=== PATIENT | female | born 1975 | race Caucasian/White ===

== ENCOUNTER 2016-07-17 19:01 | Inpatient (IN) | payer SELFPAY ==
[~2016-07-17] VITALS: Ht 167.6 cm; Wt 114.8 kg
[~2016-07-17 19:01] MED LIST: ALPR1TAB2 PO; CYCL10TA2 PO; IPRA4AER IH; LISI-338 PO; NAPR500T PO
[2016-07-17] MEDS ORDERED: DEXAMETHASONE SOD PHOS 4 MG/ML VIAL IV ONE (19:45)
[2016-07-17] MEDS ORDERED: IPRATRPIUM/ALBUTEROL 0.5/2.5MG 3 ML NEBU. NEB ONE (19:45)
[2016-07-17 20:01] LABS: BASO # 0.1 x10^3/uL (0.0-0.2); BASO % 1 % (0-3); EOS % 5 % (0-3); HEMATOCRIT 44.6 % (36.0-47.0); HEMOGLOBIN 14.8 g/dL (12.0-15.5); LYMPH # 2.5 x10^3/uL (1.0-4.8); LYMPH % 26 % (24-48); MEAN CORPUSCULAR HEMOGLOBIN 28 pg (25-35); MEAN CORPUSCULAR HGB CONC 33 g/dL (31-37); MEAN CORPUSCULAR VOLUME 84 fL (79-100); MONO % 7 % (0-9); NEUT % 61 % (31-73); PLATELET COUNT 204 x10^3/uL (140-400); RED BLOOD COUNT 5.29 x10^6/uL (3.50-5.40); RED CELL DISTRIBUTION WIDTH 16.2 % (11.5-14.5); WHITE BLOOD COUNT 9.4 x10^3/uL (4.0-11.0)
[2016-07-17 20:12] LABS: CALCIUM 8.4 mg/dL (8.5-10.1); CREATININE 0.8 mg/dL (0.6-1.0); GFR 78.3; POTASSIUM 4.3 mmol/L (3.5-5.1)
--- NOTE | 2016-07-17 20:41 | PHYS DOC ---
Past Medical History Past Medical History: Anxiety, Asthma, Depression Additional Past Medical Histor: back pain, CURRENTLY ON METHADONE PROGRAM FOR OPIOD ADDICTION Past Surgical History: Hysterectomy, Tubal ligation Additional Past Surgical Histo: UMBILICAL HERNIA, BLADDER SLING Alcohol Use: None Drug Use: None Adult General Chief Complaint Chief Complaint: MULTIPLE COMPLAINTS HPI HPI Patient is a 41 year old F who presents with increased shortness of breath and wheezing with a low-grade temperature for the past couple days. Patient states she's had a productive cough for the past couple days. Patient states she is a smoker with a history of asthma and has increased wheezing. Patient did denies any nausea/vomiting/diarrhea. Patient denies any chest pain. Patient is no other complaints. Pertinent exam finds: Wheezing bilaterally ED course: Patient was seen and examined CBC, CMP, troponin, EKG, chest x-ray, breathing treatment ordered 2224: Discussed CC/HP/PMH with Dr. Degroot and recommends admit [] 2305: Updated patient on CT findings and plan to her Lovenox for her PE, patient breathing is much better after her breathing treatments Pertinent results: 1950: EKG shows normal sinus rhythm rate of 87 no STEMI CTA chest: IMPRESSION: There is motion artifact versus filling defect in a second order branch of the right pulmonary artery. Pulmonary embolism is favored. Mediastinal bilateral hilar adenopathy. MDM: After reviewing the chart, CC/HPI/PMH, physical exam, [lab results], [ radiological results], leave the patient has acute asthma exacerbation with an acute PE contributing to her shortness of breath and wheezing. Patient be admitted to hospital for further evaluation and management. Patient was started on Lovenox. Review of Systems Review of Systems GEN: Denies fevers, chills, sweats HEENT: Denies blurred vision, sore throat CV: Denies chest pain RESP: Wheezing, shortness of breath, cough GI: Denies n/v/d NEURO: Denies confusion, dizziness MSK: Denies weakness, joint pain/swelling Current Medications Current Medications Current Medications Medications (Trade) Dose Ordered Sig/Georgette Start Time Stop Time Status Last Admin Dose Admin Albuterol/ Ipratropium (Duoneb) 3 ml 1X ONCE 07/17/16 19:45 07/17/16 19:46 DC 07/17/16 19:51 3 ML Dexamethasone Sodium Phosphate (Decadron) 10 mg 1X ONCE 07/17/16 19:45 07/17/16 19:46 DC 07/17/16 20:26 10 MG Info (Do NOT chart on this entry -- for MONITORING) 1 each PRN DAILY PRN 07/17/16 21:45 07/19/16 21:44 Iohexol (Omnipaque 350 Mg/ml) 100 ml 1X ONCE 07/17/16 22:00 07/17/16 22:01 DC 07/17/16 22:09 100 ML Allergies Allergies Allergies Coded Allergies Type Severity Reaction Last Updated Verified No Known Drug Allergies 01/19/13 No Physical Exam Physical Exam GEN.: No apparent distress. Alert and oriented. HEENT: Head is normocephalic, atraumatic NECK: Supple. LUNGS: Inspiratory and expiratory wheezes bilaterally. HEART: RRR, S1, S2 present. Peripheral pulses intact ABDOMEN: Soft, nontender. Positive bowel sounds. EXTREMITIES: Without any cyanosis. NEUROLOGIC: Normal speech, normal tone PSYCHIATRIC: Normal affect, normal mood. SKIN: No ulcerations Current Patient Data Vital Signs Vital Signs Date Time Temp Pulse Resp B/P (MAP) Pulse Ox O2 Delivery O2 Flow Rate FiO2 07/17/16 21:00 84 25 91 Nasal Cannula 4.0 07/17/16 20:30 144/83 (103) 07/17/16 19:10 99.8 99.8 Lab Values Laboratory Tests Test 07/17/16 19:50 White Blood Count 9.4 x10^3/uL (4.0-11.0) Red Blood Count 5.29 x10^6/uL (3.50-5.40) Hemoglobin 14.8 g/dL (12.0-15.5) Hematocrit 44.6 % (36.0-47.0) Mean Corpuscular Volume 84 fL (79-100) Mean Corpuscular Hemoglobin 28 pg (25-35) Mean Corpuscular Hemoglobin Concent 33 g/dL (31-37) Red Cell Distribution Width 16.2 % (11.5-14.5) H Platelet Count 204 x10^3/uL (140-400) Neutrophils (%) (Auto) 61 % (31-73) Lymphocytes (%) (Auto) 26 % (24-48) Monocytes (%) (Auto) 7 % (0-9) Eosinophils (%) (Auto) 5 % (0-3) H Basophils (%) (Auto) 1 % (0-3) Neutrophils # (Auto) 5.7 x10^3uL (1.8-7.7) Lymphocytes # (Auto) 2.5 x10^3/uL (1.0-4.8) Monocytes # (Auto) 0.7 x10^3/uL (0.0-1.1) Eosinophils # (Auto) 0.5 x10^3/uL (0.0-0.7) Basophils # (Auto) 0.1 x10^3/uL (0.0-0.2) Sodium Level 139 mmol/L (136-145) Potassium Level 4.3 mmol/L (3.5-5.1) Chloride Level 101 mmol/L (98-107) Carbon Dioxide Level 33 mmol/L (21-32) H Anion Gap 5 (6-14) L Blood Urea Nitrogen 10 mg/dL (7-20) Creatinine 0.8 mg/dL (0.6-1.0) Estimated GFR (Cockcroft-Gault) 78.3 Glucose Level 109 mg/dL (70-99) H Calcium Level 8.4 mg/dL (8.5-10.1) L Troponin I Quantitative < 0.017 ng/mL (0.000-0.055) Laboratory Tests 07/17/16 19:50 Laboratory Tests 07/17/16 19:50 EKG EKG EKG shows normal sinus rhythm rate of 87 no STEMI [] Radiology/Procedures Radiology/Procedures CTA chest: IMPRESSION: There is motion artifact versus filling defect in a second order branch of the right pulmonary artery. Pulmonary embolism is favored. Mediastinal bilateral hilar adenopathy.[] Course & Med Decision Making Course & Med Decision Making Pertinent Labs and Imaging studies reviewed. (See chart for details) [] Dragon Disclaimer Dragon Disclaimer This electronic medical record was generated, in whole or in part, using a voice recognition dictation system. Departure Departure Impression: Primary Impression: Pulmonary embolus Additional Impression: Asthma exacerbation Disposition: 09 ADMITTED INPATIENT Admitting Physician: Other (Dr. Degroot) Referrals: KATARZYNA DEGROOT MD (PCP) Problem Qualifiers Primary Impression: Pulmonary embolus Pulmonary embolism type: other Chronicity: acute Acute cor pulmonale presence: without acute cor pulmonale Qualified Codes: I26.99 - Other pulmonary embolism without acute cor pulmonale KATH EVANGELISTA DO Jul 17, 2016 20:41
[2016-07-17] MEDS ORDERED: CONTRAST GIVEN MC PRN (21:45)
[2016-07-17] MEDS ORDERED: IOHEXOL 350 MG/ML 100 ML VIAL. IV ONE (22:00)
[2016-07-17] MEDS ORDERED: MORPHINE SULFATE 4 MG/ML DISP.SYRIN. IV PRN (22:30)
[2016-07-17] MEDS ORDERED: ONDANSETRON PF 4 MG/2 ML VIAL. IV PRN (22:30)
[2016-07-17] MEDS ORDERED: ACETAMINOPHEN 325 MG TABLET. PO PRN (22:30)
--- NOTE | 2016-07-17 22:42 | RAD ---
CT Angio chest Indication: SOA, NO PRIORS Technique: Multiple contiguous axial images were obtained through the chest after administration of intravenous iodinated contrast. Coronal, sagittal, and 3-D MIP reformations were created. PQRS STATEMENT: One or more of the following in the visualized dose reduction techniques were utilized for this study: 1. Automatic exposure control, 2. Adjustment of the mA and/or kV according to patient size, 3. Use of iterative reconstruction technique Findings: There appears to be a filling defect within the second order branch of the pulmonary arteries on the right. This is best appreciated on axial image 55. Heart size is normal. No pericardial effusion. The thoracic aorta is normal in caliber. There is atelectasis noted in the bilateral lung bases. No pneumothorax. Motion artifact degrades some of the detail of the lung. Limited subdiaphragmatic evaluation is unremarkable. IMPRESSION: There is motion artifact versus filling defect in a second order branch of the right pulmonary artery. Pulmonary embolism is favored. Mediastinal bilateral hilar adenopathy. Electronically signed by: Johny Cespedes MD (07/17/2016 10:39 PM)
[2016-07-17] MEDS ORDERED: AZITHRMYCN 500MG IVPB FOR OMNI 250 ML IV ONE (23:00)
[2016-07-17] MEDS ORDERED: ANTI-COAG MONITOR BY PHARMACY. MC PRN (23:15)
[2016-07-17] MEDS ORDERED: ALPRAZolam 0.5 MG TABLET PO PRN (23:30)
[2016-07-18 00:08] VITALS: BP 132/88
[2016-07-18] MEDS ORDERED: PROAIR HFA8.5 GM INH (01:05)
[2016-07-18] MEDS ORDERED: CITA40TA12 PO (01:05)
[2016-07-18] MEDS ORDERED: METH10TA2 PO (01:05)
[2016-07-18] MEDS ORDERED: CLON1TAB PO (01:05)
[2016-07-18 03:25] VITALS: BP 119/66
[2016-07-18 04:55] LABS: BASO % 0 % (0-3); EOS % 0 % (0-3); HEMATOCRIT 45.9 % (36.0-47.0); LYMPH # 1.1 x10^3/uL (1.0-4.8); LYMPH % 12 % (24-48); MEAN CORPUSCULAR HEMOGLOBIN 28 pg (25-35); MEAN CORPUSCULAR HGB CONC 33 g/dL (31-37); MEAN CORPUSCULAR VOLUME 85 fL (79-100); MONO % 2 % (0-9); NEUT % 86 % (31-73); PLATELET COUNT 218 x10^3/uL (140-400); RED CELL DISTRIBUTION WIDTH 16.1 % (11.5-14.5); WHITE BLOOD COUNT 9.6 x10^3/uL (4.0-11.0)
[2016-07-18 05:11] LABS: CALCIUM 8.7 mg/dL (8.5-10.1); CREATININE 0.9 mg/dL (0.6-1.0); GFR 68.3; POTASSIUM 3.7 mmol/L (3.5-5.1)
[2016-07-18 07:00] VITALS: BP 105/63
[2016-07-18 07:28] LABS: PLT ESTIMATE ADEQUATE (ADEQUATE)
--- NOTE | 2016-07-18 08:01 | RAD ---
EXAM: Chest 2 views. HISTORY: Shortness of breath, fever, cough, chills, asthma. COMPARISON: 12/14/2014. FINDINGS: Frontal and lateral views of the chest are obtained. There are mild patchy airspace opacities in the bases, most overly in the left lower lobe. There is no pneumothorax or pleural effusion. The heart is not enlarged. IMPRESSION: 1. Bilateral mild lower lobe pneumonia. Follow-up to resolution is recommended.
[2016-07-18] MEDS ORDERED: clonazePAM 1 MG TABLET PO PRN (09:15)
[2016-07-18] MEDS: IPRATRPIUM/ALBUTEROL 0.5/2.5MG 3 ML NEBU. NEB SCH ×2 (09:20→11:57)
--- NOTE | 2016-07-18 22:03 | PDOC1 ---
History and Physical Date of Admission Date of Admission 07/17/16 Identification/Chief Complaint Chief Complaint Shortness of breath Problems: History of Present Illness History of Present Illness Unable to be obtained as patient left AMA before I was able to see her Current Problem List Problem List Problems Medical Problems: (1) Asthma exacerbation Status: Acute (2) Pulmonary embolus Status: Acute Current Medications Current Medications Current Medications Medications (Trade) Dose Ordered Sig/Georgette Start Time Stop Time Status Last Admin Dose Admin Acetaminophen (Tylenol) 650 mg PRN Q4HRS PRN 07/17/16 22:30 07/18/16 13:31 DC Albuterol/ Ipratropium (Duoneb) 3 ml RTQID 07/18/16 09:20 07/18/16 13:32 DC Alprazolam (Xanax) 0.5 mg PRN Q8HRS PRN 07/17/16 23:30 07/18/16 09:19 DC 07/17/16 23:31 0.5 MG Azithromycin 250 ml @ 250 mls/hr 1X ONCE 07/17/16 23:00 07/17/16 23:59 DC 07/18/16 00:26 250 MLS/HR Ceftriaxone Sodium 50 ml @ 100 mls/hr 1X ONCE 07/17/16 23:00 07/17/16 23:29 DC 07/18/16 00:25 100 MLS/HR Clonazepam (KlonoPIN) 1 mg PRN BID PRN 07/18/16 09:15 07/18/16 13:31 DC Dexamethasone Sodium Phosphate (Decadron) 10 mg 1X ONCE 07/17/16 19:45 07/17/16 19:46 DC 07/17/16 20:26 10 MG Enoxaparin Sodium (Lovenox 120mg Syringe) 110 mg Q12HR 07/18/16 09:00 07/18/16 13:31 DC Enoxaparin Sodium (Lovenox Per Pharmacy Treatment Dosing) 1 each PRN DAILY PRN 07/17/16 23:15 07/18/16 13:31 DC Info (Anti-Coagulation Monitoring By Pharmacy) 1 each PRN DAILY PRN 07/17/16 23:15 07/18/16 13:31 DC 07/18/16 01:34 1 EACH Info (Do NOT chart on this entry -- for MONITORING) 1 each PRN DAILY PRN 07/17/16 21:45 07/18/16 13:31 DC Iohexol (Omnipaque 350 Mg/ml) 100 ml 1X ONCE 07/17/16 22:00 07/17/16 22:01 DC 07/17/16 22:09 100 ML Morphine Sulfate 4 mg PRN Q2HR PRN 07/17/16 22:30 07/18/16 06:59 DC Ondansetron HCl (Zofran) 4 mg PRN Q8HRS PRN 07/17/16 22:30 07/18/16 13:31 DC Allergies Allergies Allergies Coded Allergies Type Severity Reaction Last Updated Verified No Known Drug Allergies 01/19/13 No ROS Review of System CONSTITUTIONAL: No fever or chills EYES: No recent changes SKIN: No rash or itching CARDIOVASCULAR: No chest pain, syncope, palpitations, or edema RESPIRATORY: No SOB or cough GASTROINTESTINAL: No nausea, vomiting or abdominal pain NEUROLOGICAL: No headaches or weakness ENDOCRINE: No cold or heat intolerance GENITOURINARY: No urgency or frequency of urination MUSCULOSKELETAL: No back pain or joint pain LYMPHATICS: No enlarged lymph nodes PSYCHIATRIC: No anxiety or depression Physical Exam Physical Exam GEN.: No apparent distress. Alert and oriented. HEENT: Head is normocephalic, atraumatic NECK: Supple. LUNGS: Clear to auscultation. HEART: RRR, S1, S2 present. Peripheral pulses intact ABDOMEN: Soft, nontender. Positive bowel sounds. EXTREMITIES: Without any cyanosis. NEUROLOGIC: Normal speech, normal tone PSYCHIATRIC: Normal affect, normal mood. SKIN: No ulcerations Vitals Vitals Vital Signs Date Time Temp Pulse Resp B/P (MAP) Pulse Ox O2 Delivery O2 Flow Rate FiO2 07/18/16 08:15 Nasal Cannula 4.0 07/18/16 07:00 97.5 56 18 105/63 (77) 86 97.5 Labs Labs Laboratory Tests Test 07/17/16 00:10 07/17/16 19:50 07/18/16 04:25 Lactic Acid Level 1.2 mmol/L (0.4-2.0) White Blood Count 9.4 x10^3/uL (4.0-11.0) 9.6 x10^3/uL (4.0-11.0) Red Blood Count 5.29 x10^6/uL (3.50-5.40) 5.40 x10^6/uL (3.50-5.40) Hemoglobin 14.8 g/dL (12.0-15.5) 15.0 g/dL (12.0-15.5) Hematocrit 44.6 % (36.0-47.0) 45.9 % (36.0-47.0) Mean Corpuscular Volume 84 fL (79-100) 85 fL (79-100) Mean Corpuscular Hemoglobin 28 pg (25-35) 28 pg (25-35) Mean Corpuscular Hemoglobin Concent 33 g/dL (31-37) 33 g/dL (31-37) Red Cell Distribution Width 16.2 % (11.5-14.5) 16.1 % (11.5-14.5) Platelet Count 204 x10^3/uL (140-400) 218 x10^3/uL (140-400) Neutrophils (%) (Auto) 61 % (31-73) 86 % (31-73) Lymphocytes (%) (Auto) 26 % (24-48) 12 % (24-48) Monocytes (%) (Auto) 7 % (0-9) 2 % (0-9) Eosinophils (%) (Auto) 5 % (0-3) 0 % (0-3) Basophils (%) (Auto) 1 % (0-3) 0 % (0-3) Neutrophils # (Auto) 5.7 x10^3uL (1.8-7.7) 8.3 x10^3uL (1.8-7.7) Lymphocytes # (Auto) 2.5 x10^3/uL (1.0-4.8) 1.1 x10^3/uL (1.0-4.8) Monocytes # (Auto) 0.7 x10^3/uL (0.0-1.1) 0.2 x10^3/uL (0.0-1.1) Eosinophils # (Auto) 0.5 x10^3/uL (0.0-0.7) 0.0 x10^3/uL (0.0-0.7) Basophils # (Auto) 0.1 x10^3/uL (0.0-0.2) 0.0 x10^3/uL (0.0-0.2) Sodium Level 139 mmol/L (136-145) 139 mmol/L (136-145) Potassium Level 4.3 mmol/L (3.5-5.1) 3.7 mmol/L (3.5-5.1) Chloride Level 101 mmol/L (98-107) 103 mmol/L (98-107) Carbon Dioxide Level 33 mmol/L (21-32) 28 mmol/L (21-32) Anion Gap 5 (6-14) 8 (6-14) Blood Urea Nitrogen 10 mg/dL (7-20) 12 mg/dL (7-20) Creatinine 0.8 mg/dL (0.6-1.0) 0.9 mg/dL (0.6-1.0) Estimated GFR (Cockcroft-Gault) 78.3 68.3 Glucose Level 109 mg/dL (70-99) 236 mg/dL (70-99) Calcium Level 8.4 mg/dL (8.5-10.1) 8.7 mg/dL (8.5-10.1) Troponin I Quantitative < 0.017 ng/mL (0.000-0.055) Segmented Neutrophils % 92 % (35-66) Lymphocytes % 7 % (24-48) Monocytes % 1 % (0-10) Platelet Estimate Adequate (ADEQUATE) Laboratory Tests Test 07/18/16 04:25 White Blood Count 9.6 x10^3/uL (4.0-11.0) Red Blood Count 5.40 x10^6/uL (3.50-5.40) Hemoglobin 15.0 g/dL (12.0-15.5) Hematocrit 45.9 % (36.0-47.0) Mean Corpuscular Volume 85 fL (79-100) Mean Corpuscular Hemoglobin 28 pg (25-35) Mean Corpuscular Hemoglobin Concent 33 g/dL (31-37) Red Cell Distribution Width 16.1 % (11.5-14.5) Platelet Count 218 x10^3/uL (140-400) Neutrophils (%) (Auto) 86 % (31-73) Lymphocytes (%) (Auto) 12 % (24-48) Monocytes (%) (Auto) 2 % (0-9) Eosinophils (%) (Auto) 0 % (0-3) Basophils (%) (Auto) 0 % (0-3) Neutrophils # (Auto) 8.3 x10^3uL (1.8-7.7) Lymphocytes # (Auto) 1.1 x10^3/uL (1.0-4.8) Monocytes # (Auto) 0.2 x10^3/uL (0.0-1.1) Eosinophils # (Auto) 0.0 x10^3/uL (0.0-0.7) Basophils # (Auto) 0.0 x10^3/uL (0.0-0.2) Segmented Neutrophils % 92 % (35-66) Lymphocytes % 7 % (24-48) Monocytes % 1 % (0-10) Platelet Estimate Adequate (ADEQUATE) Sodium Level 139 mmol/L (136-145) Potassium Level 3.7 mmol/L (3.5-5.1) Chloride Level 103 mmol/L (98-107) Carbon Dioxide Level 28 mmol/L (21-32) Anion Gap 8 (6-14) Blood Urea Nitrogen 12 mg/dL (7-20) Creatinine 0.9 mg/dL (0.6-1.0) Estimated GFR (Cockcroft-Gault) 68.3 Glucose Level 236 mg/dL (70-99) Calcium Level 8.7 mg/dL (8.5-10.1) VTE Prophylaxis Ordered VTE Prophylaxis Devices: Yes VTE Pharmacological Prophylaxi: Yes Assessment/Plan Assessment/Plan 41yo F with hx of HTN, anxiety, asthma, tobacco abuse, opiate addiction on chronic methadone therapy p/w shortness of breath. Pt found to have acute pulmonary embolism, admitted and started on Lovenox. However, patient had a Methadone appt the day following admission and left around 10am the morning after admission. I was unable to see the patient prior to her leaving. KATARZYNA PERDOMO MD Jul 18, 2016 22:03
--- NOTE | 2016-07-19 08:51 | EKG ---
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
== END 2016-07-18 10:00 | disposition left against medical advice (07) | DRG 176 ==
LOC: ER 19:01 → 4 NORTH 22:26
PROVIDERS: ADMIT Family Medicine; ATTEND Family Medicine
DX: I26.99 Other pulmonary embolism without acute cor pulmonale (principal); J45.901 Unspecified asthma with (acute) exacerbation; F11.20 Opioid dependence, uncomplicated; I10 Essential (primary) hypertension; F32.9 Major depressive disorder, single episode, unspecified; F41.9 Anxiety disorder, unspecified; Z53.21 Procedure and treatment not carried out due to patient leaving prior to being seen by health care provider; F17.200 Nicotine dependence, unspecified, uncomplicated; Z90.710 Acquired absence of both cervix and uterus; Z98.51 Tubal ligation status
CPT/HCPCS: 36415; 71020; 71275; 80048; 83605; 84484; 85007; 85027; 87040; 93005; 94640; 96372; 96374; 99406; J0456; J0690; J1100; J1650; J7620; Q9967; 99285-25

== ENCOUNTER 2016-07-29 23:04 | Emergency (ER) | payer SELFPAY ==
[~2016-07-29] VITALS: Ht 172.7 cm; Wt 114.8 kg
[~2016-07-29 23:04] MED LIST changes: +CITA40TA12 PO; +CLON1TAB PO; +METH10TA2 PO; +PROAIR HFA8.5 GM INH
--- NOTE | 2016-07-30 | PHYS DOC ---
Past Medical History Past Medical History: Anxiety, Asthma, Depression, Pneumonia Additional Past Medical Histor: back pain, CURRENTLY ON METHADONE PROGRAM FOR OPIOD ADDICTION,PE Past Surgical History: Hysterectomy, Tubal ligation Additional Past Surgical Histo: UMBILICAL HERNIA, BLADDER SLING Alcohol Use: None Drug Use: Opiates Social History Narrative: CURRENTLY ON METHADONE PROGRAM FOR OPIATE USE Adult General Chief Complaint Chief Complaint: CHEST PAIN HPI HPI Patient is a 41 year old female with recent diagnosis of pulmonary embolism who presents with family for concern of health. She has been anxious today about her health since changing to Xarelto from Coumadin. She made this change today. Her anxiety worsened tonight, leading to panic attack. She noted chest pain, general shakiness, and anxious feeling exactly like prior panic attacks. Since arrival to the emergency department and seeing her normal vitals, her symptoms have resolved. She is currently asymptomatic during my exam. Other than EKG, she does not want any further workup. She denies cough, fever or chills, hemoptysis, leg pain or swelling, palpitations, orthopnea, exertional symptoms. Review of Systems Review of Systems Constitutional: Denies fever or chills [] Eyes: Denies change in visual acuity, redness, or eye pain [] HENT: Denies nasal congestion or sore throat [] Respiratory: Denies cough or shortness of breath [] Cardiovascular: No additional information not addressed in HPI [] GI: Denies abdominal pain, nausea, vomiting, bloody stools or diarrhea [] : Denies dysuria or hematuria [] Musculoskeletal: Denies back pain or joint pain [] Integument: Denies rash or skin lesions [] Neurologic: Denies headache, focal weakness or sensory changes [] Endocrine: Denies polyuria or polydipsia [] Allergies Allergies Allergies Coded Allergies Type Severity Reaction Last Updated Verified No Known Drug Allergies 01/19/13 No Physical Exam Physical Exam Constitutional: Well developed, well nourished, no acute distress, non-toxic appearance. [] HENT: Normocephalic, atraumatic, bilateral external ears normal, oropharynx moist, nose normal. [] Eyes: PERRLA, EOMI. [] Neck: Normal range of motion, supple. [] Cardiovascular:Heart rate regular rhythm [] Lungs & Thorax: Bilateral breath sounds clear to auscultation [] Abdomen: Bowel sounds normal, soft, no tenderness. [] Skin: Warm, dry, no erythema, no rash. [] Back: Normal range of motion. [] Extremities: No tenderness, ROM intact, no edema, no palpable cord. [] Neurologic: Alert and oriented X 3, normal motor function, normal sensory function, no focal deficits noted. [] Psychologic: Affect normal, judgement normal, mood normal. [] Current Patient Data Vital Signs Vital Signs Date Time Temp Pulse Resp B/P (MAP) Pulse Ox O2 Delivery O2 Flow Rate FiO2 07/30/16 00:45 67 20 143/79 (100) 96 Room Air 07/29/16 23:10 98.5 98.5 EKG EKG EKG as interpreted by me as normal sinus rhythm, rate 84, no ST-T changes, OK 98 , QTc 471, no ectopy Course & Med Decision Making Course & Med Decision Making She has remained without symptoms during observation. She would like to be discharged home. Return precautions given. She understands and agrees with plan. Dragon Disclaimer Dragon Disclaimer This electronic medical record was generated, in whole or in part, using a voice recognition dictation system. Departure Departure Impression: Primary Impression: Anxiety attack Disposition: HOME, SELF-CARE Condition: STABLE Referrals: KATARZYNA PERDOMO MD (PCP) Patient Instructions: Medical Screening Exam Additional Instructions: Continue current medications. Follow-up with your primary care doctor. Return for any concerns. Stefanie NEIL MD Jul 30, 2016 00:00
[2016-07-30 00:45] VITALS: BP 143/79
--- NOTE | 2016-07-30 08:49 | EKG ---
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
== END 2016-07-30 00:45 | disposition home or self-care (01) ==
LOC: ER 23:04
DX: F41.9 Anxiety disorder, unspecified (principal); J45.909 Unspecified asthma, uncomplicated; Z90.710 Acquired absence of both cervix and uterus; Z98.51 Tubal ligation status; Z86.711 Personal history of pulmonary embolism; F32.9 Major depressive disorder, single episode, unspecified; F41.0 Panic disorder [episodic paroxysmal anxiety]; F11.10 Opioid abuse, uncomplicated
CPT/HCPCS: 93005; 99284

== ENCOUNTER 2016-11-02 22:02 | Emergency (ER) | payer SELFPAY ==
[~2016-11-02] VITALS: Ht 167.6 cm; Wt 99.8 kg
[2016-11-02 22:42] VITALS: BP 144/80
[2016-11-02] MEDS ORDERED: SULF1TAB24 PO (23:45)
[2016-11-02] MEDS ORDERED: NYST15CR TP (23:45)
--- NOTE | 2016-11-02 23:45 | PHYS DOC ---
Past Medical History Past Medical History: Anxiety, Asthma, Depression, Pneumonia Additional Past Medical Histor: back pain, CURRENTLY ON METHADONE PROGRAM FOR OPIOD ADDICTION,PE Past Surgical History: Hysterectomy, Tubal ligation Additional Past Surgical Histo: UMBILICAL HERNIA, BLADDER SLING Alcohol Use: Occasionally Drug Use: Methadone Adult General Chief Complaint Chief Complaint: ABSCESS HPI HPI Patient is a 41 year old female presents to the emergency room and stating that she has an abscess in her perineal area. She states that she noticed him for one day. She states that her boyfriend tried to squeeze the area in which he states he did get some yellow drainage from the site however patient states that hurts that she was passed out. He area appears to be red and hard in nature. Patient also has a yeast infection in the panniculus area. Patient denies fever, chills or any nausea vomiting. She states her tetanus immunization is up-to-date. Review of Systems Review of Systems Constitutional: Denies fever or chills [] Eyes: Denies change in visual acuity, redness, or eye pain [] HENT: Denies nasal congestion or sore throat [] Respiratory: Denies cough or shortness of breath [] Cardiovascular: No additional information not addressed in HPI [] GI: Denies abdominal pain, nausea, vomiting, bloody stools or diarrhea [] : Denies dysuria or hematuria [] Musculoskeletal: Denies back pain or joint pain [] Integument: Denies rash or skin lesions [] Neurologic: Denies headache, focal weakness or sensory changes [] Endocrine: Denies polyuria or polydipsia [] Allergies Allergies Allergies Coded Allergies Type Severity Reaction Last Updated Verified No Known Drug Allergies 01/19/13 No Physical Exam Physical Exam Constitutional: Well developed, well nourished, no acute distress, non-toxic appearance. [] HENT: Normocephalic, atraumatic, bilateral external ears normal, oropharynx moist, no oral exudates, nose normal. [] Eyes: PERRLA, EOMI, conjunctiva normal, no discharge. [] Neck: Normal range of motion, no tenderness, supple, no stridor. [] Cardiovascular: Patient pink warm and dry Lungs & Thorax: No respiratory distress noted Skin: Warm, dry, no erythema, red yeast type rash noted in the panniculus abdomen. Patient with an abscess noted in the perineal area the area appears to be red with a dark area in the middle. No induration noted. Extremities: No tenderness, no cyanosis, no clubbing, ROM intact, no edema. [] Neurologic: Alert and oriented X 3, normal motor function, normal sensory function, no focal deficits noted. [] Psychologic: Affect normal, judgement normal, mood normal. [] Current Patient Data Vital Signs Vital Signs Date Time Temp Pulse Resp B/P (MAP) Pulse Ox O2 Delivery O2 Flow Rate FiO2 11/02/16 22:42 98.2 78 18 96 Room Air 98.2 EKG EKG [] Radiology/Procedures Radiology/Procedures [] Course & Med Decision Making Course & Med Decision Making Pertinent Labs and Imaging studies reviewed. (See chart for details) Patient will be provided with a prescription for Bactrim as well as nystatin. She was recommended to keep the areas clean and dry. Also recommended warm moist packs to the perineum area 5 times a day to help promote drainage. Patient was encouraged to follow-up with primary care physician in the next 3-5 days. Signs and symptoms to return back to emergency department been provided. All questions and concerns been answered at patient's bedside. [] Dragon Disclaimer Dragon Disclaimer This electronic medical record was generated, in whole or in part, using a voice recognition dictation system. Departure Departure Impression: Primary Impression: Abscess Additional Impression: Jessica infection Disposition: 01 HOME, SELF-CARE Condition: STABLE Referrals: KATARZYNA PERDOMO MD (PCP) Patient Instructions: Abscess, [id number], Yeast Infection of the Skin, Easy- to-Read Additional Instructions: Keep the area clean and dry. Wash areas with soap and water several times a day. Use the nystatin cream underneath your abdominal area. Warm moist packs to the abscessed area 5 times a day. Medication as prescribed. Follow-up primary care physician next 5-7 days. Return back to emergency prior signs and symptoms of become worse. Scripts Sulfamethoxazole/Trimethoprim (BACTRIM DS TABLET) 1 Each Tablet 1 TAB PO BID, #20 TAB Prov: FRANCISCA MORATAYA APRN 11/02/16 Nystatin (NYSTATIN) 15 Gm Cream..g. 1 GEMA TP BID, #30 GM Prov: FRANCISCA MORATAYA APRN 11/02/16 Problem Qualifiers FRANCISCA MORATAYA APRN Nov 02, 2016 23:45
== END 2016-11-03 00:16 | disposition home or self-care (01) ==
LOC: ER 22:02
DX: L02.215 Cutaneous abscess of perineum (principal); B37.9 Candidiasis, unspecified; F41.9 Anxiety disorder, unspecified; F32.9 Major depressive disorder, single episode, unspecified; J45.909 Unspecified asthma, uncomplicated; F11.10 Opioid abuse, uncomplicated; Z87.01 Personal history of pneumonia (recurrent); Z96.0 Presence of urogenital implants; Z90.710 Acquired absence of both cervix and uterus; Z98.51 Tubal ligation status
CPT/HCPCS: 99283

== ENCOUNTER 2017-01-27 14:16 | Emergency (ER) | payer SELFPAY ==
[2017-01-09 14:45] VITALS: BP 123/51
[~2017-01-27 14:16] MED LIST changes: +DOXY100C2 PO; +IPRA3AMP NEB; +NAPR-683 PO; -NAPR500T PO; +NYST15CR TP; +RIVA1TAB PO; +SULF1TAB24 PO
[2017-01-27] MEDS ORDERED: RIVA20TA2 PO (23:06)
[2017-01-29] MEDS ORDERED: LEVO750T5 PO (13:11)
== END 2017-01-27 14:55 | disposition left against medical advice (07) ==
LOC: ER 14:16
DX: Z53.21 Procedure and treatment not carried out due to patient leaving prior to being seen by health care provider (principal)

== ENCOUNTER 2017-01-27 17:09 | Inpatient (IN) | payer SELFPAY ==
[~2017-01-27] VITALS: Ht 167.6 cm; Wt 117.0 kg
--- NOTE | 2017-01-27 18:16 | EKG ---
[facility] [address] [place] [address] Test Date: 2017-01-27 Test Time: 18:12:06 Pat Name: DREA JOHNSTON Department: Room: Gender: F Acid Mixer: TW : 1975 Requested By: KADEN RUTH Order Number: [id number] Reading MD: Measurements Intervals [place] Rate: 118 P: -56 TX: 132 QRS: 45 QRSD: 82 T: 52 QT: 320 QTc: 451 Interpretive Statements SINUS TACHYCARDIA OTHERWISE NORMAL ECG RI6.01 Compared to ECG 01/07/2017 12:49:09 No significant changes
[2017-01-27 18:31] LABS: OBC FLU VALID
[2017-01-27 19:00] LABS: BASO # 0.1 x10^3/uL (0.0-0.2); BASO % 1 % (0-3); EOS % 2 % (0-3); HEMATOCRIT 44.7 % (36.0-47.0); HEMOGLOBIN 14.8 g/dL (12.0-15.5); LYMPH # 1.2 x10^3/uL (1.0-4.8); LYMPH % 8 % (24-48); MEAN CORPUSCULAR HEMOGLOBIN 28 pg (25-35); MEAN CORPUSCULAR HGB CONC 33 g/dL (31-37); MEAN CORPUSCULAR VOLUME 86 fL (79-100); MONO % 2 % (0-9); NEUT % 88 % (31-73); PLATELET COUNT 214 x10^3/uL (140-400); RED BLOOD COUNT 5.21 x10^6/uL (3.50-5.40); RED CELL DISTRIBUTION WIDTH 14.3 % (11.5-14.5); WHITE BLOOD COUNT 15.2 x10^3/uL (4.0-11.0)
[2017-01-27] MEDS ORDERED: KETOROLAC 15 MG/ML VIAL. IV ONE (19:00)
[2017-01-27] MEDS ORDERED: AZITHRMYCN 500MG IVPB FOR OMNI 250 ML IV ONE (19:00)
[2017-01-27] MEDS ORDERED: IV NORMAL SALINE 1000ML BAG 1,000 ML IV ONE ×3 (19:00→21:30)
[2017-01-27] MEDS ORDERED: ACETAMINOPHEN 325 MG TABLET. PO ONE (19:00)
[2017-01-27] MEDS ORDERED: ONDANSETRON PF 4 MG/2 ML VIAL. IV ONE (19:00)
[2017-01-27 19:11] LABS: CALCIUM 8.3 mg/dL (8.5-10.1); CREATININE 0.8 mg/dL (0.6-1.0); GFR 78.3; POTASSIUM 3.9 mmol/L (3.5-5.1)
[2017-01-27 19:16] LABS: ALBUMIN 3.4 g/dL (3.4-5.0); ALBUMIN/GLOBULIN RATIO 0.7 (1.0-1.7); TOTAL BILIRUBIN 0.3 mg/dL (0.2-1.0)
[2017-01-27 19:25] LABS: % EOS 1 % (0-5); PLT ESTIMATE ADEQUATE (ADEQUATE)
[2017-01-27 20:12] LABS: BILIRUBIN,URINE NEGATIVE (NEG); GLUCOSE,URINE NEGATIVE (NEG); NITRITE,URINE NEGATIVE (NEG); PH,URINE 5.5; PROTEIN,URINE NEGATIVE (NEG-TRACE); UROBILINOGEN,URINE 0.2 mg/dL (0.2 mg/dL)
[2017-01-27 20:23] LABS: BACTERIA,URINE FEW /HPF (0-FEW); RBC,URINE 0 /HPF (0-2); SQUAMOUS EPITHELIAL CELL,UR OCC /LPF; WBC,URINE OCC /HPF (0-4)
[2017-01-27] MEDS ORDERED: IPRATRPIUM/ALBUTEROL 0.5/2.5MG 3 ML NEBU. ONE (21:02)
[2017-01-27] MEDS ORDERED: ONDANSETRON PF 4 MG/2 ML VIAL. IV PRN (21:30)
[2017-01-27] MEDS ORDERED: IPRATRPIUM/ALBUTEROL 0.5/2.5MG 3 ML NEBU. NEB ONE (21:30)
[2017-01-27 22:30] VITALS: BP 95/49
[2017-01-27] MEDS: ACETAMINOPHEN 325 MG TABLET. PO PRN (23:04)
[2017-01-27] MEDS ORDERED: RIVA20TA2 PO (23:06)
[2017-01-28] VITALS (8 sets, daily range): BP systolic 105–126; BP diastolic 65–79
[2017-01-28] MEDS: IV RINGERS,LACTATED 1000ML 1,000 ML IV SCH ×3 (00:24→16:23)
[2017-01-28 05:31] LABS: BASO # 0.1 x10^3/uL (0.0-0.2); BASO % 1 % (0-3); EOS % 1 % (0-3); HEMATOCRIT 41.9 % (36.0-47.0); HEMOGLOBIN 13.5 g/dL (12.0-15.5); LYMPH # 1.3 x10^3/uL (1.0-4.8); LYMPH % 7 % (24-48); MEAN CORPUSCULAR HEMOGLOBIN 28 pg (25-35); MEAN CORPUSCULAR HGB CONC 32 g/dL (31-37); MEAN CORPUSCULAR VOLUME 88 fL (79-100); MONO % 3 % (0-9); NEUT % 88 % (31-73); PLATELET COUNT 198 x10^3/uL (140-400); RED BLOOD COUNT 4.79 x10^6/uL (3.50-5.40); RED CELL DISTRIBUTION WIDTH 14.2 % (11.5-14.5); WHITE BLOOD COUNT 18.4 x10^3/uL (4.0-11.0)
--- NOTE | 2017-01-28 05:41 | PHYS DOC ---
Past Medical History Past Medical History: Anxiety, Asthma, Depression, DVT, Pneumonia Additional Past Medical Histor: back pain, CURRENTLY ON METHADONE PROGRAM FOR OPIOD ADDICTION,PE Past Surgical History: Hysterectomy, Tubal ligation, Other Additional Past Surgical Histo: UMBILICAL HERNIA, BLADDER SLING Alcohol Use: None Drug Use: None Adult General Chief Complaint Chief Complaint: SHORTNESS OF BREATH HPI HPI Patient is a 41 year old female who presents to the ER today secondary to shortness of breath. Patient reports she's had fevers nonproductive cough. Patient reports she's had diffuse myalgias. Patient has a nausea vomiting diarrhea. Patient complains of sharp chest pain shortness of breath. Patient has a dysuria frequency or urgency. Patient does have a history of hypertension and asthma as well as COPD. Patient had recent diagnosis of pneumonia. Patient has no diabetes liver or kidney problems. Patient reports she is a heavy smoker. Patient is known drug allergies. Patient reports she has not had her flu shot as of yet. Review of systems: Constitutional: Diffuse myalgias and fevers. Eyes: Denies change in visual acuity, redness, or eye pain HENT: Cough sore throat myalgias All other systems were reviewed and found to be within normal limits, except as documented in this note. Physical exam Constitutional: Well developed, well nourished, no acute distress, non-toxic appearance. HENT: Normocephalic, atraumatic, bilateral external ears normal, oropharynx moist, no oral exudates, nose normal. Eyes: PERRLA, EOMI, conjunctiva normal, no discharge. Neck: Normal range of motion, no tenderness, supple, no stridor. Cardiovascular: Tachycardic 110 Lungs & Thorax: Coarse breath sounds bilaterally. Decreased breath sounds throughout. Abdomen: Nondistended. Skin: Warm, dry, no erythema, no rash. Back: No tenderness, no CVA tenderness. Extremities: No tenderness, no cyanosis, no clubbing, ROM intact, no edema. Neurologic: Alert and oriented X 3, normal motor function, normal sensory function, no focal deficits noted. Psychologic: Affect normal, judgement normal, mood normal. ER physical exam is significant for: Diffuse inspiratory and expiratory rhonchi and wheezing. Patient is tachypneic upon arrival. Patient's pulse ox is 80% on room air. Patient is hypoxic. Patient is tachypneic. Chest x-ray reveals a likely early left lower lobe pneumonia. Patient's CBC and CMP were unremarkable except for leukocytosis. Assessment and plan: 1. 41-year-old female who presents here today with a history of pneumonia and COPD past presents to the ER with an elevated lactic acid and a pneumonia consistent with sepsis. Patient was started on normal saline solution 30 mL/kg. Patient was started on antibiotics Zithromax and Rocephin. Patient's influenza test was negative. Patient's clinically and hemodynamically stable at this time for admission to floor bed with supplemental oxygen and pulmonary evaluation. Critical care time of 35 minutes were utilizing a treatment and management of this patient's hypoxia, respiratory failure, pneumonia with sepsis. Current Medications Current Medications Current Medications Medications (Trade) Dose Ordered Sig/Georgette Start Time Stop Time Status Last Admin Dose Admin Acetaminophen (Tylenol) 650 mg 1X ONCE 01/27/17 19:00 01/27/17 19:01 DC 01/27/17 19:04 650 MG Albuterol/ Ipratropium (Duoneb) 3 ml STK-MED ONCE 01/27/17 21:02 01/27/17 21:03 DC Azithromycin 250 ml @ 250 mls/hr 1X ONCE 01/27/17 19:00 01/27/17 19:59 DC 01/27/17 19:26 250 MLS/HR Ceftriaxone Sodium 50 ml @ 100 mls/hr 1X ONCE 01/27/17 19:00 01/27/17 19:29 DC 01/27/17 19:08 100 MLS/HR Ketorolac Tromethamine (Toradol) 15 mg 1X ONCE 01/27/17 19:00 01/27/17 19:01 DC 01/27/17 19:06 15 MG Ondansetron HCl (Zofran) 4 mg 1X ONCE 01/27/17 19:00 01/27/17 19:01 DC 01/27/17 19:06 4 MG Sodium Chloride 1,000 ml @ 1,000 mls/hr 1X ONCE 01/27/17 19:00 01/27/17 19:59 DC 01/27/17 19:05 1,000 MLS/HR Allergies Allergies Allergies Coded Allergies Type Severity Reaction Last Updated Verified No Known Drug Allergies 01/19/13 No Current Patient Data Vital Signs Vital Signs Date Time Temp Pulse Resp B/P (MAP) Pulse Ox O2 Delivery O2 Flow Rate FiO2 01/27/17 21:05 107 22 134/66 (88) 95 Nasal Cannula 2.0 01/27/17 19:30 99.5 99.5 Lab Values Laboratory Tests Test 01/27/17 17:45 01/27/17 17:52 01/27/17 20:02 White Blood Count 15.2 x10^3/uL (4.0-11.0) H Red Blood Count 5.21 x10^6/uL (3.50-5.40) Hemoglobin 14.8 g/dL (12.0-15.5) Hematocrit 44.7 % (36.0-47.0) Mean Corpuscular Volume 86 fL (79-100) Mean Corpuscular Hemoglobin 28 pg (25-35) Mean Corpuscular Hemoglobin Concent 33 g/dL (31-37) Red Cell Distribution Width 14.3 % (11.5-14.5) Platelet Count 214 x10^3/uL (140-400) Neutrophils (%) (Auto) 88 % (31-73) H Lymphocytes (%) (Auto) 8 % (24-48) L Monocytes (%) (Auto) 2 % (0-9) Eosinophils (%) (Auto) 2 % (0-3) Basophils (%) (Auto) 1 % (0-3) Neutrophils # (Auto) 13.3 x10^3uL (1.8-7.7) H Lymphocytes # (Auto) 1.2 x10^3/uL (1.0-4.8) Monocytes # (Auto) 0.3 x10^3/uL (0.0-1.1) Eosinophils # (Auto) 0.2 x10^3/uL (0.0-0.7) Basophils # (Auto) 0.1 x10^3/uL (0.0-0.2) Segmented Neutrophils % 68 % (35-66) H Band Neutrophils % 19 % (0-9) H Lymphocytes % 9 % (24-48) L Monocytes % 3 % (0-10) Eosinophils % 1 % (0-5) Platelet Estimate Adequate (ADEQUATE) Sodium Level 141 mmol/L (136-145) Potassium Level 3.9 mmol/L (3.5-5.1) Chloride Level 102 mmol/L (98-107) Carbon Dioxide Level 30 mmol/L (21-32) Anion Gap 9 (6-14) Blood Urea Nitrogen 6 mg/dL (7-20) L Creatinine 0.8 mg/dL (0.6-1.0) Estimated GFR (Cockcroft-Gault) 78.3 BUN/Creatinine Ratio 8 (6-20) Glucose Level 83 mg/dL (70-99) Lactic Acid Level 2.2 mmol/L (0.4-2.0) H Calcium Level 8.3 mg/dL (8.5-10.1) L Total Bilirubin 0.3 mg/dL (0.2-1.0) Aspartate Amino Transferase (AST) 24 U/L (15-37) Alanine Aminotransferase (ALT) 32 U/L (14-59) Alkaline Phosphatase 64 U/L (46-116) Total Protein 8.0 g/dL (6.4-8.2) Albumin 3.4 g/dL (3.4-5.0) Albumin/Globulin Ratio 0.7 (1.0-1.7) L Procalcitonin < 0.10 ng/mL (0.00-0.10) Influenza Type A Antigen Negative (NEGATIVE) Influenza Type B Antigen Negative (NEGATIVE) Urine Color Yellow Urine Clarity Clear Urine pH 5.5 Urine Specific [place] 1.015 Urine Protein Negative mg/dL (NEG-TRACE) Urine Glucose (UA) Negative mg/dL (NEG) Urine Ketones (Stick) Negative mg/dL (NEG) Urine Blood Negative (NEG) Urine Nitrite Negative (NEG) Urine Bilirubin Negative (NEG) Urine Urobilinogen Dipstick 0.2 mg/dL (0.2 mg/dL) Urine Leukocyte Esterase Negative (NEG) Urine RBC 0 /HPF (0-2) Urine WBC Occ /HPF (0-4) Urine Squamous Epithelial Cells Occ /LPF Urine Bacteria Few /HPF (0-FEW) Laboratory Tests 01/27/17 17:45 Laboratory Tests 01/27/17 17:45 EKG EKG [] Radiology/Procedures Radiology/Procedures [] Course & Med Decision Making Course & Med Decision Making Pertinent Labs and Imaging studies reviewed. (See chart for details) [] Dragon Disclaimer Dragon Disclaimer This electronic medical record was generated, in whole or in part, using a voice recognition dictation system. Departure Departure Impression: Primary Impression: Pneumonia Additional Impression: Hypoxia Disposition: ADMITTED INPATIENT Admitting Physician: Jean Muñoz Condition: STABLE Referrals: UNKNOWN PCP NAME (PCP) Problem Qualifiers LILI CAMARILLO MD Jan 28, 2017 05:40
[2017-01-28 05:56] LABS: ALBUMIN 2.8 g/dL (3.4-5.0); ALBUMIN/GLOBULIN RATIO 0.7 (1.0-1.7); CALCIUM 7.2 mg/dL (8.5-10.1); CREATININE 0.8 mg/dL (0.6-1.0); GFR 78.3; POTASSIUM 4.3 mmol/L (3.5-5.1); TOTAL BILIRUBIN 0.3 mg/dL (0.2-1.0); TOTAL PROTEIN 6.6 g/dL (6.4-8.2)
[2017-01-28] MEDS: IPRATRPIUM/ALBUTEROL 0.5/2.5MG 3 ML NEBU. NEB SCH ×3 (07:42→19:36)
--- NOTE | 2017-01-28 09:24 | CONS ---
DATE OF CONSULTATION: ATTENDING PHYSICIAN: Dr. Armaan Degroot. REASON FOR CONSULTATION: Cough, history of PE. HISTORY OF PRESENT ILLNESS The patient is a 41-year-old who is obese and has history of tobacco use for 20 years and still smokes. She presented to the hospital complaining of some shortness of breath and mild cough. She had diffuse myalgias. She also had some nausea, vomiting and dysuria. The patient has history of questionable PE, diagnosed in 07/2016. CT angiogram at that time showed motion artifact versus a small PE. Her chest x-ray during this hospitalization was reviewed. No definite consolidation seen. There may be a mild retrocardiac infiltrate seen in the left lower lobe. She is requiring 3 liters of oxygen. Normally, she does not wear oxygen. I have been asked to see her for further evaluation. PAST MEDICAL HISTORY: History of asthma, history of depression, history of PE, pneumonia, history of methadone program for opioid addiction. PAST SURGICAL HISTORY: Hysterectomy, tubal ligation, umbilical hernia, bladder sling. ALLERGIES: None. MEDICATIONS: Reviewed as listed in the MRAD. REVIEW OF SYSTEMS: Twelve-point system obtained. Pertinent positives discussed in my history of present illness, otherwise noncontributory. All systems that were negative were reviewed as well. SOCIAL HISTORY: Smoked for 20 years and still smokes cigarettes. PHYSICAL EXAMINATION: VITAL SIGNS: T-max of 99.5. Blood pressure stable, pulse ox 93% on 2 liters. HEENT: Sclerae nonicteric. NECK: Supple. LUNGS: Clear. CARDIOVASCULAR: Regular rate and rhythm. ABDOMEN: Soft, nontender. EXTREMITIES: With no pitting edema. LABORATORY DATA: Reviewed. White cell count hemoglobin 13.5, platelets are 198. IMPRESSION: 1. Dyspnea with cough, most likely secondary to acute exacerbation of chronic obstructive pulmonary disease and possible mild left lower lobe pneumonia. 2. History of questionable pulmonary embolism in July of this year, has been on Xarelto since then. A followup CT angiogram this month showed no definite pulmonary embolism. We will resume her home Xarelto. 3. Ongoing tobacco consumption. RECOMMENDATIONS: 1. Continue with DuoNeb. 2. Wean off oxygen. 3. Resume Xarelto. 4. Continue antibiotics. 5. Hopefully discharge in 24 hours. COSMO NEWBERRY MD DR: Homero JOB#: [id number] / [id number]
--- NOTE | 2017-01-28 11:36 | RAD ---
PA AND LATERAL CHEST RADIOGRAPH Clinical Indication: SOA. Cough and chest pain x1 day Comparison: AP chest 01/07/2017. Findings: The cardiomediastinal silhouette is normal. Pulmonary vasculature is normal. There is left lower lobe airspace disease. Minimal right basilar atelectasis. No pleural effusion or pneumothorax is seen. There is no acute bone abnormality. IMPRESSION: Left lower lobe airspace disease. Pneumonia, atelectasis, or aspiration are considerations.
[2017-01-28 11:40] LABS: NEGATIVE OBC STREP NEG; POSITIVE OBC STREP POS
[2017-01-28] MEDS: LACTOBACILLUS RHAMNOSUS GG 1 CAPSULE. PO SCH ×2 (12:42→20:18)
[2017-01-28] MEDS: ACETAMINOPHEN 325 MG TABLET. PO PRN (12:46)
[2017-01-28] MEDS: METHADONE PO SCH (14:26)
[2017-01-28] MEDS: clonazePAM 1 MG TABLET PO SCH ×2 (14:27→20:18)
[2017-01-28] MEDS: CITALOPRAM 20 MG TABLET. PO SCH (14:27)
--- NOTE | 2017-01-28 14:45 | PDOC1 ---
History and Physical Date of Admission Date of Admission 01/27/2017 Identification/Chief Complaint Chief Complaint Fatigue Problems: (1) Pneumonia (2) Hypoxia (3) Sepsis (4) COPD exacerbation Source Source: Patient History of Present Illness History of Present Illness 41yo F hx COPD/Asthma, PE in 2017, anxiety, depression, HTN, and opioid dependency on methadone here for 3-4 days history of fatigue. Patient states her major symptom was fatigue, no energy or appetite, fever, and chills. Very minimal cough with scant production. No sick contacts. Denies any wheezing or shortness of breath. Patient also denies any upper respiration symptoms including runny nose, congestion. She has been taking her medications as prescribed. Also some mild nausea and dysuria. Past Medical History Cardiovascular: HTN Pulmonary: Asthma, COPD Psych: Anxiety, Addictions, Depression Rheumatologic: No pertinent hx Renal/: No pertinent hx Endocrine: No pertinent hx Past Surgical History Past Surgical History: Hernia Repair, Hysterectomy, Other Family History Family History: Hypertension Social History Smoke: <1 pack per day ALCOHOL: none Drugs: Other Current Medications Current Medications Current Medications Medications (Trade) Dose Ordered Sig/Georgette Start Time Stop Time Status Last Admin Dose Admin Acetaminophen (Tylenol) 650 mg PRN Q4HRS PRN 01/27/17 21:30 01/28/17 21:29 01/28/17 12:46 650 MG Albuterol/ Ipratropium (Duoneb) 3 ml RTQID 01/28/17 08:00 01/29/17 07:59 01/28/17 11:37 3 ML Azithromycin 250 ml @ 250 mls/hr 1X ONCE 01/27/17 19:00 01/27/17 19:59 DC 01/27/17 19:26 250 MLS/HR Ceftriaxone Sodium 1 gm/ Dextrose 50 ml @ 100 mls/hr Q24H 01/28/17 09:00 UNV Ceftriaxone Sodium (Rocephin) 1 gm Q24H 01/28/17 17:00 Citalopram Hydrobromide (CeleXA) 40 mg DAILY 01/28/17 14:30 Clonazepam (KlonoPIN) 1 mg BID 01/28/17 14:00 Ketorolac Tromethamine (Toradol) 15 mg 1X ONCE 01/27/17 19:00 01/27/17 19:01 DC 01/27/17 19:06 15 MG Lactobacillus Rhamnosus (Culturelle) 1 cap BID 01/28/17 09:00 01/28/17 12:42 1 CAP Methadone HCl (Dolophine) 100 mg DAILY 01/29/17 09:00 UNV Non-Formulary Medication 1 ea DAILY 01/28/17 15:00 Ondansetron HCl (Zofran) 4 mg PRN Q8HRS PRN 01/27/17 21:30 01/28/17 21:29 Ringer's Solution 1,000 ml @ 155 mls/hr Q6H28M 01/27/17 23:30 01/28/17 09:04 155 MLS/HR Rivaroxaban (Xarelto) 20 mg DAILYWSUP 01/28/17 17:00 Sodium Chloride 1,000 ml @ 1,000 mls/hr 1X ONCE 01/27/17 21:30 01/27/17 22:29 DC 01/27/17 21:18 1,000 MLS/HR Allergies Allergies Allergies Coded Allergies Type Severity Reaction Last Updated Verified No Known Drug Allergies 01/19/13 No ROS Review of System CONSTITUTIONAL: +fever or chills EYES: No recent changes SKIN: No rash or itching CARDIOVASCULAR: No chest pain, syncope, palpitations, or edema RESPIRATORY: Minimal SOB or cough GASTROINTESTINAL: No nausea, vomiting or abdominal pain NEUROLOGICAL: No headaches or weakness ENDOCRINE: No cold or heat intolerance GENITOURINARY: No urgency or frequency of urination MUSCULOSKELETAL: No back pain or joint pain LYMPHATICS: No enlarged lymph nodes PSYCHIATRIC: No anxiety or depression Physical Exam Physical Exam GEN.: No apparent distress. Alert and oriented. HEENT: Head is normocephalic, atraumatic NECK: Supple. LUNGS: Clear to auscultation. Decreased and diminished breath sounds in lower lungs, no wheezing HEART: RRR, S1, S2 present. Peripheral pulses intact ABDOMEN: Soft, nontender. Positive bowel sounds. EXTREMITIES: Without any cyanosis. NEUROLOGIC: Normal speech, normal tone PSYCHIATRIC: Normal affect, normal mood. SKIN: No ulcerations Vitals Vitals Vital Signs Date Time Temp Pulse Resp B/P (MAP) Pulse Ox O2 Delivery O2 Flow Rate FiO2 01/28/17 11:40 97 Nasal Cannula 2.0 01/28/17 10:43 97.7 70 17 108/72 (84) 97.7 Labs Labs Laboratory Tests Test 01/27/17 17:45 01/27/17 17:52 01/27/17 17:57 01/27/17 20:02 White Blood Count 15.2 x10^3/uL (4.0-11.0) Red Blood Count 5.21 x10^6/uL (3.50-5.40) Hemoglobin 14.8 g/dL (12.0-15.5) Hematocrit 44.7 % (36.0-47.0) Mean Corpuscular Volume 86 fL (79-100) Mean Corpuscular Hemoglobin 28 pg (25-35) Mean Corpuscular Hemoglobin Concent 33 g/dL (31-37) Red Cell Distribution Width 14.3 % (11.5-14.5) Platelet Count 214 x10^3/uL (140-400) Neutrophils (%) (Auto) 88 % (31-73) Lymphocytes (%) (Auto) 8 % (24-48) Monocytes (%) (Auto) 2 % (0-9) Eosinophils (%) (Auto) 2 % (0-3) Basophils (%) (Auto) 1 % (0-3) Neutrophils # (Auto) 13.3 x10^3uL (1.8-7.7) Lymphocytes # (Auto) 1.2 x10^3/uL (1.0-4.8) Monocytes # (Auto) 0.3 x10^3/uL (0.0-1.1) Eosinophils # (Auto) 0.2 x10^3/uL (0.0-0.7) Basophils # (Auto) 0.1 x10^3/uL (0.0-0.2) Segmented Neutrophils % 68 % (35-66) Band Neutrophils % 19 % (0-9) Lymphocytes % 9 % (24-48) Monocytes % 3 % (0-10) Eosinophils % 1 % (0-5) Platelet Estimate Adequate (ADEQUATE) Sodium Level 141 mmol/L (136-145) Potassium Level 3.9 mmol/L (3.5-5.1) Chloride Level 102 mmol/L (98-107) Carbon Dioxide Level 30 mmol/L (21-32) Anion Gap 9 (6-14) Blood Urea Nitrogen 6 mg/dL (7-20) Creatinine 0.8 mg/dL (0.6-1.0) Estimated GFR (Cockcroft-Gault) 78.3 BUN/Creatinine Ratio 8 (6-20) Glucose Level 83 mg/dL (70-99) Lactic Acid Level 2.2 mmol/L (0.4-2.0) Calcium Level 8.3 mg/dL (8.5-10.1) Total Bilirubin 0.3 mg/dL (0.2-1.0) Aspartate Amino Transf (AST/SGOT) 24 U/L (15-37) Alanine Aminotransferase (ALT/SGPT) 32 U/L (14-59) Alkaline Phosphatase 64 U/L (46-116) Total Protein 8.0 g/dL (6.4-8.2) Albumin 3.4 g/dL (3.4-5.0) Albumin/Globulin Ratio 0.7 (1.0-1.7) Procalcitonin < 0.10 ng/mL (0.00-0.10) Influenza Type A Antigen Negative (NEGATIVE) Influenza Type B Antigen Negative (NEGATIVE) Group A Streptococcus Rapid Negative (NEGATIVE) Urine Color Yellow Urine Clarity Clear Urine pH 5.5 Urine Specific [place] 1.015 Urine Protein Negative mg/dL (NEG-TRACE) Urine Glucose (UA) Negative mg/dL (NEG) Urine Ketones (Stick) Negative mg/dL (NEG) Urine Blood Negative (NEG) Urine Nitrite Negative (NEG) Urine Bilirubin Negative (NEG) Urine Urobilinogen Dipstick 0.2 mg/dL (0.2 mg/dL) Urine Leukocyte Esterase Negative (NEG) Urine RBC 0 /HPF (0-2) Urine WBC Occ /HPF (0-4) Urine Squamous Epithelial Cells Occ /LPF Urine Bacteria Few /HPF (0-FEW) Test 01/27/17 22:30 01/28/17 05:00 Lactic Acid Level 2.0 mmol/L (0.4-2.0) White Blood Count 18.4 x10^3/uL (4.0-11.0) Red Blood Count 4.79 x10^6/uL (3.50-5.40) Hemoglobin 13.5 g/dL (12.0-15.5) Hematocrit 41.9 % (36.0-47.0) Mean Corpuscular Volume 88 fL (79-100) Mean Corpuscular Hemoglobin 28 pg (25-35) Mean Corpuscular Hemoglobin Concent 32 g/dL (31-37) Red Cell Distribution Width 14.2 % (11.5-14.5) Platelet Count 198 x10^3/uL (140-400) Neutrophils (%) (Auto) 88 % (31-73) Lymphocytes (%) (Auto) 7 % (24-48) Monocytes (%) (Auto) 3 % (0-9) Eosinophils (%) (Auto) 1 % (0-3) Basophils (%) (Auto) 1 % (0-3) Neutrophils # (Auto) 16.2 x10^3uL (1.8-7.7) Lymphocytes # (Auto) 1.3 x10^3/uL (1.0-4.8) Monocytes # (Auto) 0.6 x10^3/uL (0.0-1.1) Eosinophils # (Auto) 0.2 x10^3/uL (0.0-0.7) Basophils # (Auto) 0.1 x10^3/uL (0.0-0.2) Sodium Level 141 mmol/L (136-145) Potassium Level 4.3 mmol/L (3.5-5.1) Chloride Level 105 mmol/L (98-107) Carbon Dioxide Level 26 mmol/L (21-32) Anion Gap 10 (6-14) Blood Urea Nitrogen 7 mg/dL (7-20) Creatinine 0.8 mg/dL (0.6-1.0) Estimated GFR (Cockcroft-Gault) 78.3 BUN/Creatinine Ratio 9 (6-20) Glucose Level 64 mg/dL (70-99) Calcium Level 7.2 mg/dL (8.5-10.1) Total Bilirubin 0.3 mg/dL (0.2-1.0) Aspartate Amino Transf (AST/SGOT) 24 U/L (15-37) Alanine Aminotransferase (ALT/SGPT) 24 U/L (14-59) Alkaline Phosphatase 53 U/L (46-116) Total Protein 6.6 g/dL (6.4-8.2) Albumin 2.8 g/dL (3.4-5.0) Albumin/Globulin Ratio 0.7 (1.0-1.7) Laboratory Tests Test 12/22/17 17:45 01/27/17 17:52 01/27/17 17:57 01/27/17 20:02 White Blood Count 15.2 x10^3/uL (4.0-11.0) Red Blood Count 5.21 x10^6/uL (3.50-5.40) Hemoglobin 14.8 g/dL (12.0-15.5) Hematocrit 44.7 % (36.0-47.0) Mean Corpuscular Volume 86 fL (79-100) Mean Corpuscular Hemoglobin 28 pg (25-35) Mean Corpuscular Hemoglobin Concent 33 g/dL (31-37) Red Cell Distribution Width 14.3 % (11.5-14.5) Platelet Count 214 x10^3/uL (140-400) Neutrophils (%) (Auto) 88 % (31-73) Lymphocytes (%) (Auto) 8 % (24-48) Monocytes (%) (Auto) 2 % (0-9) Eosinophils (%) (Auto) 2 % (0-3) Basophils (%) (Auto) 1 % (0-3) Neutrophils # (Auto) 13.3 x10^3uL (1.8-7.7) Lymphocytes # (Auto) 1.2 x10^3/uL (1.0-4.8) Monocytes # (Auto) 0.3 x10^3/uL (0.0-1.1) Eosinophils # (Auto) 0.2 x10^3/uL (0.0-0.7) Basophils # (Auto) 0.1 x10^3/uL (0.0-0.2) Segmented Neutrophils % 68 % (35-66) Band Neutrophils % 19 % (0-9) Lymphocytes % 9 % (24-48) Monocytes % 3 % (0-10) Eosinophils % 1 % (0-5) Platelet Estimate Adequate (ADEQUATE) Sodium Level 141 mmol/L (136-145) Potassium Level 3.9 mmol/L (3.5-5.1) Chloride Level 102 mmol/L (98-107) Carbon Dioxide Level 30 mmol/L (21-32) Anion Gap 9 (6-14) Blood Urea Nitrogen 6 mg/dL (7-20) Creatinine 0.8 mg/dL (0.6-1.0) Estimated GFR (Cockcroft-Gault) 78.3 BUN/Creatinine Ratio 8 (6-20) Glucose Level 83 mg/dL (70-99) Lactic Acid Level 2.2 mmol/L (0.4-2.0) Calcium Level 8.3 mg/dL (8.5-10.1) Total Bilirubin 0.3 mg/dL (0.2-1.0) Aspartate Amino Transf (AST/SGOT) 24 U/L (15-37) Alanine Aminotransferase (ALT/SGPT) 32 U/L (14-59) Alkaline Phosphatase 64 U/L (46-116) Total Protein 8.0 g/dL (6.4-8.2) Albumin 3.4 g/dL (3.4-5.0) Albumin/Globulin Ratio 0.7 (1.0-1.7) Procalcitonin < 0.10 ng/mL (0.00-0.10) Influenza Type A Antigen Negative (NEGATIVE) Influenza Type B Antigen Negative (NEGATIVE) Group A Streptococcus Rapid Negative (NEGATIVE) Urine Color Yellow Urine Clarity Clear Urine pH 5.5 Urine Specific [place] 1.015 Urine Protein Negative mg/dL (NEG-TRACE) Urine Glucose (UA) Negative mg/dL (NEG) Urine Ketones (Stick) Negative mg/dL (NEG) Urine Blood Negative (NEG) Urine Nitrite Negative (NEG) Urine Bilirubin Negative (NEG) Urine Urobilinogen Dipstick 0.2 mg/dL (0.2 mg/dL) Urine Leukocyte Esterase Negative (NEG) Urine RBC 0 /HPF (0-2) Urine WBC Occ /HPF (0-4) Urine Squamous Epithelial Cells Occ /LPF Urine Bacteria Few /HPF (0-FEW) Test 01/27/17 22:30 01/28/17 05:00 Lactic Acid Level 2.0 mmol/L (0.4-2.0) White Blood Count 18.4 x10^3/uL (4.0-11.0) Red Blood Count 4.79 x10^6/uL (3.50-5.40) Hemoglobin 13.5 g/dL (12.0-15.5) Hematocrit 41.9 % (36.0-47.0) Mean Corpuscular Volume 88 fL (79-100) Mean Corpuscular Hemoglobin 28 pg (25-35) Mean Corpuscular Hemoglobin Concent 32 g/dL (31-37) Red Cell Distribution Width 14.2 % (11.5-14.5) Platelet Count 198 x10^3/uL (140-400) Neutrophils (%) (Auto) 88 % (31-73) Lymphocytes (%) (Auto) 7 % (24-48) Monocytes (%) (Auto) 3 % (0-9) Eosinophils (%) (Auto) 1 % (0-3) Basophils (%) (Auto) 1 % (0-3) Neutrophils # (Auto) 16.2 x10^3uL (1.8-7.7) Lymphocytes # (Auto) 1.3 x10^3/uL (1.0-4.8) Monocytes # (Auto) 0.6 x10^3/uL (0.0-1.1) Eosinophils # (Auto) 0.2 x10^3/uL (0.0-0.7) Basophils # (Auto) 0.1 x10^3/uL (0.0-0.2) Sodium Level 141 mmol/L (136-145) Potassium Level 4.3 mmol/L (3.5-5.1) Chloride Level 105 mmol/L (98-107) Carbon Dioxide Level 26 mmol/L (21-32) Anion Gap 10 (6-14) Blood Urea Nitrogen 7 mg/dL (7-20) Creatinine 0.8 mg/dL (0.6-1.0) Estimated GFR (Cockcroft-Gault) 78.3 BUN/Creatinine Ratio 9 (6-20) Glucose Level 64 mg/dL (70-99) Calcium Level 7.2 mg/dL (8.5-10.1) Total Bilirubin 0.3 mg/dL (0.2-1.0) Aspartate Amino Transf (AST/SGOT) 24 U/L (15-37) Alanine Aminotransferase (ALT/SGPT) 24 U/L (14-59) Alkaline Phosphatase 53 U/L (46-116) Total Protein 6.6 g/dL (6.4-8.2) Albumin 2.8 g/dL (3.4-5.0) Albumin/Globulin Ratio 0.7 (1.0-1.7) VTE Prophylaxis Ordered VTE Prophylaxis Devices: Yes VTE Pharmacological Prophylaxi: Yes Assessment/Plan Assessment/Plan 41yo F hx COPD/asthma, anxiety, depression, HTN, opioid dependency on methadone here for fever and fatigue and admitted for severe sepsis due to pneumonia. 1. Severe sepsis: improving/responsive to 3L NS bolus upon presentation, cont MIVF for now, source is CAP. Worsening leukocytosis noted 2. CAP: ceftriaxone/azithromycin. Pulm consulted by ED. Cont CAP coverage with Ceftriaxone w/o atypical coverage per Pulm 3. Hypoxia: cont oxygen, currently on 2L NC, due to CAP and mild acute on chronic COPD/asthma 4. COPD/asthma: acute on chronic, duonebs q4 hrs 5. HTN: hold anti-hypertensives 6. Depression/anxiety: restart citalopram and clonazepam 7. Opioid dependency: pt to take home dose of Methadone, 100mg qday 8. Hx of PE: cont xarelto FEN: MIVF to 1/2 MIVF today, replete lytes, reg diet PPx: xarelto Dispo: cont inpt care, anticipate dc tomorrow if continues to improve KATARZYNA PERDOMO MD Jan 28, 2017 14:44
[2017-01-28] MEDS ORDERED: RIVAROXABAN 10 MG TABLET. PO SCH (17:00)
[2017-01-28] MEDS ORDERED: cefTRIAXone IV Push 1 GM VIAL. IVP SCH (17:00)
[2017-01-29] MEDS ORDERED: ACETAMINOPHEN 325 MG TABLET. PO PRN
[2017-01-29] MEDS ORDERED: ONDANSETRON ODT 4 MG TAB.RAPDIS. PO PRN
[2017-01-29 03:42] VITALS: BP 143/85
[2017-01-29] MEDS: IV RINGERS,LACTATED 1000ML 1,000 ML IV SCH (05:34)
[2017-01-29 06:43] LABS: BASO % 0 % (0-3); EOS % 7 % (0-3); HEMATOCRIT 37.7 % (36.0-47.0); HEMOGLOBIN 12.4 g/dL (12.0-15.5); LYMPH # 2.4 x10^3/uL (1.0-4.8); LYMPH % 28 % (24-48); MEAN CORPUSCULAR HEMOGLOBIN 28 pg (25-35); MEAN CORPUSCULAR HGB CONC 33 g/dL (31-37); MEAN CORPUSCULAR VOLUME 86 fL (79-100); MONO % 6 % (0-9); NEUT % 60 % (31-73); PLATELET COUNT 189 x10^3/uL (140-400); RED CELL DISTRIBUTION WIDTH 14.3 % (11.5-14.5); WHITE BLOOD COUNT 8.5 x10^3/uL (4.0-11.0)
[2017-01-29 07:00] VITALS: BP 124/87
[2017-01-29] MEDS ORDERED: ANTI-COAG MONITOR BY PHARMACY. MC PRN (07:45)
[2017-01-29] MEDS: LACTOBACILLUS RHAMNOSUS GG 1 CAPSULE. PO SCH (08:37)
[2017-01-29] MEDS: CITALOPRAM 20 MG TABLET. PO SCH (08:37)
[2017-01-29] MEDS: METHADONE PO SCH (08:38)
[2017-01-29] MEDS: clonazePAM 1 MG TABLET PO SCH (08:38)
[2017-01-29] MEDS ORDERED: METHADONE 10 MG TABLET. PO SCH (09:00)
--- NOTE | 2017-01-29 10:25 | PDOC ---
PULMONARY PROGRESS NOTES Subjective FEELS BETTER NO SOA Vitals Vital Signs Date Time Temp Pulse Resp B/P (MAP) Pulse Ox O2 Delivery O2 Flow Rate FiO2 01/29/17 08:00 Room Air 01/29/17 07:00 97.7 61 18 124/87 (99) 92 97.7 01/29/17 03:42 2.0 General: Alert, No acute distress Lungs: Clear Cardiovascular: S1 Abdomen: Soft Neuro Exam: Alert Extremities: No Edema Skin: Warm Labs Laboratory Tests Test 01/27/17 17:45 01/27/17 17:52 01/27/17 17:57 01/27/17 20:02 White Blood Count 15.2 x10^3/uL (4.0-11.0) Red Blood Count 5.21 x10^6/uL (3.50-5.40) Hemoglobin 14.8 g/dL (12.0-15.5) Hematocrit 44.7 % (36.0-47.0) Mean Corpuscular Volume 86 fL (79-100) Mean Corpuscular Hemoglobin 28 pg (25-35) Mean Corpuscular Hemoglobin Concent 33 g/dL (31-37) Red Cell Distribution Width 14.3 % (11.5-14.5) Platelet Count 214 x10^3/uL (140-400) Neutrophils (%) (Auto) 88 % (31-73) Lymphocytes (%) (Auto) 8 % (24-48) Monocytes (%) (Auto) 2 % (0-9) Eosinophils (%) (Auto) 2 % (0-3) Basophils (%) (Auto) 1 % (0-3) Neutrophils # (Auto) 13.3 x10^3uL (1.8-7.7) Lymphocytes # (Auto) 1.2 x10^3/uL (1.0-4.8) Monocytes # (Auto) 0.3 x10^3/uL (0.0-1.1) Eosinophils # (Auto) 0.2 x10^3/uL (0.0-0.7) Basophils # (Auto) 0.1 x10^3/uL (0.0-0.2) Segmented Neutrophils % 68 % (35-66) Band Neutrophils % 19 % (0-9) Lymphocytes % 9 % (24-48) Monocytes % 3 % (0-10) Eosinophils % 1 % (0-5) Platelet Estimate Adequate (ADEQUATE) Sodium Level 141 mmol/L (136-145) Potassium Level 3.9 mmol/L (3.5-5.1) Chloride Level 102 mmol/L (98-107) Carbon Dioxide Level 30 mmol/L (21-32) Anion Gap 9 (6-14) Blood Urea Nitrogen 6 mg/dL (7-20) Creatinine 0.8 mg/dL (0.6-1.0) Estimated GFR (Cockcroft-Gault) 78.3 BUN/Creatinine Ratio 8 (6-20) Glucose Level 83 mg/dL (70-99) Lactic Acid Level 2.2 mmol/L (0.4-2.0) Calcium Level 8.3 mg/dL (8.5-10.1) Total Bilirubin 0.3 mg/dL (0.2-1.0) Aspartate Amino Transf (AST/SGOT) 24 U/L (15-37) Alanine Aminotransferase (ALT/SGPT) 32 U/L (14-59) Alkaline Phosphatase 64 U/L (46-116) Total Protein 8.0 g/dL (6.4-8.2) Albumin 3.4 g/dL (3.4-5.0) Albumin/Globulin Ratio 0.7 (1.0-1.7) Procalcitonin < 0.10 ng/mL (0.00-0.10) Influenza Type A Antigen Negative (NEGATIVE) Influenza Type B Antigen Negative (NEGATIVE) Group A Streptococcus Rapid Negative (NEGATIVE) Urine Color Yellow Urine Clarity Clear Urine pH 5.5 Urine Specific [place] 1.015 Urine Protein Negative mg/dL (NEG-TRACE) Urine Glucose (UA) Negative mg/dL (NEG) Urine Ketones (Stick) Negative mg/dL (NEG) Urine Blood Negative (NEG) Urine Nitrite Negative (NEG) Urine Bilirubin Negative (NEG) Urine Urobilinogen Dipstick 0.2 mg/dL (0.2 mg/dL) Urine Leukocyte Esterase Negative (NEG) Urine RBC 0 /HPF (0-2) Urine WBC Occ /HPF (0-4) Urine Squamous Epithelial Cells Occ /LPF Urine Bacteria Few /HPF (0-FEW) Test 01/27/17 22:30 01/28/17 05:00 01/29/17 05:40 Lactic Acid Level 2.0 mmol/L (0.4-2.0) White Blood Count 18.4 x10^3/uL (4.0-11.0) 8.5 x10^3/uL (4.0-11.0) Red Blood Count 4.79 x10^6/uL (3.50-5.40) 4.40 x10^6/uL (3.50-5.40) Hemoglobin 13.5 g/dL (12.0-15.5) 12.4 g/dL (12.0-15.5) Hematocrit 41.9 % (36.0-47.0) 37.7 % (36.0-47.0) Mean Corpuscular Volume 88 fL (79-100) 86 fL (79-100) Mean Corpuscular Hemoglobin 28 pg (25-35) 28 pg (25-35) Mean Corpuscular Hemoglobin Concent 32 g/dL (31-37) 33 g/dL (31-37) Red Cell Distribution Width 14.2 % (11.5-14.5) 14.3 % (11.5-14.5) Platelet Count 198 x10^3/uL (140-400) 189 x10^3/uL (140-400) Neutrophils (%) (Auto) 88 % (31-73) 60 % (31-73) Lymphocytes (%) (Auto) 7 % (24-48) 28 % (24-48) Monocytes (%) (Auto) 3 % (0-9) 6 % (0-9) Eosinophils (%) (Auto) 1 % (0-3) 7 % (0-3) Basophils (%) (Auto) 1 % (0-3) 0 % (0-3) Neutrophils # (Auto) 16.2 x10^3uL (1.8-7.7) 5.1 x10^3uL (1.8-7.7) Lymphocytes # (Auto) 1.3 x10^3/uL (1.0-4.8) 2.4 x10^3/uL (1.0-4.8) Monocytes # (Auto) 0.6 x10^3/uL (0.0-1.1) 0.5 x10^3/uL (0.0-1.1) Eosinophils # (Auto) 0.2 x10^3/uL (0.0-0.7) 0.6 x10^3/uL (0.0-0.7) Basophils # (Auto) 0.1 x10^3/uL (0.0-0.2) 0.0 x10^3/uL (0.0-0.2) Sodium Level 141 mmol/L (136-145) Potassium Level 4.3 mmol/L (3.5-5.1) Chloride Level 105 mmol/L (98-107) Carbon Dioxide Level 26 mmol/L (21-32) Anion Gap 10 (6-14) Blood Urea Nitrogen 7 mg/dL (7-20) Creatinine 0.8 mg/dL (0.6-1.0) Estimated GFR (Cockcroft-Gault) 78.3 BUN/Creatinine Ratio 9 (6-20) Glucose Level 64 mg/dL (70-99) Calcium Level 7.2 mg/dL (8.5-10.1) Total Bilirubin 0.3 mg/dL (0.2-1.0) Aspartate Amino Transf (AST/SGOT) 24 U/L (15-37) Alanine Aminotransferase (ALT/SGPT) 24 U/L (14-59) Alkaline Phosphatase 53 U/L (46-116) Total Protein 6.6 g/dL (6.4-8.2) Albumin 2.8 g/dL (3.4-5.0) Albumin/Globulin Ratio 0.7 (1.0-1.7) Laboratory Tests Test 01/29/17 05:40 White Blood Count 8.5 x10^3/uL (4.0-11.0) Red Blood Count 4.40 x10^6/uL (3.50-5.40) Hemoglobin 12.4 g/dL (12.0-15.5) Hematocrit 37.7 % (36.0-47.0) Mean Corpuscular Volume 86 fL (79-100) Mean Corpuscular Hemoglobin 28 pg (25-35) Mean Corpuscular Hemoglobin Concent 33 g/dL (31-37) Red Cell Distribution Width 14.3 % (11.5-14.5) Platelet Count 189 x10^3/uL (140-400) Neutrophils (%) (Auto) 60 % (31-73) Lymphocytes (%) (Auto) 28 % (24-48) Monocytes (%) (Auto) 6 % (0-9) Eosinophils (%) (Auto) 7 % (0-3) Basophils (%) (Auto) 0 % (0-3) Neutrophils # (Auto) 5.1 x10^3uL (1.8-7.7) Lymphocytes # (Auto) 2.4 x10^3/uL (1.0-4.8) Monocytes # (Auto) 0.5 x10^3/uL (0.0-1.1) Eosinophils # (Auto) 0.6 x10^3/uL (0.0-0.7) Basophils # (Auto) 0.0 x10^3/uL (0.0-0.2) Medications Active Scripts Medications Dose Route/Sig Max Daily Dose Days Date Category Xarelto (Rivaroxaban) 20 Mg Tablet 20 Mg PO DAILY 01/27/17 Reported Duoneb 0.5-3(2.5) Mg/3 Ml (Albuterol/Ipratropium) 3 Ml Ampul.neb 3 Ml NEB QID 60 01/09/17 Rx Doxycycline Hyclate 100 Mg Capsule 1 Cap PO BID 01/09/17 Rx Proair Hfa Inhaler (Albuterol Sulfate) 8.5 Gm Hfa.aer.ad 1 Puff INH PRN Q4-6HRS PRN 07/18/16 Reported Methadone Hcl 10 Mg Tablet 100 Mg PO DAILY 07/18/16 Reported Celexa (Citalopram Hydrobromide) 40 Mg Tablet 40 Mg PO DAILY 07/18/16 Reported Klonopin (Clonazepam) 1 Mg Tablet 1 Mg PO BID 07/18/16 Reported Impression . . Dyspnea with cough, most likely secondary to acute exacerbation of chronic obstructive pulmonary disease and possible mild left lower lobe pneumonia. 2. History of questionable pulmonary embolism in July of this year, has been on Xarelto since then. A followup CT angiogram this month showed no definite pulmonary embolism. Tiny nodule 8mm RUL We will resume her home Xarelto. 3. Ongoing tobacco consumption. 4. Tiny nodule 8mm RUL. needs f/u ct in 4-6 months with PCP Plan . 1. Continue with DuoNeb. 2. Wean off oxygen. 3. Xarelto. 4. Continue antibiotics. 5. discharge today 6. F/u out patient ct chest in 4-6 months with PCP to r/o any further increase in nodule COSMO NEWBERRY MD Jan 29, 2017 10:24
[2017-01-29 11:06] VITALS: BP 143/93
[2017-01-29] MEDS ORDERED: LEVO750T5 PO (13:11)
--- NOTE | 2017-01-29 14:19 | PDOC ---
PROGRESS NOTES Subjective Subjective Patient doing well, minimal cough, no fever, feeling much better, wanting to go home. ROS: Gen: denies any fever or chills, minimal fatigue HEENT: no runny nose or congestion Card: denies palpitation Pulm: minimal cough GI: no diarrhea or constipation : no dysuria or urine freq Objective Objective Vital Signs Date Time Temp Pulse Resp B/P (MAP) Pulse Ox O2 Delivery O2 Flow Rate FiO2 01/29/17 11:06 97.7 71 18 143/93 (110) 90 Nasal Cannula 2.0 97.7 Intake and Output 01/29/17 07:00 Intake Total 660 ml Balance 660 ml Intake Oral 660 ml # Voids 3 Plan Plan of Care 41yo F hx COPD/asthma, anxiety, depression, HTN, opioid dependency on methadone here for fever and fatigue and admitted for severe sepsis due to pneumonia. 1. Severe sepsis: improving/responsive to 3L NS bolus upon presentation, source is CAP. Improved leukocytosis noted 2. CAP: ceftriaxone/azithromycin. Pulm consulted by ED. Cont CAP coverage with Ceftriaxone w/o atypical coverage per Pulm 3. Hypoxia: cont oxygen, currently on room air, due to CAP and mild acute on chronic COPD/asthma 4. COPD/asthma: acute on chronic, duonebs q4 hrs 5. HTN: hold anti-hypertensives 6. Depression/anxiety: restart citalopram and clonazepam 7. Opioid dependency: pt to take home dose of Methadone, 100mg qday 8. Hx of PE: cont xarelto FEN: dc ivf, replete lytes, reg diet PPx: xarelto Dispo: cont inpt care, anticipate dc today Comment Review of Relevant I have reviewed the following items saad (where applicable) has been applied. Labs Laboratory Tests Test 01/27/17 17:45 01/27/17 17:52 01/27/17 17:57 01/27/17 20:02 White Blood Count 15.2 x10^3/uL (4.0-11.0) Red Blood Count 5.21 x10^6/uL (3.50-5.40) Hemoglobin 14.8 g/dL (12.0-15.5) Hematocrit 44.7 % (36.0-47.0) Mean Corpuscular Volume 86 fL (79-100) Mean Corpuscular Hemoglobin 28 pg (25-35) Mean Corpuscular Hemoglobin Concent 33 g/dL (31-37) Red Cell Distribution Width 14.3 % (11.5-14.5) Platelet Count 214 x10^3/uL (140-400) Neutrophils (%) (Auto) 88 % (31-73) Lymphocytes (%) (Auto) 8 % (24-48) Monocytes (%) (Auto) 2 % (0-9) Eosinophils (%) (Auto) 2 % (0-3) Basophils (%) (Auto) 1 % (0-3) Neutrophils # (Auto) 13.3 x10^3uL (1.8-7.7) Lymphocytes # (Auto) 1.2 x10^3/uL (1.0-4.8) Monocytes # (Auto) 0.3 x10^3/uL (0.0-1.1) Eosinophils # (Auto) 0.2 x10^3/uL (0.0-0.7) Basophils # (Auto) 0.1 x10^3/uL (0.0-0.2) Segmented Neutrophils % 68 % (35-66) Band Neutrophils % 19 % (0-9) Lymphocytes % 9 % (24-48) Monocytes % 3 % (0-10) Eosinophils % 1 % (0-5) Platelet Estimate Adequate (ADEQUATE) Sodium Level 141 mmol/L (136-145) Potassium Level 3.9 mmol/L (3.5-5.1) Chloride Level 102 mmol/L (98-107) Carbon Dioxide Level 30 mmol/L (21-32) Anion Gap 9 (6-14) Blood Urea Nitrogen 6 mg/dL (7-20) Creatinine 0.8 mg/dL (0.6-1.0) Estimated GFR (Cockcroft-Gault) 78.3 BUN/Creatinine Ratio 8 (6-20) Glucose Level 83 mg/dL (70-99) Lactic Acid Level 2.2 mmol/L (0.4-2.0) Calcium Level 8.3 mg/dL (8.5-10.1) Total Bilirubin 0.3 mg/dL (0.2-1.0) Aspartate Amino Transf (AST/SGOT) 24 U/L (15-37) Alanine Aminotransferase (ALT/SGPT) 32 U/L (14-59) Alkaline Phosphatase 64 U/L (46-116) Total Protein 8.0 g/dL (6.4-8.2) Albumin 3.4 g/dL (3.4-5.0) Albumin/Globulin Ratio 0.7 (1.0-1.7) Procalcitonin < 0.10 ng/mL (0.00-0.10) Influenza Type A Antigen Negative (NEGATIVE) Influenza Type B Antigen Negative (NEGATIVE) Group A Streptococcus Rapid Negative (NEGATIVE) Urine Color Yellow Urine Clarity Clear Urine pH 5.5 Urine Specific [place] 1.015 Urine Protein Negative mg/dL (NEG-TRACE) Urine Glucose (UA) Negative mg/dL (NEG) Urine Ketones (Stick) Negative mg/dL (NEG) Urine Blood Negative (NEG) Urine Nitrite Negative (NEG) Urine Bilirubin Negative (NEG) Urine Urobilinogen Dipstick 0.2 mg/dL (0.2 mg/dL) Urine Leukocyte Esterase Negative (NEG) Urine RBC 0 /HPF (0-2) Urine WBC Occ /HPF (0-4) Urine Squamous Epithelial Cells Occ /LPF Urine Bacteria Few /HPF (0-FEW) Test 01/27/17 22:30 01/28/17 05:00 01/29/17 05:40 Lactic Acid Level 2.0 mmol/L (0.4-2.0) White Blood Count 18.4 x10^3/uL (4.0-11.0) 8.5 x10^3/uL (4.0-11.0) Red Blood Count 4.79 x10^6/uL (3.50-5.40) 4.40 x10^6/uL (3.50-5.40) Hemoglobin 13.5 g/dL (12.0-15.5) 12.4 g/dL (12.0-15.5) Hematocrit 41.9 % (36.0-47.0) 37.7 % (36.0-47.0) Mean Corpuscular Volume 88 fL (79-100) 86 fL (79-100) Mean Corpuscular Hemoglobin 28 pg (25-35) 28 pg (25-35) Mean Corpuscular Hemoglobin Concent 32 g/dL (31-37) 33 g/dL (31-37) Red Cell Distribution Width 14.2 % (11.5-14.5) 14.3 % (11.5-14.5) Platelet Count 198 x10^3/uL (140-400) 189 x10^3/uL (140-400) Neutrophils (%) (Auto) 88 % (31-73) 60 % (31-73) Lymphocytes (%) (Auto) 7 % (24-48) 28 % (24-48) Monocytes (%) (Auto) 3 % (0-9) 6 % (0-9) Eosinophils (%) (Auto) 1 % (0-3) 7 % (0-3) Basophils (%) (Auto) 1 % (0-3) 0 % (0-3) Neutrophils # (Auto) 16.2 x10^3uL (1.8-7.7) 5.1 x10^3uL (1.8-7.7) Lymphocytes # (Auto) 1.3 x10^3/uL (1.0-4.8) 2.4 x10^3/uL (1.0-4.8) Monocytes # (Auto) 0.6 x10^3/uL (0.0-1.1) 0.5 x10^3/uL (0.0-1.1) Eosinophils # (Auto) 0.2 x10^3/uL (0.0-0.7) 0.6 x10^3/uL (0.0-0.7) Basophils # (Auto) 0.1 x10^3/uL (0.0-0.2) 0.0 x10^3/uL (0.0-0.2) Sodium Level 141 mmol/L (136-145) Potassium Level 4.3 mmol/L (3.5-5.1) Chloride Level 105 mmol/L (98-107) Carbon Dioxide Level 26 mmol/L (21-32) Anion Gap 10 (6-14) Blood Urea Nitrogen 7 mg/dL (7-20) Creatinine 0.8 mg/dL (0.6-1.0) Estimated GFR (Cockcroft-Gault) 78.3 BUN/Creatinine Ratio 9 (6-20) Glucose Level 64 mg/dL (70-99) Calcium Level 7.2 mg/dL (8.5-10.1) Total Bilirubin 0.3 mg/dL (0.2-1.0) Aspartate Amino Transf (AST/SGOT) 24 U/L (15-37) Alanine Aminotransferase (ALT/SGPT) 24 U/L (14-59) Alkaline Phosphatase 53 U/L (46-116) Total Protein 6.6 g/dL (6.4-8.2) Albumin 2.8 g/dL (3.4-5.0) Albumin/Globulin Ratio 0.7 (1.0-1.7) Laboratory Tests Test 01/29/17 05:40 White Blood Count 8.5 x10^3/uL (4.0-11.0) Red Blood Count 4.40 x10^6/uL (3.50-5.40) Hemoglobin 12.4 g/dL (12.0-15.5) Hematocrit 37.7 % (36.0-47.0) Mean Corpuscular Volume 86 fL (79-100) Mean Corpuscular Hemoglobin 28 pg (25-35) Mean Corpuscular Hemoglobin Concent 33 g/dL (31-37) Red Cell Distribution Width 14.3 % (11.5-14.5) Platelet Count 189 x10^3/uL (140-400) Neutrophils (%) (Auto) 60 % (31-73) Lymphocytes (%) (Auto) 28 % (24-48) Monocytes (%) (Auto) 6 % (0-9) Eosinophils (%) (Auto) 7 % (0-3) Basophils (%) (Auto) 0 % (0-3) Neutrophils # (Auto) 5.1 x10^3uL (1.8-7.7) Lymphocytes # (Auto) 2.4 x10^3/uL (1.0-4.8) Monocytes # (Auto) 0.5 x10^3/uL (0.0-1.1) Eosinophils # (Auto) 0.6 x10^3/uL (0.0-0.7) Basophils # (Auto) 0.0 x10^3/uL (0.0-0.2) Microbiology 01/27/17 Blood Culture - Preliminary, Resulted NO GROWTH AFTER 1 DAY Medications Current Medications Azithromycin 250 ml @ 250 mls/hr 1X ONCE IV Last administered on 01/27/17t 19:26; Start 01/27/17 at 19:00; Stop 01/27/17 at 19:59; Status DC Ceftriaxone Sodium 50 ml @ 100 mls/hr 1X ONCE IV Last administered on 19:08; Start 01/27/17 at 19:00; Stop 01/27/17 at 19:29; Status DC Sodium Chloride 1,000 ml @ 1,000 mls/hr 1X ONCE IV Last administered on 01/27 19:05; Start 01/27/17 at 19:00; Stop 01/27/17 at 19:59; Status DC Ketorolac Tromethamine (Toradol) 15 mg 1X ONCE IV Last administered on 19:06; Start 01/27/17 at 19:00; Stop 01/27/17 at 19:01; Status DC Acetaminophen (Tylenol) 650 mg 1X ONCE PO Last administered on 01/27/17 19: 04; Start 01/27/17 at 19:00; Stop 01/27/17 at 19:01; Status DC Ondansetron HCl (Zofran) 4 mg 1X ONCE IV Last administered on 01/27/17 19:06 ; Start 01/27/17 at 19:00; Stop 01/27/17 at 19:01; Status DC Albuterol/ Ipratropium (Duoneb) 3 ml STK-MED ONCE .ROUTE ; Start 01/27/17 at 21 :02; Stop 01/27/17 at 21:03; Status DC Sodium Chloride 1,000 ml @ 1,000 mls/hr 1X ONCE IV Last administered on 01/27 21:18; Start 01/27/17 at 21:30; Stop 01/27/17 at 22:29; Status DC Sodium Chloride 1,000 ml @ 1,000 mls/hr 1X ONCE IV Last administered on 01/27 21:18; Start 01/27/17 at 21:30; Stop 01/27/17 at 22:29; Status DC Albuterol/ Ipratropium (Duoneb) 3 ml 1X ONCE NEB Last administered on 21:30; Start 01/27/17 at 21:30; Stop 01/27/17 at 21:31; Status DC Ondansetron HCl (Zofran) 4 mg PRN Q8HRS PRN IV NAUSEA/VOMITING; Start at 21:30; Stop 01/28/17 at 21:29; Status DC Acetaminophen (Tylenol) 650 mg PRN Q4HRS PRN PO FEVER Last administered on 12:46; Start 01/27/17 at 21:30; Stop 01/28/17 at 21:29; Status DC Albuterol/ Ipratropium (Duoneb) 3 ml RTQID NEB Last administered on 01/28/17 19:36; Start 01/28/17 at 08:00; Stop 01/29/17 at 07:59; Status DC Ringer's Solution 1,000 ml @ 80 mls/hr [id number] IV Last administered on 05:34; Start 01/27/17 at 23:30 Rivaroxaban (Xarelto) 20 mg DAILYWSUP PO Last administered on 01/28/17 16:25 ; Start 01/28/17 at 17:00 Ceftriaxone Sodium 1 gm/ Dextrose 50 ml @ 100 mls/hr Q24H IV ; Start 01/28/17 at 09:00; Status UNV Ceftriaxone Sodium (Rocephin) 1 gm Q24H IVP Last administered on 01/28/17 16: 22; Start 01/28/17 at 17:00 Lactobacillus Rhamnosus (Culturelle) 1 cap BID PO Last administered on 08:37; Start 01/28/17 at 09:00 Clonazepam (KlonoPIN) 1 mg BID PO Last administered on 01/29/17 08:38; Start 01/28/17 at 14:00 Methadone HCl (Dolophine) 100 mg DAILY PO ; Start 01/29/17 at 09:00; Status UNV Citalopram Hydrobromide (CeleXA) 40 mg DAILY PO Last administered on 08:37; Start 01/28/17 at 14:30 Non-Formulary Medication 1 ea DAILY PO Last administered on 01/29/17 08:38; Start 01/28/17 at 15:00 Acetaminophen (Tylenol) 650 mg PRN Q6HRS PRN PO FEVER > 100.5'F; Start at 00:00 Ondansetron HCl (Zofran Odt) 4 mg PRN Q6HRS PRN PO NAUSEA/VOMITING; Start at 00:00 Info (Anti-Coagulation Monitoring By Pharmacy) 1 each PRN DAILY PRN MC SEE COMMENTS Last administered on 01/29/17t 07:43; Start 01/29/17 at 07:45 Active Scripts Active Levofloxacin 750 Mg Tablet 1 Tab PO DAILY Duoneb 0.5-3(2.5) Mg/3 Ml (Albuterol/Ipratropium) 3 Ml Ampul.neb 3 Ml NEB QID 60 Days Reported Xarelto (Rivaroxaban) 20 Mg Tablet 20 Mg PO DAILY Proair Hfa Inhaler (Albuterol Sulfate) 8.5 Gm Hfa.aer.ad 1 Puff INH PRN Q4-6HRS PRN Methadone Hcl 10 Mg Tablet 100 Mg PO DAILY Celexa (Citalopram Hydrobromide) 40 Mg Tablet 40 Mg PO DAILY Klonopin (Clonazepam) 1 Mg Tablet 1 Mg PO BID Vitals/I & O Vital Sign - Last 24 Hours 01/28/17 01/28/17 01/28/17 01/28/17 15:50 15:57 19:27 19:38 Temp 97.7 97.6 97.7 97.6 Pulse 62 74 Resp 17 18 B/P (MAP) 113/78 (90) 124/77 (93) Pulse Ox 97 92 92 94 O2 Delivery Nasal Cannula Room Air Nasal Cannula Nasal Cannula O2 Flow Rate 2.0 2.0 2.0 01/28/17 01/28/17 01/29/17 01/29/17 20:00 23:40 03:42 07:00 Temp 97.7 97.3 97.7 97.7 97.3 97.7 Pulse 64 69 61 Resp 18 18 18 B/P (MAP) 126/79 (95) 143/85 (104) 124/87 (99) Pulse Ox 92 92 92 O2 Delivery Room Air Nasal Cannula Nasal Cannula Room Air O2 Flow Rate 2.0 2.0 01/29/17 01/29/17 08:00 11:06 Temp 97.7 97.7 Pulse 71 Resp 18 B/P (MAP) 143/93 (110) Pulse Ox 90 O2 Delivery Room Air Nasal Cannula O2 Flow Rate 2.0 Intake and Output 01/28/17 01/28/17 01/29/17 15:00 23:00 07:00 Intake Total 360 ml 300 ml Balance 360 ml 300 ml KATARZYNA PERDOMO MD Jan 29, 2017 14:19
== END 2017-01-29 14:00 | disposition home or self-care (01) | DRG 871 ==
LOC: ER 17:09 → 5 SOUTH 21:16
PROVIDERS: ADMIT Family Medicine; ATTEND Family Medicine
DX: A41.9 Sepsis, unspecified organism (principal); J18.9 Pneumonia, unspecified organism; F11.20 Opioid dependence, uncomplicated; J44.0 Chronic obstructive pulmonary disease with (acute) lower respiratory infection; J44.1 Chronic obstructive pulmonary disease with (acute) exacerbation; E66.9 Obesity, unspecified; F17.210 Nicotine dependence, cigarettes, uncomplicated; F32.9 Major depressive disorder, single episode, unspecified; F41.9 Anxiety disorder, unspecified; I10 Essential (primary) hypertension; R09.02 Hypoxemia; R65.20 Severe sepsis without septic shock; Z82.49 Family history of ischemic heart disease and other diseases of the circulatory system; Z86.711 Personal history of pulmonary embolism; Z90.710 Acquired absence of both cervix and uterus; Z98.51 Tubal ligation status
CPT/HCPCS: 36415; 71020; 80053; 81001; 83605; 84145; 85007; 85025; 87040; 87070; 87804; 87880; 93005; 94070; 94640; 96365; 96367; 96375; 99406; J0456; J0690; J0696; J1885; J2405; J7030; J7120; J7620; 99291-25

== ENCOUNTER 2017-04-05 14:20 | Emergency (ER) | payer SELFPAY ==
[2017-04-05 14:43] LABS: URINE HCG POC HCG NEGATIVE (Negative)
[2017-04-05] MEDS: clonazePAM 0.5 MG TABLET PO (16:00)
[2017-04-05 17:18] LABS: POC GLUCOSE 78 mg/dL (70-99)
== END 2017-04-05 17:33 | disposition home or self-care (01) ==
LOC: ER 14:20
DX: F13.239 Sedative, hypnotic or anxiolytic dependence with withdrawal, unspecified (principal); E16.2 Hypoglycemia, unspecified; R61 Generalized hyperhidrosis; G89.29 Other chronic pain; J45.909 Unspecified asthma, uncomplicated; F32.9 Major depressive disorder, single episode, unspecified; Z90.710 Acquired absence of both cervix and uterus; Z98.51 Tubal ligation status
CPT/HCPCS: 81025; 82962; 93005; 99283-25

== ENCOUNTER 2017-05-06 15:02 | Inpatient (IN) | payer SELFPAY ==
[2017-05-06] MEDS ORDERED: IV NORMAL SALINE 500ML BAG 500 ML IV (15:30)
[2017-05-06 15:54] LABS: ADD MAN DIFF? NO
[2017-05-06] MEDS: IPRATRPIUM/ALBUTEROL 0.5/2.5MG 3 ML NEBU. NEB ×2 (15:55→19:19)
[2017-05-06 15:57] LABS: BASO # 0.1 x10^3/uL (0.0-0.2); BASO % 0 % (0-3); EOS # 0.5 x10^3/uL (0.0-0.7); EOS % 3 % (0-3); HEMATOCRIT 43.8 % (36.0-47.0); HEMOGLOBIN 14.7 g/dL (12.0-15.5); INFLUENZA A PATIENT NEGATIVE (NEGATIVE); INFLUENZA B PATIENT NEGATIVE (NEGATIVE); LYMPH # 1.7 x10^3/uL (1.0-4.8); LYMPH % 10 % (24-48); MEAN CORPUSCULAR HEMOGLOBIN 28 pg (25-35); MEAN CORPUSCULAR HGB CONC 34 g/dL (31-37); MEAN CORPUSCULAR VOLUME 85 fL (79-100); MONO # 0.5 x10^3/uL (0.0-1.1); MONO % 3 % (0-9); NEUT # 13.6 x10^3uL (1.8-7.7); NEUT % 83 % (31-73); OBC FLU VALID; PLATELET COUNT 223 x10^3/uL (140-400); RED BLOOD COUNT 5.18 x10^6/uL (3.50-5.40); RED CELL DISTRIBUTION WIDTH 14.1 % (11.5-14.5); WHITE BLOOD COUNT 16.4 x10^3/uL (4.0-11.0)
[2017-05-06] MEDS: IV NORMAL SALINE 1000ML BAG 1,000 ML IV ×2 (15:58→18:45)
[2017-05-06] MEDS: methylPREDNISolone SOD SUCC PF 125 MG/2 ML VIAL. IV ×2 (15:59→21:32)
[2017-05-06 16:08] LABS: INR 1.4 (0.8-1.1); PARTIAL THROMBOPLASTIN TIME 38 SEC (24-38); PROTHROMBIN TIME PATIENT 16.1 SEC (11.7-14.0)
[2017-05-06 16:14] LABS: ANION GAP 7 (6-14); BLOOD UREA NITROGEN 11 mg/dL (7-20); BUN/CREATININE RATIO 12 (6-20); CALCIUM 8.7 mg/dL (8.5-10.1); CARBON DIOXIDE 30 mmol/L (21-32); CHLORIDE 102 mmol/L (98-107); CREATININE 0.9 mg/dL (0.6-1.0); GLUCOSE 116 mg/dL (70-99); POTASSIUM 3.8 mmol/L (3.5-5.1); SODIUM 139 mmol/L (136-145)
[2017-05-06 16:16] LABS: ETHANOL < 10 mg/dL (0-10)
[2017-05-06 16:20] LABS: ALBUMIN 3.2 g/dL (3.4-5.0); ALBUMIN/GLOBULIN RATIO 0.8 (1.0-1.7); ALK PHOS 78 U/L (46-116); ALT (SGPT) 19 U/L (14-59); AST (SGOT) 21 U/L (15-37); MAGNESIUM 1.5 mg/dL (1.8-2.4); TOTAL BILIRUBIN 0.3 mg/dL (0.2-1.0); TOTAL PROTEIN 7.2 g/dL (6.4-8.2)
[2017-05-06 16:23] LABS: LACTIC ACID 1.3 mmol/L (0.4-2.0); TROPONINI < 0.017 ng/mL (0.000-0.055)
[2017-05-06 16:27] LABS: CKMB INDEX 0.9 % (0-4); CKMB MASS 0.7 ng/mL (0.0-3.6); CREATINE KINASE 76 U/L (26-192)
[2017-05-06 16:27] LABS: NT-PRO BNP 177 pg/mL (0-124)
[2017-05-06 16:28] LABS: THYROID STIM HORMONE (TSH) 2.529 uIU/mL (0.358-3.74)
[2017-05-06] MEDS ORDERED: VANCOMYCIN PER PHARMACY MC (16:45)
[2017-05-06] MEDS ORDERED: PIPERACILLIN/TAZOBACTAM 4.5 GM in IV NORMAL SALINE 100ML 100 ML IV (17:00)
[2017-05-06] MEDS ORDERED: VANCOMYCIN 2 GM in IV DEXTROSE 5 %-0.45 % NACL 500 ML IV (17:00)
[2017-05-06 17:08] LABS: PROCALCITONIN < 0.10 ng/mL (0.00-0.10)
[2017-05-06] MEDS ORDERED: MORPHINE SULFATE 4 MG/ML DISP.SYRIN. IV ×2 (17:15→22:30)
[2017-05-06 17:19] LABS: % BANDS 25 % (0-9); % EOS 2 % (0-5); % LYMPHS 13 % (24-48); % MONOS 3 % (0-10); % SEGS 57 % (35-66)
[2017-05-06 17:20] LABS: TOXIC GRANULATION SLIGHT
[2017-05-06 17:22] LABS: PLT ESTIMATE ADEQUATE (ADEQUATE)
[2017-05-06 18:02] LABS: BILIRUBIN,URINE NEGATIVE (NEG); CLARITY,URINE CLEAR; COLOR,URINE YELLOW; GLUCOSE,URINE NEGATIVE (NEG); NITRITE,URINE NEGATIVE (NEG); PROTEIN,URINE NEGATIVE (NEG-TRACE); UROBILINOGEN,URINE 0.2 mg/dL (0.2 mg/dL)
[2017-05-06 18:08] LABS: BACTERIA,URINE FEW /HPF (0-FEW); RBC,URINE 0 /HPF (0-2); SQUAMOUS EPITHELIAL CELL,UR FEW /LPF; WBC,URINE 0 /HPF (0-4)
[2017-05-06 18:09] LABS: AMPHETAMINE/METHAMPHETAMINE NEG (NEG); BARBITURATES NEG (NEG); BENZODIAZEPINES NEG (NEG); CANNABINOIDS NEG (NEG); COCAINE NEG (NEG); METHADONE POS (NEG); OPIATES NEG (NEG); PHENCYCLIDINE NEG (NEG)
[2017-05-06 18:10] LABS: ETHANOL, URINE NEG (NEG)
[2017-05-06] MEDS: clonazePAM 1 MG TABLET PO (21:32)
[2017-05-06] MEDS ORDERED: PIPERACILLIN/TAZOBACTAM 3.375 GM in IV NORMAL SALINE 50ML 50 ML IV (22:00)
[2017-05-07] MEDS: ANTI-COAG MONITOR BY PHARMACY. MC ×2 (01:26→08:20)
[2017-05-07 04:28] LABS: BASO % 0 % (0-3); EOS % 0 % (0-3); HEMATOCRIT 41.2 % (36.0-47.0); HEMOGLOBIN 13.6 g/dL (12.0-15.5); LYMPH # 0.7 x10^3/uL (1.0-4.8); LYMPH % 4 % (24-48); MEAN CORPUSCULAR HEMOGLOBIN 28 pg (25-35); MEAN CORPUSCULAR HGB CONC 33 g/dL (31-37); MEAN CORPUSCULAR VOLUME 85 fL (79-100); MONO # 0.2 x10^3/uL (0.0-1.1); MONO % 1 % (0-9); NEUT % 94 % (31-73); PLATELET COUNT 210 x10^3/uL (140-400); RED BLOOD COUNT 4.85 x10^6/uL (3.50-5.40); RED CELL DISTRIBUTION WIDTH 14.3 % (11.5-14.5)
[2017-05-07 04:57] LABS: ADD MAN DIFF? YES; ALBUMIN 2.8 g/dL (3.4-5.0); ALBUMIN/GLOBULIN RATIO 0.7 (1.0-1.7); ALK PHOS 58 U/L (46-116); ALT (SGPT) 22 U/L (14-59); ANION GAP 10 (6-14); AST (SGOT) 16 U/L (15-37); BLOOD UREA NITROGEN 10 mg/dL (7-20); BUN/CREATININE RATIO 10 (6-20); CALCIUM 8.5 mg/dL (8.5-10.1); CARBON DIOXIDE 24 mmol/L (21-32); CHLORIDE 106 mmol/L (98-107); GFR 60.2; GLUCOSE 200 mg/dL (70-99); POTASSIUM 3.3 mmol/L (3.5-5.1); SODIUM 140 mmol/L (136-145); TOTAL BILIRUBIN 0.3 mg/dL (0.2-1.0); TOTAL PROTEIN 6.8 g/dL (6.4-8.2)
[2017-05-07 06:29] LABS: NEGATIVE OBC STREP NEG; POSITIVE OBC STREP POS
[2017-05-07] MEDS: ACETAMINOPHEN 325 MG TABLET. PO (06:42)
[2017-05-07] MEDS: IPRATRPIUM/ALBUTEROL 0.5/2.5MG 3 ML NEBU. NEB ×2 (07:47→11:42)
[2017-05-07] MEDS: SERTRALINE 50 MG TABLET. PO (08:28)
[2017-05-07] MEDS: clonazePAM 1 MG TABLET PO (08:28)
[2017-05-07] MEDS: NICOTINE 21MG PATCH. TD (08:28)
[2017-05-07] MEDS: LACTOBACILLUS RHAMNOSUS GG 1 CAPSULE. PO (08:32)
[2017-05-07 10:20] LABS: % BANDS 23 % (0-9); % LYMPHS 6 % (24-48); % SEGS 71 % (35-66)
[2017-05-07 10:21] LABS: OVALOCYTES FEW; PLT ESTIMATE ADEQUATE (ADEQUATE)
[2017-05-07] MEDS ORDERED: RIVAROXABAN 10 MG TABLET. PO (17:00)
[2017-05-07 23:07] LABS: MRSA BY PCR Negative (Negative)
== END 2017-05-07 12:30 | disposition home or self-care (01) | DRG 871 ==
LOC: 5 NORTH 17:59 → ER 15:02 → 5 NORTH 16:57
DX: A41.9 Sepsis, unspecified organism (principal); J96.91 Respiratory failure, unspecified with hypoxia; J18.1 Lobar pneumonia, unspecified organism; J44.1 Chronic obstructive pulmonary disease with (acute) exacerbation; F11.20 Opioid dependence, uncomplicated; J44.0 Chronic obstructive pulmonary disease with (acute) lower respiratory infection; F32.9 Major depressive disorder, single episode, unspecified; F17.210 Nicotine dependence, cigarettes, uncomplicated; I10 Essential (primary) hypertension; F41.9 Anxiety disorder, unspecified; Y95 Nosocomial condition; Z86.711 Personal history of pulmonary embolism; Z90.710 Acquired absence of both cervix and uterus; Z82.49 Family history of ischemic heart disease and other diseases of the circulatory system; Z79.01 Long term (current) use of anticoagulants
CPT/HCPCS: 36415; 71045; 80053; 80307; 81001; 82553; 83605; 83735; 83880; 84145; 84443; 84484; 85007; 85025; 85610; 85730; 87040; 87070; 87641; 87804; 87804-59; 87880; 93005; 94640; 94760; 96361; 96374; 96375; 99285; 99285-25; G0480; J1956; J2930; J7030; J7620

== ENCOUNTER → 2017-06-16 | Outpatient (CLI) | payer OTHER | END | disposition home or self-care (01) | LOC: CT 11:24 | DX: R91.1 Solitary pulmonary nodule (principal) | CPT/HCPCS: 71250 ==

== ENCOUNTER 2017-07-18 10:47 | Emergency (ER) | payer SELFPAY ==
[2017-07-18] MEDS ORDERED: HYDROcodone/APAP 5/325MG 1 TAB TABLET PO (11:15)
[2017-07-18] MEDS ORDERED: diazePAM 5 MG TABLET PO (11:15)
== END 2017-07-18 12:04 | disposition home or self-care (01) ==
LOC: ER 10:47
DX: S20.212A Contusion of left front wall of thorax, initial encounter (principal); J45.909 Unspecified asthma, uncomplicated; X58.XXXA Exposure to other specified factors, initial encounter; Y93.89 Activity, other specified; Y99.8 Other external cause status; Y92.89 Other specified places as the place of occurrence of the external cause
CPT/HCPCS: 71101; 99284

== ENCOUNTER 2017-08-10 20:19 | Emergency (ER) | payer SELFPAY | END 2017-08-10 21:46 | disposition home or self-care (01) | LOC: ER 20:19 | DX: J20.9 Acute bronchitis, unspecified (principal); H66.93 Otitis media, unspecified, bilateral; F17.200 Nicotine dependence, unspecified, uncomplicated; F41.9 Anxiety disorder, unspecified; F11.90 Opioid use, unspecified, uncomplicated; J44.9 Chronic obstructive pulmonary disease, unspecified; F32.9 Major depressive disorder, single episode, unspecified; Z98.51 Tubal ligation status; Z90.710 Acquired absence of both cervix and uterus | CPT/HCPCS: 99283 ==

== ENCOUNTER → 2017-11-14 | Outpatient (CLI) | payer OTHER ==
[2017-10-05 15:00] VITALS: BP 129/77
[~2017-11-14] MED LIST changes: +AMOX1TAB61 PO; +BENZ100C PO; +CYCL5TAB PO; -IPRA3AMP NEB; +IPRA3AMP29 NEB; +LEVO750T5 PO; +LEXAPRO20 MG PO; +NICO1PAT21 TP; +PRAZ1CAP PO; +PRED20TA PO; +PRED50TA PO; +RIVA20TA2 PO; +SERT50TA8 PO; +VENTOLIN HFA18 GM INH
== END | disposition home or self-care (01) ==
LOC: PF 07:50
PROVIDERS: ATTEND Family Medicine
DX: J44.9 Chronic obstructive pulmonary disease, unspecified (principal); F43.10 Post-traumatic stress disorder, unspecified; I10 Essential (primary) hypertension; Z87.891 Personal history of nicotine dependence
CPT/HCPCS: 94010; 94729

== ENCOUNTER 2018-07-12 15:49 | Emergency (ER) | payer SELFPAY ==
[~2018-07-12] VITALS: Ht 167.6 cm; Wt 95.3 kg
[~2018-07-12 15:49] MED LIST changes: +ALBU2.5V8 INH; -PROAIR HFA8.5 GM INH
[2018-07-12 15:55] VITALS: BP 133/88
[2018-07-12] MEDS ORDERED: AMOX875T PO (16:02)
--- NOTE | 2018-07-12 16:02 | PHYS DOC ---
Past Medical History Past Medical History: Anxiety, Asthma, COPD, Depression, DVT, Pneumonia Additional Past Medical Histor: back pain, PE, pneumonia, opioid dependency - methadone program Past Surgical History: Hysterectomy, Tubal ligation, Other Additional Past Surgical Histo: UMBILICAL HERNIA, BLADDER SLING Alcohol Use: None Drug Use: None Adult General Chief Complaint Chief Complaint: EARACHE/EAR PAIN [facility] Patient is a 43 year old female who presents with ear pressure and pain in her right ear that has been ongoing for 2 weeks. Associated symptoms included decreased hearing. Has tried Ibuprofen 600 mg around 2 hours ago as well as heat and that is not helping. Rates her pain as 8/10 and throbbing/sharp. Review of Systems Review of Systems Constitutional: Denies fever or chills [] Eyes: Denies change in visual acuity, redness, or eye pain [] HENT: Denies nasal congestion or sore throat. Reports Ear pain/pressure. Respiratory: Denies cough or shortness of breath [] Cardiovascular: No additional information not addressed in HPI [] GI: Denies abdominal pain, nausea, vomiting, bloody stools or diarrhea [] : Denies dysuria or hematuria [] Musculoskeletal: Denies back pain or joint pain [] Integument: Denies rash or skin lesions [] Neurologic: Denies headache, focal weakness or sensory changes [] Endocrine: Denies polyuria or polydipsia [] Complete systems were reviewed and found to be within normal limits, except as documented in this note. Allergies Allergies Allergies Coded Allergies Type Severity Reaction Last Updated Verified No Known Drug Allergies 01/19/13 No Physical Exam Physical Exam Constitutional: Well developed, well nourished, no acute distress, non-toxic appearance. [] HENT: Normocephalic, atraumatic, bilateral external ears normal, Right tympanic membranes is erythematous and bulging. Right inner ear is erythematous. Left tympanic membrane is pearly peterson in appearance. oropharynx moist, no oral exudates, nose normal. [] Eyes: PERRLA, EOMI, conjunctiva normal, no discharge. [] Neck: Normal range of motion, no tenderness, supple, no stridor. [] Cardiovascular:Heart rate regular rhythm, no murmur [] Lungs & Thorax: Bilateral breath sounds clear to auscultation [] Abdomen: Bowel sounds normal, soft, no tenderness, no masses, no pulsatile masses. [] Skin: Warm, dry, no erythema, no rash. [] Back: No tenderness, no CVA tenderness. [] Extremities: No tenderness, no cyanosis, no clubbing, ROM intact, no edema. [] Neurologic: Alert and oriented X 3, normal motor function, normal sensory function, no focal deficits noted. [] Psychologic: Affect normal, judgement normal, mood normal. [] EKG EKG [] Radiology/Procedures Radiology/Procedures [] Course & Med Decision Making Course & Med Decision Making Pertinent Labs and Imaging studies reviewed. (See chart for details) Appears to have R otitis media. Will d/c home on Amoxicillin. Patient is agreeable to the plan of care. Dragon Disclaimer Dragon Disclaimer This electronic medical record was generated, in whole or in part, using a voice recognition dictation system. Departure Departure Impression: Primary Impression: Otitis media Disposition: HOME, SELF-CARE Condition: STABLE Referrals: KATARZYNA PERDOMO MD (PCP) Patient Instructions: Otitis Media, Adult Additional Instructions: Please take antibiotics as prescribed. If symptoms worsen come back to ER or follow up with primary care. Scripts Amoxicillin (AMOXICILLIN) 875 Mg Tablet 1 TAB PO BID for 7 Days, #14 TAB Prov: THUY GALVEZ APRN 07/12/18 Problem Qualifiers Primary Impression: Otitis media Chronicity: acute Laterality: right Recurrence: not specified as recurrent Spontaneous tympanic membrane rupture: without spontaneous rupture THUY GALVEZ APRN Jul 12, 2018 16:02
== END 2018-07-12 16:10 | disposition home or self-care (01) ==
LOC: ER 15:49
DX: H66.91 Otitis media, unspecified, right ear (principal); F41.9 Anxiety disorder, unspecified; F32.9 Major depressive disorder, single episode, unspecified; J44.9 Chronic obstructive pulmonary disease, unspecified; Z86.718 Personal history of other venous thrombosis and embolism; Z90.710 Acquired absence of both cervix and uterus; Z98.51 Tubal ligation status
CPT/HCPCS: 99283

== ENCOUNTER 2018-07-23 05:02 | Emergency (ER) | payer SELFPAY ==
[~2018-07-23] VITALS: Ht 165.1 cm; Wt 104.3 kg
[~2018-07-23 05:02] MED LIST changes: +AMOX875T PO
[2018-07-23 05:15] VITALS: BP 158/94
[2018-07-23] MEDS ORDERED: CLIN300C8 PO (05:22)
--- NOTE | 2018-07-23 05:22 | PHYS DOC ---
Past Medical History Past Medical History: Anxiety, Asthma, COPD, Depression, DVT, Pneumonia Additional Past Medical Histor: back pain, PE, pneumonia, opioid dependency - methadone program Past Surgical History: Hysterectomy, Tubal ligation, Other Additional Past Surgical Histo: UMBILICAL HERNIA, BLADDER SLING Alcohol Use: None Drug Use: None Adult General Chief Complaint Chief Complaint: INSECT BITE HPI HPI Patient is a 43 year old [f__sex] who presents with [] Review of Systems Review of Systems Constitutional: Denies fever or chills [] Eyes: Denies change in visual acuity, redness, or eye pain [] HENT: Denies nasal congestion or sore throat [] Respiratory: Denies cough or shortness of breath [] Cardiovascular: No additional information not addressed in HPI [] GI: Denies abdominal pain, nausea, vomiting, bloody stools or diarrhea [] : Denies dysuria or hematuria [] Musculoskeletal: Denies back pain or joint pain [] Integument: Denies rash or skin lesions [] Neurologic: Denies headache, focal weakness or sensory changes [] Endocrine: Denies polyuria or polydipsia [] All other systems were reviewed and found to be within normal limits, except as documented in this note. Allergies Allergies Allergies Coded Allergies Type Severity Reaction Last Updated Verified No Known Drug Allergies 01/19/13 No Physical Exam Physical Exam Constitutional: Well developed, well nourished, no acute distress, non-toxic appearance. [] HENT: Normocephalic, atraumatic, bilateral external ears normal, oropharynx moist, no oral exudates, nose normal. [] Eyes: PERRLA, EOMI, conjunctiva normal, no discharge. [] Neck: Normal range of motion, no tenderness, supple, no stridor. [] Cardiovascular:Heart rate regular rhythm, no murmur [] Lungs & Thorax: Bilateral breath sounds clear to auscultation [] Abdomen: Bowel sounds normal, soft, no tenderness, no masses, no pulsatile masses. [] Skin: Warm, dry, no erythema, no rash. [] Back: No tenderness, no CVA tenderness. [] Extremities: No tenderness, no cyanosis, no clubbing, ROM intact, no edema. [] Neurologic: Alert and oriented X 3, normal motor function, normal sensory function, no focal deficits noted. [] Psychologic: Affect normal, judgement normal, mood normal. [] EKG EKG [] Radiology/Procedures Radiology/Procedures [] Course & Med Decision Making Course & Med Decision Making Pertinent Labs and Imaging studies reviewed. (See chart for details) [] Dragon Disclaimer Dragon Disclaimer This electronic medical record was generated, in whole or in part, using a voice recognition dictation system. Departure Departure Impression: Primary Impression: Cellulitis Additional Impression: Abrasion Disposition: HOME, SELF-CARE Condition: STABLE Referrals: KATARZYNA PERDOMO MD (PCP) Patient Instructions: Cellulitis, [id number] Additional Instructions: Do not soak your wound. You may shower. Clean wound daily with soap and water. Change dressing 2 times daily. Use over the counter antibiotic ointment with each dressing change. Scripts Clindamycin Hcl (CLINDAMYCIN HCL) 300 Mg Capsule 1 CAP PO TID for 7 Days, #21 CAP Prov: THUY MAHAJAN DO 07/23/18 Problem Qualifiers Primary Impression: Cellulitis Site of cellulitis: extremity Site of cellulitis of extremity: lower extremity Laterality: right Qualified Codes: L03.115 - Cellulitis of right lower limb THUY MAHAJAN DO Jul 23, 2018 05:22
[2018-07-23] MEDS ORDERED: NEOMY/BACITR/POLYMYXIN OINT PACKET. TP ONE (05:30)
[2018-07-23] MEDS ORDERED: CLINDAMYCIN HCL 150 MG CAPSULE. PO ONE (05:30)
== END 2018-07-23 05:37 | disposition home or self-care (01) ==
LOC: ER 05:02
DX: S90.511A Abrasion, right ankle, initial encounter (principal); L03.115 Cellulitis of right lower limb; F41.9 Anxiety disorder, unspecified; J44.9 Chronic obstructive pulmonary disease, unspecified; F32.9 Major depressive disorder, single episode, unspecified; Z86.718 Personal history of other venous thrombosis and embolism; Z90.710 Acquired absence of both cervix and uterus; Z98.51 Tubal ligation status; W57.XXXA Bitten or stung by nonvenomous insect and other nonvenomous arthropods, initial encounter; Y93.89 Activity, other specified; Y92.89 Other specified places as the place of occurrence of the external cause; Y99.8 Other external cause status
CPT/HCPCS: 99283

== ENCOUNTER 2018-08-28 22:36 | Emergency (ER) | payer SELFPAY ==
[~2018-08-28] VITALS: Ht 172.7 cm; Wt 104.3 kg
[~2018-08-28 22:36] MED LIST changes: +CLIN300C8 PO
[2018-08-28 23:21] LABS: BASO % 1 % (0-3); EOS % 5 % (0-3); HEMATOCRIT 46.9 % (36.0-47.0); HEMOGLOBIN 15.9 g/dL (12.0-15.5); LYMPH % 25 % (24-48); MEAN CORPUSCULAR HEMOGLOBIN 28 pg (25-35); MEAN CORPUSCULAR HGB CONC 34 g/dL (31-37); MEAN CORPUSCULAR VOLUME 83 fL (79-100); MONO # 0.3 x10^3/uL (0.0-1.1); MONO % 4 % (0-9); NEUT # 5.3 x10^3/uL (1.8-7.7); NEUT % 67 % (31-73); PLATELET COUNT 278 x10^3/uL (140-400); RED BLOOD COUNT 5.64 x10^6/uL (3.50-5.40)
[2018-08-28 23:22] LABS: BASO # 0.1 x10^3/uL (0.0-0.2); EOS # 0.4 x10^3/uL (0.0-0.7)
[2018-08-28 23:30] LABS: CALCIUM 9.5 mg/dL (8.5-10.1); CREATININE 0.9 mg/dL (0.6-1.0); GFR 67.7; POTASSIUM 3.6 mmol/L (3.5-5.1)
[2018-08-28] MEDS ORDERED: ONDANSETRON PF 4 MG/2 ML VIAL. IV ONE (23:30)
[2018-08-28] MEDS ORDERED: MORPHINE SULFATE 4 MG/ML VIAL. IV ONE (23:30)
[2018-08-28] MEDS ORDERED: IV NORMAL SALINE 1000ML BAG 1,000 ML IV SCH (23:30)
[2018-08-28 23:39] LABS: ALBUMIN 3.5 g/dL (3.4-5.0); DIRECT BILIRUBIN 0.1 mg/dL (0.0-0.2); MAGNESIUM 1.9 mg/dL (1.8-2.4); TOTAL BILIRUBIN 0.2 mg/dL (0.2-1.0)
--- NOTE | 2018-08-29 01:24 | PHYS DOC ---
Past Medical History Past Medical History: Anxiety, Asthma, COPD, Depression, DVT, Pneumonia Additional Past Medical Histor: back pain, PE, pneumonia, opioid dependency - methadone program Past Surgical History: Hysterectomy, Tubal ligation, Other Additional Past Surgical Histo: UMBILICAL HERNIA, BLADDER SLING Alcohol Use: None Drug Use: None Social History Narrative: IN METHADONE PROGRAM Adult General Chief Complaint Chief Complaint: WITHDRAWL HPI HPI Patient is a 43 year old female brought in by EMS because of methadone withdrawal. Patient states she has had taking methadone daily for the last 2 years. Her medication yesterday and took a dose of Suboxone belonged to a friend yesterday improvement of her pain and tach and history of Narcan belonged to her with increasing of pain and agitation and thought she had an allergic reaction to Narcan or subluxation and called 911. Patient denies suicidal and homicidal ideation or hallucination and complaining of hurting all over and rated her pain 10 over 10 and asking for pain medication. Review of Systems Review of Systems Constitutional: Denies fever or chills [] Eyes: Denies change in visual acuity, redness, or eye pain [] HENT: Denies nasal congestion or sore throat [] Respiratory: Denies cough or shortness of breath [] Cardiovascular: No additional information not addressed in HPI [] GI: Denies abdominal pain, nausea, vomiting, bloody stools or diarrhea [] : Denies dysuria or hematuria [] Musculoskeletal: Reports back pain or joint pain Integument: Denies rash or skin lesions [] Neurologic: Denies headache, focal weakness or sensory changes [] Endocrine: Denies polyuria or polydipsia [] All other systems were reviewed and found to be within normal limits, except as documented in this note. Current Medications Current Medications Current Medications Medications (Trade) Dose Ordered Sig/Georgette Start Time Stop Time Status Last Admin Dose Admin Acetaminophen/ Hydrocodone Bitart (Lortab 5/325) 1 tab STK-MED ONCE 08/29/18 01:29 08/29/18 01:30 DC Morphine Sulfate (Morphine Sulfate) 4 mg 1X ONCE 08/28/18 23:30 08/28/18 23:31 DC 08/28/18 23:24 4 MG Ondansetron HCl (Zofran) 4 mg 1X ONCE 08/28/18 23:30 08/28/18 23:31 DC 08/28/18 23:23 4 MG Sodium Chloride 1,000 ml @ 1,000 mls/hr Q1H 08/28/18 23:30 08/29/18 00:29 DC 08/28/18 23:23 1,000 MLS/HR Allergies Allergies Allergies Coded Allergies Type Severity Reaction Last Updated Verified No Known Drug Allergies 01/19/13 No Physical Exam Physical Exam Constitutional: Well nourished, mild distress, non-toxic appearance. [] HENT: Normocephalic, atraumatic, oropharynx moist. Eyes: PERRLA, EOMI, conjunctiva normal, no discharge. [] Neck: Normal range of motion, no tenderness, supple, no stridor. [] Cardiovascular:Heart rate regular rhythm, no murmur [] Lungs & Thorax: Bilateral breath sounds clear to auscultation [] Abdomen: Bowel sounds normal, soft, no tenderness, no masses, no pulsatile ana s. [] Skin: Warm, dry, no erythema, no rash. [] Back: No tenderness, no CVA tenderness. [] Extremities: No tenderness, no cyanosis, no clubbing, ROM intact, no edema. [] Neurologic: Alert and oriented X 3, normal motor function, normal sensory function, no focal deficits noted. [] Psychologic: Affect anxious, mood normal. [] Current Patient Data Vital Signs Vital Signs Date Time Temp Pulse Resp B/P (MAP) Pulse Ox O2 Delivery O2 Flow Rate FiO2 08/29/18 01:31 98 Room Air 08/28/18 23:24 18 08/28/18 22:37 98.0 78 175/118 (137) 98.0 Lab Values Laboratory Tests Test 08/28/18 23:13 White Blood Count 8.0 x10^3/uL (4.0-11.0) Red Blood Count 5.64 x10^6/uL (3.50-5.40) H Hemoglobin 15.9 g/dL (12.0-15.5) H Hematocrit 46.9 % (36.0-47.0) Mean Corpuscular Volume 83 fL (79-100) Mean Corpuscular Hemoglobin 28 pg (25-35) Mean Corpuscular Hemoglobin Concent 34 g/dL (31-37) Red Cell Distribution Width 15.0 % (11.5-14.5) H Platelet Count 278 x10^3/uL (140-400) Neutrophils (%) (Auto) 67 % (31-73) Lymphocytes (%) (Auto) 25 % (24-48) Monocytes (%) (Auto) 4 % (0-9) Eosinophils (%) (Auto) 5 % (0-3) H Basophils (%) (Auto) 1 % (0-3) Neutrophils # (Auto) 5.3 x10^3/uL (1.8-7.7) Lymphocytes # (Auto) 2.0 x10^3/uL (1.0-4.8) Monocytes # (Auto) 0.3 x10^3/uL (0.0-1.1) Eosinophils # (Auto) 0.4 x10^3/uL (0.0-0.7) Basophils # (Auto) 0.1 x10^3/uL (0.0-0.2) Sodium Level 139 mmol/L (136-145) Potassium Level 3.6 mmol/L (3.5-5.1) Chloride Level 103 mmol/L (98-107) Carbon Dioxide Level 26 mmol/L (21-32) Anion Gap 10 (6-14) Blood Urea Nitrogen 15 mg/dL (7-20) Creatinine 0.9 mg/dL (0.6-1.0) Estimated GFR (Cockcroft-Gault) 67.7 Glucose Level 109 mg/dL (70-99) H Calcium Level 9.5 mg/dL (8.5-10.1) Magnesium Level 1.9 mg/dL (1.8-2.4) Total Bilirubin 0.2 mg/dL (0.2-1.0) Direct Bilirubin 0.1 mg/dL (0.0-0.2) Aspartate Amino Transferase (AST) 20 U/L (15-37) Alanine Aminotransferase (ALT) 30 U/L (14-59) Alkaline Phosphatase 80 U/L (46-116) Total Protein 8.0 g/dL (6.4-8.2) Albumin 3.5 g/dL (3.4-5.0) Ethyl Alcohol Level < 10 mg/dL (0-10) Laboratory Tests 08/28/18 23:13 Laboratory Tests 08/28/18 23:13 EKG EKG EKG interpreted by me. EKG at 28/03/11 showed normal sinus rhythm at rate of 71, prolonged QT at 460, no acute ST and T-wave abnormalities. Radiology/Procedures Radiology/Procedures [] Course & Med Decision Making Course & Med Decision Making Pertinent Labs reviewed. (See chart for details) Evaluation of patient in ER showed 43-year-old female patient with history of methadone dependency was told of methadone and tooth subluxation and had increase of pain. patient was agitated and had elevation of blood pressure and heart rate at arrival to er and treated with 4 mg of iv morphine with improvement of her condition. she refused to give a urine sample. patient ambulated without problem and felt better and was advised to follow-up with her methadone clinic in the morning. Dragon Disclaimer Dragon Disclaimer This electronic medical record was generated, in whole or in part, using a voice recognition dictation system. Departure Departure Impression: Primary Impression: Narcotic withdrawal Disposition: HOME, SELF-CARE (at 0125) Condition: IMPROVED Referrals: KATARZYNA PERDOMO MD (PCP) Patient Instructions: Opiate Dependence Additional Instructions: Follow-up with your physician regarding methadone prescription in the morning Drink plenty of liquids Follow-up with your primary care physician in 3-5 days Return to ER if not getting better JODI CASSIDY MD Aug 29, 2018 01:23
[2018-08-29] MEDS ORDERED: HYDROcodone/APAP 5/325MG 1 TAB TABLET ONE (01:29)
[2018-08-29] MEDS ORDERED: HYDROcodone/APAP 5/325MG 1 TAB TABLET PO ONE (02:00)
--- NOTE | 2018-08-29 06:58 | EKG ---
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
== END 2018-08-29 01:37 | disposition home or self-care (01) ==
LOC: ER 22:36
DX: F11.23 Opioid dependence with withdrawal (principal); R45.1 Restlessness and agitation; F41.9 Anxiety disorder, unspecified; M54.9 Dorsalgia, unspecified; J44.9 Chronic obstructive pulmonary disease, unspecified; F32.9 Major depressive disorder, single episode, unspecified; Z86.718 Personal history of other venous thrombosis and embolism; Z90.710 Acquired absence of both cervix and uterus; Z98.51 Tubal ligation status
CPT/HCPCS: 36415; 80048; 80076; 83735; 85025; 93005; 96374; 96375; 99285; G0480; J2270; J2405; J7030

== ENCOUNTER 2019-08-07 19:05 | Emergency (ER) | payer MEDICAID ==
[~2019-08-07] VITALS: Ht 167.6 cm; Wt 72.6 kg
--- NOTE | 2019-08-07 19:30 | PHYS DOC ---
Past Medical History Past Medical History: Anxiety, Asthma, COPD, Depression, DVT, Pneumonia Additional Past Medical Histor: back pain, PE, pneumonia, opioid dependency - methadone program Past Surgical History: Hysterectomy, Tubal ligation, Other Additional Past Surgical Histo: UMBILICAL HERNIA, BLADDER SLING Smoking Status: Current Every Day Smoker Alcohol Use: None Drug Use: Opiates General Adult EDM: Chief Complaint: OVERDOSE HPI: HPI: Patient is a 44 year old female presents for evaluation of accidental opiate overdose. Patient admits to taking 2 tablets of oxy 30mg and a tablet of xanax. Patient was found unresponsive. EMS treated patient with narcan. On arrival patient is a/ox4 She states she was not trying to harm herself. States she previous had an opiate abuse problem. 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 Patient has no complaints. Review of Systems: Review of Systems: Constitutional: Denies fever or chills. [] Eyes: Denies change in visual acuity. [] HENT: Denies nasal congestion or sore throat. [] Respiratory: Denies cough or shortness of breath. [] Cardiovascular: Denies chest pain or edema. [] GI: Denies abdominal pain, nausea, vomiting, bloody stools or diarrhea. [] : Denies dysuria. [] Musculoskeletal: Denies back pain or joint pain. [] Integument: Denies rash. [] Neurologic: Denies headache, focal weakness or sensory changes. [] Endocrine: Denies polyuria or polydipsia. [] Lymphatic: Denies swollen glands. [] Psychiatric: Denies depression or anxiety. [accidental overdose] Heart Score: Risk Factors: Risk Factors: DM, Current or recent (<one month) smoker, HTN, HLP, family history of CAD, obesity. Risk Scores: Score 0 - 3: 2.5% MACE over next 6 weeks - Discharge Home Score 4 - 6: 20.3% MACE over next 6 weeks - Admit for Clinical Observation Score 7 - 10: 72.7% MACE over next 6 weeks - Early Invasive Strategies Allergies: Allergies: Allergies Coded Allergies Type Severity Reaction Last Updated Verified No Known Drug Allergies 01/19/13 No Physical Exam: PE: Constitutional: Well developed, well nourished, no acute distress, non-toxic appearance. [] HENT: Normocephalic, atraumatic, bilateral external ears normal, oropharynx moist, no oral exudates, nose normal. [] Eyes: PERRLA, EOMI, conjunctiva normal, no discharge. [] Neck: Normal range of motion, no tenderness, supple, no stridor. [] Cardiovascular:Heart rate regular rhythm, no murmur [] Lungs & Thorax: Bilateral breath sounds clear to auscultation [] Abdomen: Bowel sounds normal, soft, no tenderness, no masses, no pulsatile m asses. [] Skin: Warm, dry, no erythema, no rash. [] Back: No tenderness, no CVA tenderness. [] Extremities: No tenderness, no cyanosis, no clubbing, ROM intact, no edema. [] Neurologic: Alert and oriented X 3, normal motor function, normal sensory function, no focal deficits noted. [] Psychologic: Affect normal, judgement normal, mood normal. [] EKG: EKhrs Rate 90 NSR no acute mi no st elevation no st depression[] Radiology/Procedures: Radiology/Procedures: [] Course & Med Decision Making: Course & Med Decision Making Pertinent Labs and Imaging studies reviewed. (See chart for details) []Patient was evaluate for chief complaint. EMS states patient family was performing CPR on patient. Upon EMS arrival patient was bagged then treated with narcan 2mg. Patient awoke prior to transport. On arrival patient a/ox4. Patient states she was trying to get high. Patient continues to deny HI or SI. PAT team was in ER- briefly evaluation patient. Denied HI or SI to PAT team. 2000hrs--- nursing informed me son gave a patient a box. Inside the box 2 unknown tablets found. Tablets research and found to be xanax. Nursing disposed of xanax with security supervising. Patient was observed for over 3 hours. Multiple re-examinations Patient asleep but awoken. Easily arousable. Patient awakend-- 2200hrs. Patient continues to deny HI. Patient ambulate in ER without assist. Patient a/ox 4 Patient called family for ride home. Patient discharged home. May Disclaimer: May Disclaimer: This electronic medical record was generated, in whole or in part, using a voice recognition dictation system. Departure Departure Impression: Primary Impression: Accidental overdose Disposition: HOME, SELF-CARE Condition: STABLE Referrals: KATARZYNA PERDOMO MD (PCP) Patient Instructions: Narcotic Overdose, Overdose, Accidental Justicifation of Admission Dx: Justifications for Admission: Justification of Admission Dx: N/A RUTHIE SCHROEDER DO Aug 07, 2019 19:30
[2019-08-07 22:15] VITALS: BP 140/92
[2019-08-07] MEDS ORDERED: ACETAMINOPHEN 325 MG TABLET. PO ONE (22:30)
--- NOTE | 2019-08-08 05:59 | EKG ---
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
[2019-08-09] MEDS ORDERED: AMOX1TAB61 PO (13:49)
== END 2019-08-07 22:33 | disposition home or self-care (01) ==
LOC: ER 19:05
DX: T40.2X1A Poisoning by other opioids, accidental (unintentional), initial encounter (principal); F41.9 Anxiety disorder, unspecified; J44.9 Chronic obstructive pulmonary disease, unspecified; F32.9 Major depressive disorder, single episode, unspecified; Z86.718 Personal history of other venous thrombosis and embolism; Z90.710 Acquired absence of both cervix and uterus; F17.200 Nicotine dependence, unspecified, uncomplicated; Z98.890 Other specified postprocedural states; Z98.51 Tubal ligation status; Y92.89 Other specified places as the place of occurrence of the external cause
CPT/HCPCS: 93005; 99285

== ENCOUNTER 2019-08-08 02:15 | Observation (INO) | payer MEDICAID ==
[~2019-08-08] VITALS: Ht 165.1 cm; Wt 73.2 kg
[2019-08-08 02:40] LABS: BASO # 0.1 x10^3/uL (0.0-0.2); BASO % 1 % (0-3); EOS # 0.4 x10^3/uL (0.0-0.7); EOS % 5 % (0-3); HEMATOCRIT 40.4 % (36.0-47.0); HEMOGLOBIN 13.4 g/dL (12.0-15.5); LYMPH # 1.9 x10^3/uL (1.0-4.8); LYMPH % 22 % (24-48); MEAN CORPUSCULAR HEMOGLOBIN 29 pg (25-35); MEAN CORPUSCULAR HGB CONC 33 g/dL (31-37); MEAN CORPUSCULAR VOLUME 87 fL (79-100); MONO # 0.3 x10^3/uL (0.0-1.1); MONO % 3 % (0-9); NEUT # 5.8 x10^3/uL (1.8-7.7); NEUT % 69 % (31-73); PLATELET COUNT 304 x10^3/uL (140-400); RED BLOOD COUNT 4.65 x10^6/uL (3.50-5.40); RED CELL DISTRIBUTION WIDTH 13.5 % (11.5-14.5); WHITE BLOOD COUNT 8.4 x10^3/uL (4.0-11.0)
[2019-08-08 02:49] LABS: CREATININE 1.1 mg/dL (0.6-1.0); GFR 53.5; POTASSIUM 4.2 mmol/L (3.5-5.1)
[2019-08-08 02:54] LABS: ALBUMIN 3.3 g/dL (3.4-5.0); ALBUMIN/GLOBULIN RATIO 0.9 (1.0-1.7); TOTAL BILIRUBIN 0.2 mg/dL (0.2-1.0); TOTAL PROTEIN 7.1 g/dL (6.4-8.2)
[2019-08-08] MEDS ORDERED: IV NORMAL SALINE 1000ML BAG 1,000 ML IV ONE (03:00)
[2019-08-08 03:09] LABS: BILIRUBIN,URINE NEGATIVE (NEG); CLARITY,URINE CLEAR; COLOR,URINE YELLOW; NITRITE,URINE POSITIVE (NEG); PH,URINE 6.5 (<5.0-8.0); PROTEIN,URINE 100 mg/dL (NEG-TRACE); UROBILINOGEN,URINE 0.2 mg/dL (0.2 mg/dL)
[2019-08-08 03:13] LABS: SQUAMOUS EPITHELIAL CELL,UR OCC /LPF
[2019-08-08 03:14] LABS: BACTERIA,URINE MANY /HPF (0-FEW); HYALINE CASTS, URINE OCCASIONAL /HPF; RBC,URINE 0 /HPF (0-2)
[2019-08-08] MEDS ORDERED: cefTRIAXone IV Push 1 GM VIAL. IVP ONE (04:00)
--- NOTE | 2019-08-08 04:18 | PHYS DOC ---
Past Medical History Past Medical History: Anxiety, Asthma, COPD, Depression, DVT, Pneumonia Additional Past Medical Histor: back pain, PE, pneumonia, opioid dependency - methadone program Past Surgical History: Hysterectomy, Tubal ligation, Other Additional Past Surgical Histo: UMBILICAL HERNIA, BLADDER SLING Smoking Status: Current Every Day Smoker Alcohol Use: Occasionally Drug Use: Opiates General Adult EDM: Chief Complaint: OVERDOSE HPI: HPI: Patient is a 44 year old female represents for evaluation after being found by family with altered mental status. Patient was seen previously in the night for suspected opiate overdose. 1st ER visiti EMS treated patient with narcan with improvement of mental status. Patient was observed for 3 hours. Patient was discharged home. Family went to get some food and came home and found patient again altered. EMS again treated patient with narcan with improvement of mental status. Patient denies using any drugs after being discharged home. She only complaint is being cold. On exam she is A/O x4. Patient has no complaints of pain. Review of Systems: Review of Systems: Constitutional: Denies fever or chills. [] Eyes: Denies change in visual acuity. [] HENT: Denies nasal congestion or sore throat. [] Respiratory: Denies cough or shortness of breath. [] Cardiovascular: Denies chest pain or edema. [] GI: Denies abdominal pain, nausea, vomiting, bloody stools or diarrhea. [] : Denies dysuria. [] Musculoskeletal: Denies back pain or joint pain. [] Integument: Denies rash. [] Neurologic: Denies headache, focal weakness or sensory changes. [] Endocrine: Denies polyuria or polydipsia. [] Lymphatic: Denies swollen glands. [] Psychiatric: Denies depression or anxiety. [] Heart Score: Risk Factors: Risk Factors: DM, Current or recent (<one month) smoker, HTN, HLP, family history of CAD, obesity. Risk Scores: Score 0 - 3: 2.5% MACE over next 6 weeks - Discharge Home Score 4 - 6: 20.3% MACE over next 6 weeks - Admit for Clinical Observation Score 7 - 10: 72.7% MACE over next 6 weeks - Early Invasive Strategies Current Medications: Current Medications Medications (Trade) Dose Ordered Sig/Georgette Start Time Stop Time Status Last Admin Dose Admin Ceftriaxone Sodium (Rocephin) 1 gm 1X ONCE 08/08/19 04:00 08/08/19 04:01 DC 08/08/19 03:26 1 GM Sodium Chloride 1,000 ml @ 1,000 mls/hr 1X ONCE 08/08/19 03:00 08/08/19 03:59 DC 08/08/19 03:01 1,000 MLS/HR Allergies: Allergies: Allergies Coded Allergies Type Severity Reaction Last Updated Verified No Known Drug Allergies 01/19/13 No Physical Exam: PE: Constitutional: Well developed, well nourished, no acute distress, non-toxic appearance. [] HENT: Normocephalic, atraumatic, bilateral external ears normal, oropharynx moist, no oral exudates, nose normal. [] Eyes: , EOMI, conjunctiva normal, no discharge. [] Neck: Normal range of motion, no tenderness, supple, Cardiovascular:Heart rate regular rhythm, Lungs & Thorax: no respiratory distress Abdomen: Bowel sounds normal, soft, no tenderness, Skin: Warm, dry, no erythema, no rash. [facial wound right cheek] Back: No tenderness, no CVA tenderness. [] Extremities: No tenderness, , ROM intact, Neurologic: Alert and oriented X 3, normal motor function, normal sensory function, no focal deficits noted. [] Psychologic: Affect normal, judgement normal, mood normal. [] Current Patient Data: Labs: Laboratory Tests Test 08/08/19 02:33 08/08/19 02:45 White Blood Count 8.4 x10^3/uL (4.0-11.0) Red Blood Count 4.65 x10^6/uL (3.50-5.40) Hemoglobin 13.4 g/dL (12.0-15.5) Hematocrit 40.4 % (36.0-47.0) Mean Corpuscular Volume 87 fL (79-100) Mean Corpuscular Hemoglobin 29 pg (25-35) Mean Corpuscular Hemoglobin Concent 33 g/dL (31-37) Red Cell Distribution Width 13.5 % (11.5-14.5) Platelet Count 304 x10^3/uL (140-400) Neutrophils (%) (Auto) 69 % (31-73) Lymphocytes (%) (Auto) 22 % (24-48) L Monocytes (%) (Auto) 3 % (0-9) Eosinophils (%) (Auto) 5 % (0-3) H Basophils (%) (Auto) 1 % (0-3) Neutrophils # (Auto) 5.8 x10^3/uL (1.8-7.7) Lymphocytes # (Auto) 1.9 x10^3/uL (1.0-4.8) Monocytes # (Auto) 0.3 x10^3/uL (0.0-1.1) Eosinophils # (Auto) 0.4 x10^3/uL (0.0-0.7) Basophils # (Auto) 0.1 x10^3/uL (0.0-0.2) Sodium Level 138 mmol/L (136-145) Potassium Level 4.2 mmol/L (3.5-5.1) Chloride Level 100 mmol/L (98-107) Carbon Dioxide Level 31 mmol/L (21-32) Anion Gap 7 (6-14) Blood Urea Nitrogen 12 mg/dL (7-20) Creatinine 1.1 mg/dL (0.6-1.0) H Estimated GFR (Cockcroft-Gault) 53.5 BUN/Creatinine Ratio 11 (6-20) Glucose Level 133 mg/dL (70-99) H Calcium Level 8.0 mg/dL (8.5-10.1) L Total Bilirubin 0.2 mg/dL (0.2-1.0) Aspartate Amino Transferase (AST) 26 U/L (15-37) Alanine Aminotransferase (ALT) 24 U/L (14-59) Alkaline Phosphatase 70 U/L (46-116) Total Protein 7.1 g/dL (6.4-8.2) Albumin 3.3 g/dL (3.4-5.0) L Albumin/Globulin Ratio 0.9 (1.0-1.7) L Urine Collection Type U cath Urine Color Yellow Urine Clarity Clear Urine pH 6.5 (<5.0-8.0) Urine Specific [place] 1.020 (1.000-1.030) Urine Protein 100 mg/dL (NEG-TRACE) Urine Glucose (UA) 100 mg/dL (NEG) Urine Ketones (Stick) Negative mg/dL (NEG) Urine Blood Negative (NEG) Urine Nitrite Positive (NEG) Urine Bilirubin Negative (NEG) Urine Urobilinogen Dipstick 0.2 mg/dL (0.2 mg/dL) Urine Leukocyte Esterase Negative (NEG) Urine RBC 0 /HPF (0-2) Urine WBC 5-10 /HPF (0-4) Urine Squamous Epithelial Cells Occ /LPF Urine Bacteria Many /HPF (0-FEW) Urine Hyaline Casts Occasional /HPF Urine Mucus Mod /LPF Laboratory Tests 08/08/19 02:33 Laboratory Tests 08/08/19 02:33 EKG: EKG: [] Radiology/Procedures: Radiology/Procedures: [] Course & Med Decision Making: Course & Med Decision Making Pertinent Labs and Imaging studies reviewed. (See chart for details) [] Dragon Disclaimer: Dragon Disclaimer: This electronic medical record was generated, in whole or in part, using a voice recognition dictation system. Departure Departure Impression: Primary Impression: UTI (urinary tract infection) Additional Impression: Overdose Disposition: ADMITTED INPATIENT Condition: STABLE Referrals: NO PCP (PCP) Justicifation of Admission Dx: Justifications for Admission: Justification of Admission Dx: N/A RUTHIE SCHROEDER DO Aug 08, 2019 04:18
[2019-08-08 04:22] LABS: AMPHETAMINE/METHAMPHETAMINE POS (NEG); BARBITURATES NEG (NEG); BENZODIAZEPINES POS (NEG); CANNABINOIDS NEG (NEG); COCAINE NEG (NEG); METHADONE NEG (NEG); OPIATES NEG (NEG); PHENCYCLIDINE NEG (NEG)
[2019-08-08 06:21] VITALS: BP 108/80
[2019-08-08 07:00] VITALS: BP 116/74
--- NOTE | 2019-08-08 08:48 | PDOC1 ---
History and Physical Date of Admission Date of Admission DATE: 08/08/19 TIME: 08:48 Source Source: Chart review, Patient History of Present Illness History of Present Illness Ms. Montgomery, is a 44 year old female represents for evaluation after being found by family with altered mental status. 2 ER visits same day, treated for narcotic overdose and discharged the day before after obs in the ER for 3 hours, , then left alone by family and found again unresponsive on the floor, she is sleepy this AM, but repsonsive and wants to eat and drink she reports a lot of anxiety and active grief, bereavement of her son who 6 months ago. EMS given anxiety Patient denies using any drugs after being discharged home. She only complaint is being cold. On exam she is A/O x4. Patient has no complaints of pain. Past Medical History Cardiovascular: HTN Pulmonary: Asthma, Bronchitis, COPD Psych: Anxiety, Addictions, Depression Rheumatologic: No pertinent hx Renal/: No pertinent hx Endocrine: No pertinent hx Past Surgical History Past Surgical History: Hernia Repair, Tubal Ligation, Hysterectomy, Other Family History Family History: Hypertension Social History Smoke: No ALCOHOL: rare Drugs: None, Other Current Problem List Problem List Problems Medical Problems: (1) Overdose Status: Acute (2) UTI (urinary tract infection) Status: Acute Current Medications Current Medications Current Medications Sodium Chloride 1,000 ml @ 1,000 mls/hr 1X ONCE IV Last administered on 08/08/19at 03:01; Start 08/08/19 at 03:00; Stop 08/08/19 at 03:59; Status DC Ceftriaxone Sodium (Rocephin) 1 gm 1X ONCE IVP Last administered on 08/08/19at 03:26; Start 08/08/19 at 04:00; Stop 08/08/19 at 04:01; Status DC Ceftriaxone Sodium (Rocephin) 1 gm Q24H IVP ; Start 08/09/19 at 06:00 Enoxaparin Sodium (Lovenox Per Pharmacy Prophylaxis Dosing) 1 each PRN DAILY PRN MC SEE COMMENTS; Start 08/08/19 at 08:30 Enoxaparin Sodium (Lovenox 40mg Syringe) 40 mg Q24H SQ ; Start 08/08/19 at 09:00 Active Scripts Active Clindamycin Hcl 300 Mg Capsule 1 Cap PO TID 7 Days Amoxicillin 875 Mg Tablet 1 Tab PO BID 7 Days Ventolin Hfa Inhaler (Albuterol Sulfate) 18 Gm Hfa.aer.ad 2 Puff INH Q4HRS Duoneb 0.5-3(2.5) Mg/3 Ml (Albuterol/Ipratropium) 3 Ml Ampul.neb 3 Ml NEB QID 60 Days Reported Minipress (Prazosin Hcl) 1 Mg Capsule 1 Mg PO QHS Lexapro (Escitalopram Oxalate) 20 Mg Tablet 30 Mg PO DAILY NICODERM CQ 21mg (Nicotine) 1 Each Patch.td24 1 Patch TP DAILY Xarelto (Rivaroxaban) 20 Mg Tablet 20 Mg PO DAILY Proair Hfa Inhaler (Albuterol Sulfate) 8.5 Gm Hfa.aer.ad 1 Puff INH PRN Q4-6HRS PRN Methadone Hcl 10 Mg Tablet 100 Mg PO DAILY Klonopin (Clonazepam) 1 Mg Tablet 1 Mg PO BID Allergies Allergies: Coded Allergies: No Known Drug Allergies (Unverified , 01/19/13) ROS General: YES: Fatigue; No: Chills, Night Sweats, Malaise, Appetite, Other PSYCHOLOGICAL ROS: YES: Anxiety, Sleep disturbances; No: Behavioral Disorder, Concentration difficultie, Decreased libido, Depression, Disorientation, Hallucinations, Hostility, Irritablity, Memory difficulties, Mood Swings, Obsessive thoughts, Physical abuse, Sexual abuse, Suicidal ideation, Other Eyes: No Blurry vision, No Decreased vision, No Double vision, No Dry eyes, No Excessive tearing, No Eye Pain, No Itchy Eyes, No Loss of vision, No Photophobia, No Scotomata, No Uses contacts, No Uses glasses, No Other HEENT: No: Heacaches, Visual Changes, Hearing change, Nasal congestion, Nasal discharge, Oral lesions, Sinus pain, Sore Throat, Epistaxis, Sneezing, Snoring, Tinnitus, Vertigo, Vocal changes, Other Respiratory: No: Cough, Hemoptysis, Orthopnea, Pleuritic Pain, Shortness of breath, SOB with excertion, Sputum Changes, Stridor, Tachypnea, Wheezing, Other Cardiovascular: No Chest Pain, No Palpitations, No Orthopnea, No Paroxysmal Noc. Dyspnea, No Edema, No Lt Headedness, No Other Gastrointestinal: No Nausea, No Vomiting, No Abdominal Pain, No Diarrhea, No Constipation, No Melena, No Hematochezia, No Other Genitourinary: No Dysuria, No Frequency, No Incontinence, No Hematuria, No Retention, No Discharge, No Urgency, No Pain, No Flank Pain, No Other, No , No , No , No , No , No , No Musculoskeletal: No Gait Disturbance, No Joint Pain, No Joint Stiffness, No Joint Swelling, No Muscle Pain, No Muscular Weakness, No Pain In:, No Swelling In:, No Other Neurological: No Behavorial Changes, No Bowel/Bladder ControlChng, No C onfusion, No Dizziness, No Gait Disturbance, No Headaches, No Impaired Coord/balance, No Memory Loss, No Numbness/Tingling, No Seizures, No Speech Problems, No Tremors, No Visual Changes, No Weakness, No Other Skin: Yes Dry Skin; No Eczema, No Hair Changes, No Lumps, No Mole Changes, No Mottling, No Nail Changes, No Pruritus, No Rash, No Skin Lesion Changes, No Other, No Acne Physical Exam General: Alert, Oriented X3, Cooperative, mild distress HEENT: Atraumatic, PERRLA Lungs: Clear to auscultation Heart: S1S2, RRR, no thrills Abdomen: Normal bowel sounds, Soft Extremities: No cyanosis, No edema, Normal pulses Skin: No rashes, No significant lesion Neuro: Normal speech, Normal tone, Sensation intact Psych/Mental Status: Mental status NL, Mood NL Vitals Vitals Vital Signs Date Time Temp Pulse Resp B/P (MAP) Pulse Ox O2 Delivery O2 Flow Rate FiO2 08/08/19 07:00 96.8 77 9 116/74 (88) 1 Room Air 98.0 96.8 Labs Labs Laboratory Tests Test 08/08/19 02:33 08/08/19 02:45 White Blood Count 8.4 x10^3/uL (4.0-11.0) Red Blood Count 4.65 x10^6/uL (3.50-5.40) Hemoglobin 13.4 g/dL (12.0-15.5) Hematocrit 40.4 % (36.0-47.0) Mean Corpuscular Volume 87 fL (79-100) Mean Corpuscular Hemoglobin 29 pg (25-35) Mean Corpuscular Hemoglobin Concent 33 g/dL (31-37) Red Cell Distribution Width 13.5 % (11.5-14.5) Platelet Count 304 x10^3/uL (140-400) Neutrophils (%) (Auto) 69 % (31-73) Lymphocytes (%) (Auto) 22 % (24-48) Monocytes (%) (Auto) 3 % (0-9) Eosinophils (%) (Auto) 5 % (0-3) Basophils (%) (Auto) 1 % (0-3) Neutrophils # (Auto) 5.8 x10^3/uL (1.8-7.7) Lymphocytes # (Auto) 1.9 x10^3/uL (1.0-4.8) Monocytes # (Auto) 0.3 x10^3/uL (0.0-1.1) Eosinophils # (Auto) 0.4 x10^3/uL (0.0-0.7) Basophils # (Auto) 0.1 x10^3/uL (0.0-0.2) Sodium Level 138 mmol/L (136-145) Potassium Level 4.2 mmol/L (3.5-5.1) Chloride Level 100 mmol/L (98-107) Carbon Dioxide Level 31 mmol/L (21-32) Anion Gap 7 (6-14) Blood Urea Nitrogen 12 mg/dL (7-20) Creatinine 1.1 mg/dL (0.6-1.0) Estimated GFR (Cockcroft-Gault) 53.5 BUN/Creatinine Ratio 11 (6-20) Glucose Level 133 mg/dL (70-99) Calcium Level 8.0 mg/dL (8.5-10.1) Total Bilirubin 0.2 mg/dL (0.2-1.0) Aspartate Amino Transf (AST/SGOT) 26 U/L (15-37) Alanine Aminotransferase (ALT/SGPT) 24 U/L (14-59) Alkaline Phosphatase 70 U/L (46-116) Total Protein 7.1 g/dL (6.4-8.2) Albumin 3.3 g/dL (3.4-5.0) Albumin/Globulin Ratio 0.9 (1.0-1.7) Urine Collection Type U cath Urine Color Yellow Urine Clarity Clear Urine pH 6.5 (<5.0-8.0) Urine Specific [place] 1.020 (1.000-1.030) Urine Protein 100 mg/dL (NEG-TRACE) Urine Glucose (UA) 100 mg/dL (NEG) Urine Ketones (Stick) Negative mg/dL (NEG) Urine Blood Negative (NEG) Urine Nitrite Positive (NEG) Urine Bilirubin Negative (NEG) Urine Urobilinogen Dipstick 0.2 mg/dL (0.2 mg/dL) Urine Leukocyte Esterase Negative (NEG) Urine RBC 0 /HPF (0-2) Urine WBC 5-10 /HPF (0-4) Urine Squamous Epithelial Cells Occ /LPF Urine Bacteria Many /HPF (0-FEW) Urine Hyaline Casts Occasional /HPF Urine Mucus Mod /LPF Urine Opiates Screen Neg (NEG) Urine Methadone Screen Neg (NEG) Urine Barbiturates Neg (NEG) Urine Phencyclidine Screen Neg (NEG) Urine Amphetamine/Methamphetamine Pos (NEG) Urine Benzodiazepines Screen Pos (NEG) Urine Cocaine Screen Neg (NEG) Urine Cannabinoids Screen Neg (NEG) Urine Ethyl Alcohol Neg (NEG) Laboratory Tests Test 08/08/19 02:33 08/08/19 02:45 White Blood Count 8.4 x10^3/uL (4.0-11.0) Red Blood Count 4.65 x10^6/uL (3.50-5.40) Hemoglobin 13.4 g/dL (12.0-15.5) Hematocrit 40.4 % (36.0-47.0) Mean Corpuscular Volume 87 fL (79-100) Mean Corpuscular Hemoglobin 29 pg (25-35) Mean Corpuscular Hemoglobin Concent 33 g/dL (31-37) Red Cell Distribution Width 13.5 % (11.5-14.5) Platelet Count 304 x10^3/uL (140-400) Neutrophils (%) (Auto) 69 % (31-73) Lymphocytes (%) (Auto) 22 % (24-48) Monocytes (%) (Auto) 3 % (0-9) Eosinophils (%) (Auto) 5 % (0-3) Basophils (%) (Auto) 1 % (0-3) Neutrophils # (Auto) 5.8 x10^3/uL (1.8-7.7) Lymphocytes # (Auto) 1.9 x10^3/uL (1.0-4.8) Monocytes # (Auto) 0.3 x10^3/uL (0.0-1.1) Eosinophils # (Auto) 0.4 x10^3/uL (0.0-0.7) Basophils # (Auto) 0.1 x10^3/uL (0.0-0.2) Sodium Level 138 mmol/L (136-145) Potassium Level 4.2 mmol/L (3.5-5.1) Chloride Level 100 mmol/L (98-107) Carbon Dioxide Level 31 mmol/L (21-32) Anion Gap 7 (6-14) Blood Urea Nitrogen 12 mg/dL (7-20) Creatinine 1.1 mg/dL (0.6-1.0) Estimated GFR (Cockcroft-Gault) 53.5 BUN/Creatinine Ratio 11 (6-20) Glucose Level 133 mg/dL (70-99) Calcium Level 8.0 mg/dL (8.5-10.1) Total Bilirubin 0.2 mg/dL (0.2-1.0) Aspartate Amino Transf (AST/SGOT) 26 U/L (15-37) Alanine Aminotransferase (ALT/SGPT) 24 U/L (14-59) Alkaline Phosphatase 70 U/L (46-116) Total Protein 7.1 g/dL (6.4-8.2) Albumin 3.3 g/dL (3.4-5.0) Albumin/Globulin Ratio 0.9 (1.0-1.7) Urine Collection Type U cath Urine Color Yellow Urine Clarity Clear Urine pH 6.5 (<5.0-8.0) Urine Specific [place] 1.020 (1.000-1.030) Urine Protein 100 mg/dL (NEG-TRACE) Urine Glucose (UA) 100 mg/dL (NEG) Urine Ketones (Stick) Negative mg/dL (NEG) Urine Blood Negative (NEG) Urine Nitrite Positive (NEG) Urine Bilirubin Negative (NEG) Urine Urobilinogen Dipstick 0.2 mg/dL (0.2 mg/dL) Urine Leukocyte Esterase Negative (NEG) Urine RBC 0 /HPF (0-2) Urine WBC 5-10 /HPF (0-4) Urine Squamous Epithelial Cells Occ /LPF Urine Bacteria Many /HPF (0-FEW) Urine Hyaline Casts Occasional /HPF Urine Mucus Mod /LPF Urine Opiates Screen Neg (NEG) Urine Methadone Screen Neg (NEG) Urine Barbiturates Neg (NEG) Urine Phencyclidine Screen Neg (NEG) Urine Amphetamine/Methamphetamine Pos (NEG) Urine Benzodiazepines Screen Pos (NEG) Urine Cocaine Screen Neg (NEG) Urine Cannabinoids Screen Neg (NEG) Urine Ethyl Alcohol Neg (NEG) VTE Prophylaxis Ordered VTE Prophylaxis Devices: No VTE Pharmacological Prophylaxi: Yes Assessment/Plan Assessment/Plan overdose, possible methadone, Hx narcotic abuse, narcan given with good results x2 UTI, acute encephalopathy Benzo and Meth abuse, recent, narcotic abuse a few days ago, oxycontin, anxiety and depression, active and prolonged grief, from almost 6 months ago, Justicifation of Admission Dx: Justifications for Admission: Justification of Admission Dx: N/A TRISH BRAY MD Aug 08, 2019 08:48
[2019-08-08] MEDS: ENOXAPARIN 40 MG/0.4 ML SYRINGE. SQ SCH (09:08)
[2019-08-08] MEDS ORDERED: diphenhydrAMINE 50 MG/ML VIAL IVP ONE (09:15)
[2019-08-08 10:47] VITALS: BP 127/79
--- NOTE | 2019-08-08 13:04 | NUR ---
SS following for discharge planning. SS reviewed pt chart and discussed with pt RN. Pt is from home and is currently requiring oxygen. Pt on IV Rocephin. Pt positive for Methamphetamines and Benzo's. PAT team referral made for assessment and recommendations. Pt has open case with [facility] for MDD, HOLLI, PTSD, and Agoraphobia. Pt to follow up with services at [place] when medically stable for discharge. Pt's treatment team notified. Pt will discharge to home when ready. SS will continue to follow for discharge planning.
[2019-08-08 14:45] VITALS: BP 124/81
--- NOTE | 2019-08-08 17:44 | NUR ---
PT SPOKE TO BRIAN FROM PAT TEAM WHO COORDINATED WITH THE [facility] REGARDING THE PTS STATUS.
--- NOTE | 2019-08-08 17:49 | NUR ---
PT WAS ABLE TO VERBALIZE THAT SHE WAS NOT CONFIDENTIAL AND DID NOT WISH TO BE. SPOKE WITH THE PT IN DEPTH IN REGARDS TO FEELING SAFE WHERE SHE LIVES AND WHO SHE LIVES WITH AND THAT THERE ARE NOT ANY OTHER ISSUES THAT WOULD MAKE HER CONFIDENTIAL. PT STATED SHE NEVER ASKED TO BE AND WANTS HER TO BE ABLE TO VISIT.
[2019-08-08 19:27] VITALS: BP 140/87
--- NOTE | 2019-08-08 21:01 | PDOC1 ---
History & Psych Evaluation Date of Admission: Date of Admission DATE: 08/08/19 TIME: 20:34 Source: Source: Caregiver, Chart review, Patient Identification: Identification She is a 44-year-old female with history of depression and anxiety admitted with overdose Chief Complaint: Chief Complaint Opiate overdose, depression, anxiety, bereavement History of Present Illness: HPI: She is a 44-year-old female admitted with altered mental status. She was brought in ER after found by family with altered mental status. She had 2 consecutive visits same day to ER. Reportedly, she came with narcotic overdose treated for it and sent back home after observation in ER. However, she found unresponsive again on the floor. Upon interview, she appears cooperative, confused, and anxious. She is under grief due to loss of her son in February 2019 by accidental overdose on opioids. Stating, today she took to 30 mg tablets of OxyContin and regular Klonopin which has been prescribed to her. States, she would know that it could be so toxic for her. She categorically denies any suicidal attempt or intentions to take her life. States, she has grandchildren from her son wanting to live for them. She has previous history of depression and anxiety following [facility] for mental health care. She denies previous history of suicidal attempt or serious suicidal thoughts. She denies that, when she was discharged from ER she did not take any opioid pain medication. She is anxious and worried that why she got unconscious again. Presently denies suicidal or homicidal thoughts. No history of psychotic break, auditory or visual hallucinations. Denies history of bipolar mood disorder, charlette or hypomania. Denies recent opioid abuse. She has previous history of opioid use disorder. Remained on methadone maintenance therapy for 3 years. She is off of methadone for a year. She is endorsing recent use of methamphetamine couple of times. Past Psychiatric History: Previously diagnosed with major depressive disorder, anxiety, and opioid use disorder. Denies previous history of suicidal attempt. Denies history of psychiatric hospital admissions. Methadone maintenance therapy for 3 years. For the last 1 year she is off of methadone. Past Medical History: HTN Asthma Bronchitis COPD Depression and anxiety Family History: Psychiatric family history is significant for anxiety in mother. No history of suicide in family. Social History: Social History: She lives with her , parents and grandparents. Her 21-year-old son in February 2019 by accidental overdose of opioids. Denies alcohol abuse. Denies legal issues. History of substance use as above Current Medications: Current Medications Current Medications Medications (Trade) Dose Ordered Sig/Georgette Start Time Stop Time Status Last Admin Dose Admin Ceftriaxone Sodium (Rocephin) 1 gm Q24H 08/09/19 06:00 Diphenhydramine HCl (Benadryl) 50 mg 1X ONCE 08/08/19 09:15 08/08/19 09:16 DC 08/08/19 09:09 50 MG Enoxaparin Sodium (Lovenox 40mg Syringe) 40 mg Q24H 08/08/19 09:00 08/08/19 09:08 40 MG Enoxaparin Sodium (Lovenox Per Pharmacy Prophylaxis Dosing) 1 each PRN DAILY PRN 08/08/19 08:30 Lactobacillus Rhamnosus (Culturelle) 1 cap BID 08/08/19 21:00 Sodium Chloride 1,000 ml @ 1,000 mls/hr 1X ONCE 08/08/19 03:00 08/08/19 03:59 DC 08/08/19 03:01 1,000 MLS/HR Allergies: Allergies: Coded Allergies: No Known Drug Allergies (Unverified , 01/19/13) Mental Status Examination: Mental Status Examination female, appears her stated age, fairly groomed, fairly nourished Appears confused, difficult to focus Alert and oriented Denies auditory or visual hallucinations. No abnormal perception. Thought process linear and goal-directed. Denies suicidal or homicidal thoughts. Mood is sad Affect is dysthymic Insight is fair Judgment is fair Impulse control is fair Attention span and concentration fair Recent and remote memory intact. ROS: 12 point review of system is otherwise negative except for confusion, anxiety, depression, bereavement and overdose of opioid. Physical Exam: Refer to Physician's note. MEDICAL ORDERLY: No focal deficit MSK: No EPS, TDK, or abnormal involuntary movements Vitals: Vitals Vital Signs Date Time Temp Pulse Resp B/P (MAP) Pulse Ox O2 Delivery O2 Flow Rate FiO2 08/08/19 19:27 98.3 72 14 140/87 (104) 94 Room Air 98.3 08/08/19 08:00 1.0 Labs: Labs Laboratory Tests Test 08/08/19 02:33 08/08/19 02:45 White Blood Count 8.4 x10^3/uL (4.0-11.0) Red Blood Count 4.65 x10^6/uL (3.50-5.40) Hemoglobin 13.4 g/dL (12.0-15.5) Hematocrit 40.4 % (36.0-47.0) Mean Corpuscular Volume 87 fL (79-100) Mean Corpuscular Hemoglobin 29 pg (25-35) Mean Corpuscular Hemoglobin Concent 33 g/dL (31-37) Red Cell Distribution Width 13.5 % (11.5-14.5) Platelet Count 304 x10^3/uL (140-400) Neutrophils (%) (Auto) 69 % (31-73) Lymphocytes (%) (Auto) 22 % (24-48) Monocytes (%) (Auto) 3 % (0-9) Eosinophils (%) (Auto) 5 % (0-3) Basophils (%) (Auto) 1 % (0-3) Neutrophils # (Auto) 5.8 x10^3/uL (1.8-7.7) Lymphocytes # (Auto) 1.9 x10^3/uL (1.0-4.8) Monocytes # (Auto) 0.3 x10^3/uL (0.0-1.1) Eosinophils # (Auto) 0.4 x10^3/uL (0.0-0.7) Basophils # (Auto) 0.1 x10^3/uL (0.0-0.2) Sodium Level 138 mmol/L (136-145) Potassium Level 4.2 mmol/L (3.5-5.1) Chloride Level 100 mmol/L (98-107) Carbon Dioxide Level 31 mmol/L (21-32) Anion Gap 7 (6-14) Blood Urea Nitrogen 12 mg/dL (7-20) Creatinine 1.1 mg/dL (0.6-1.0) Estimated GFR (Cockcroft-Gault) 53.5 BUN/Creatinine Ratio 11 (6-20) Glucose Level 133 mg/dL (70-99) Calcium Level 8.0 mg/dL (8.5-10.1) Total Bilirubin 0.2 mg/dL (0.2-1.0) Aspartate Amino Transf (AST/SGOT) 26 U/L (15-37) Alanine Aminotransferase (ALT/SGPT) 24 U/L (14-59) Alkaline Phosphatase 70 U/L (46-116) Total Protein 7.1 g/dL (6.4-8.2) Albumin 3.3 g/dL (3.4-5.0) Albumin/Globulin Ratio 0.9 (1.0-1.7) Urine Collection Type U cath Urine Color Yellow Urine Clarity Clear Urine pH 6.5 (<5.0-8.0) Urine Specific [place] 1.020 (1.000-1.030) Urine Protein 100 mg/dL (NEG-TRACE) Urine Glucose (UA) 100 mg/dL (NEG) Urine Ketones (Stick) Negative mg/dL (NEG) Urine Blood Negative (NEG) Urine Nitrite Positive (NEG) Urine Bilirubin Negative (NEG) Urine Urobilinogen Dipstick 0.2 mg/dL (0.2 mg/dL) Urine Leukocyte Esterase Negative (NEG) Urine RBC 0 /HPF (0-2) Urine WBC 5-10 /HPF (0-4) Urine Squamous Epithelial Cells Occ /LPF Urine Bacteria Many /HPF (0-FEW) Urine Hyaline Casts Occasional /HPF Urine Mucus Mod /LPF Urine Opiates Screen Neg (NEG) Urine Methadone Screen Neg (NEG) Urine Barbiturates Neg (NEG) Urine Phencyclidine Screen Neg (NEG) Urine Amphetamine/Methamphetamine Pos (NEG) Urine Benzodiazepines Screen Pos (NEG) Urine Cocaine Screen Neg (NEG) Urine Cannabinoids Screen Neg (NEG) Urine Ethyl Alcohol Neg (NEG) Laboratory Tests Test 08/08/19 02:33 08/08/19 02:45 White Blood Count 8.4 x10^3/uL (4.0-11.0) Red Blood Count 4.65 x10^6/uL (3.50-5.40) Hemoglobin 13.4 g/dL (12.0-15.5) Hematocrit 40.4 % (36.0-47.0) Mean Corpuscular Volume 87 fL (79-100) Mean Corpuscular Hemoglobin 29 pg (25-35) Mean Corpuscular Hemoglobin Concent 33 g/dL (31-37) Red Cell Distribution Width 13.5 % (11.5-14.5) Platelet Count 304 x10^3/uL (140-400) Neutrophils (%) (Auto) 69 % (31-73) Lymphocytes (%) (Auto) 22 % (24-48) Monocytes (%) (Auto) 3 % (0-9) Eosinophils (%) (Auto) 5 % (0-3) Basophils (%) (Auto) 1 % (0-3) Neutrophils # (Auto) 5.8 x10^3/uL (1.8-7.7) Lymphocytes # (Auto) 1.9 x10^3/uL (1.0-4.8) Monocytes # (Auto) 0.3 x10^3/uL (0.0-1.1) Eosinophils # (Auto) 0.4 x10^3/uL (0.0-0.7) Basophils # (Auto) 0.1 x10^3/uL (0.0-0.2) Sodium Level 138 mmol/L (136-145) Potassium Level 4.2 mmol/L (3.5-5.1) Chloride Level 100 mmol/L (98-107) Carbon Dioxide Level 31 mmol/L (21-32) Anion Gap 7 (6-14) Blood Urea Nitrogen 12 mg/dL (7-20) Creatinine 1.1 mg/dL (0.6-1.0) Estimated GFR (Cockcroft-Gault) 53.5 BUN/Creatinine Ratio 11 (6-20) Glucose Level 133 mg/dL (70-99) Calcium Level 8.0 mg/dL (8.5-10.1) Total Bilirubin 0.2 mg/dL (0.2-1.0) Aspartate Amino Transf (AST/SGOT) 26 U/L (15-37) Alanine Aminotransferase (ALT/SGPT) 24 U/L (14-59) Alkaline Phosphatase 70 U/L (46-116) Total Protein 7.1 g/dL (6.4-8.2) Albumin 3.3 g/dL (3.4-5.0) Albumin/Globulin Ratio 0.9 (1.0-1.7) Urine Collection Type U cath Urine Color Yellow Urine Clarity Clear Urine pH 6.5 (<5.0-8.0) Urine Specific [place] 1.020 (1.000-1.030) Urine Protein 100 mg/dL (NEG-TRACE) Urine Glucose (UA) 100 mg/dL (NEG) Urine Ketones (Stick) Negative mg/dL (NEG) Urine Blood Negative (NEG) Urine Nitrite Positive (NEG) Urine Bilirubin Negative (NEG) Urine Urobilinogen Dipstick 0.2 mg/dL (0.2 mg/dL) Urine Leukocyte Esterase Negative (NEG) Urine RBC 0 /HPF (0-2) Urine WBC 5-10 /HPF (0-4) Urine Squamous Epithelial Cells Occ /LPF Urine Bacteria Many /HPF (0-FEW) Urine Hyaline Casts Occasional /HPF Urine Mucus Mod /LPF Urine Opiates Screen Neg (NEG) Urine Methadone Screen Neg (NEG) Urine Barbiturates Neg (NEG) Urine Phencyclidine Screen Neg (NEG) Urine Amphetamine/Methamphetamine Pos (NEG) Urine Benzodiazepines Screen Pos (NEG) Urine Cocaine Screen Neg (NEG) Urine Cannabinoids Screen Neg (NEG) Urine Ethyl Alcohol Neg (NEG) Diagnosis: Diagnosis: 1. Major depressive disorder, recurrent, moderate 2. Unspecified anxiety disorder 3. Accidental opioid use in combination with benzo. 4. Bereavement Assessment: She is a female with history of depression and anxiety admitted with opioid overdose. Apparently, she denies suicidal intent or complicated bereavement where she wanted to join her son. Endorsing protective factors including her grandchildren of disease and her immediate family. She is afraid of respiratory depression that happened with combination of narcotics and benzodiazepine. Appears insightful about her situation and severity. However, informed her that keno writer would like to talk to her or other household to determine safety prior to discharge. She denied access to firearms. Plan: 1-patient reportedly compliant with psychotropic medications. She is informed to continue her psychotropic medications as is. 2educated regarding adverse outcomes including respiratory depression with combination of opioids and benzodiazepines. She expressed understanding. 3requesting social insurance administrator to obtain contact number of her . Dragline Operator Helper would like to talk to to ensure safety plan prior to discharge. 4requesting social work to set up appointments at [facility] for follow-up. Thank you for involving inpatient care with GURPREET CARRION MD Aug 08, 2019 21:01
[2019-08-08] MEDS: LACTOBACILLUS RHAMNOSUS GG 1 CAPSULE. PO SCH (21:12)
[2019-08-08 22:14] VITALS: BP 143/77
[2019-08-09 02:30] VITALS: BP 139/89
[2019-08-09] MEDS ORDERED: cefTRIAXone IV Push 1 GM VIAL. IVP SCH (06:00)
[2019-08-09 07:00] VITALS: BP 153/89
[2019-08-09] MEDS: LACTOBACILLUS RHAMNOSUS GG 1 CAPSULE. PO SCH (09:49)
[2019-08-09] MEDS: ENOXAPARIN 40 MG/0.4 ML SYRINGE. SQ SCH (09:50)
[2019-08-09 10:55] VITALS: BP 152/89
[2019-08-09] MEDS ORDERED: AMOX1TAB61 PO (13:49)
--- NOTE | 2019-08-09 13:57 | PDOC3 ---
Discharge Summary Visit Information Date of Admission: Aug 08, 2019 Date of Discharge: Aug 09, 2019 Final Diagnosis 1. substant abuse disorder, THC, meth, opiates, 2. Major depressive disorder, recurrent, moderate 3. Unspecified anxiety disorder 4 Accidental opioid use in combination with benzo. 5. UTI, metabolic encephalopathy 5. marked Bereavement Problems Medical Problems: (1) Overdose Status: Acute (2) UTI (urinary tract infection) Status: Acute Brief Hospital Course Allergies Allergies Coded Allergies Type Severity Reaction Last Updated Verified No Known Drug Allergies 01/19/13 No Vital Signs Vital Signs Date Time Temp Pulse Resp B/P (MAP) Pulse Ox O2 Delivery O2 Flow Rate FiO2 08/09/19 10:55 98.7 66 12 152/89 (110) 96 Room Air 98.7 08/08/19 08:00 1.0 Lab Results Laboratory Tests Test 08/08/19 02:33 08/08/19 02:45 White Blood Count 8.4 x10^3/uL (4.0-11.0) Red Blood Count 4.65 x10^6/uL (3.50-5.40) Hemoglobin 13.4 g/dL (12.0-15.5) Hematocrit 40.4 % (36.0-47.0) Mean Corpuscular Volume 87 fL (79-100) Mean Corpuscular Hemoglobin 29 pg (25-35) Mean Corpuscular Hemoglobin Concent 33 g/dL (31-37) Red Cell Distribution Width 13.5 % (11.5-14.5) Platelet Count 304 x10^3/uL (140-400) Neutrophils (%) (Auto) 69 % (31-73) Lymphocytes (%) (Auto) 22 % (24-48) Monocytes (%) (Auto) 3 % (0-9) Eosinophils (%) (Auto) 5 % (0-3) Basophils (%) (Auto) 1 % (0-3) Neutrophils # (Auto) 5.8 x10^3/uL (1.8-7.7) Lymphocytes # (Auto) 1.9 x10^3/uL (1.0-4.8) Monocytes # (Auto) 0.3 x10^3/uL (0.0-1.1) Eosinophils # (Auto) 0.4 x10^3/uL (0.0-0.7) Basophils # (Auto) 0.1 x10^3/uL (0.0-0.2) Sodium Level 138 mmol/L (136-145) Potassium Level 4.2 mmol/L (3.5-5.1) Chloride Level 100 mmol/L (98-107) Carbon Dioxide Level 31 mmol/L (21-32) Anion Gap 7 (6-14) Blood Urea Nitrogen 12 mg/dL (7-20) Creatinine 1.1 mg/dL (0.6-1.0) Estimated GFR (Cockcroft-Gault) 53.5 BUN/Creatinine Ratio 11 (6-20) Glucose Level 133 mg/dL (70-99) Calcium Level 8.0 mg/dL (8.5-10.1) Total Bilirubin 0.2 mg/dL (0.2-1.0) Aspartate Amino Transf (AST/SGOT) 26 U/L (15-37) Alanine Aminotransferase (ALT/SGPT) 24 U/L (14-59) Alkaline Phosphatase 70 U/L (46-116) Total Protein 7.1 g/dL (6.4-8.2) Albumin 3.3 g/dL (3.4-5.0) Albumin/Globulin Ratio 0.9 (1.0-1.7) Urine Collection Type U cath Urine Color Yellow Urine Clarity Clear Urine pH 6.5 (<5.0-8.0) Urine Specific [place] 1.020 (1.000-1.030) Urine Protein 100 mg/dL (NEG-TRACE) Urine Glucose (UA) 100 mg/dL (NEG) Urine Ketones (Stick) Negative mg/dL (NEG) Urine Blood Negative (NEG) Urine Nitrite Positive (NEG) Urine Bilirubin Negative (NEG) Urine Urobilinogen Dipstick 0.2 mg/dL (0.2 mg/dL) Urine Leukocyte Esterase Negative (NEG) Urine RBC 0 /HPF (0-2) Urine WBC 5-10 /HPF (0-4) Urine Squamous Epithelial Cells Occ /LPF Urine Bacteria Many /HPF (0-FEW) Urine Hyaline Casts Occasional /HPF Urine Mucus Mod /LPF Urine Opiates Screen Neg (NEG) Urine Methadone Screen Neg (NEG) Urine Barbiturates Neg (NEG) Urine Phencyclidine Screen Neg (NEG) Urine Amphetamine/Methamphetamine Pos (NEG) Urine Benzodiazepines Screen Pos (NEG) Urine Cocaine Screen Neg (NEG) Urine Cannabinoids Screen Neg (NEG) Urine Ethyl Alcohol Neg (NEG) Brief Hospital Course Ms. Montgomery is a 44 old female admit with confusion, obtunded, needed narcan a few times, had a UTI, recent substance abuse, prior Discharge Information Condition at Discharge: Improved Follow Up: Weeks Disposition/Orders: D/C to Home Scheduled Albuterol Sulfate (Ventolin Hfa Inhaler) 18 Gm Hfa.aer.ad, 2 PUFF INH Q4HRS for FOR ASTHMA, #1 Ref 0 Prescribed by: Catrina Blackbunr APRN on 08/10/17 2136 Last Action: Converted on 08/09/19 1351 by TRISH BRAY Amoxicillin (Amoxicillin) 875 Mg Tablet, 1 TAB PO BID for 7 Days, #14 Prescribed by: THUY GALVEZ APRN on 07/12/18 1602 Amoxicillin/Potassium Clav (Augmentin 875-125 Tablet) 1 Each Tablet, 1 TAB PO BID for UTI for 5 Days, #10 Ref 0 Prescribed by: TRISH BRAY on 08/09/19 1349 Clindamycin Hcl (Clindamycin Hcl) 300 Mg Capsule, 1 CAP PO TID for 7 Days, #21 Prescribed by: THUY MAHAJAN D.O. on 07/23/18 0522 Clonazepam (Klonopin) 1 Mg Tablet, 1 MG PO BID, (Reported) Entered as Reported by: GERSON JONES on 07/18/16 0105 Escitalopram Oxalate (Lexapro) 20 Mg Tablet, 30 MG PO DAILY for ANTI-DEPRESSANT, Ref 0 (Reported) Entered as Reported by: MELISSA SILVER on 10/04/17 2345 Last Action: Converted on 08/09/19 1351 by TRISH BRAY Ipratropium/Albuterol Sulfate (Duoneb 0.5-3(2.5) Mg/3 Ml) 3 Ml Ampul.neb, 3 ML NEB QID for 60 Days, #240 Prescribed by: LUPE FONSECA on 01/09/17 1328 Methadone Hcl (Methadone Hcl) 10 Mg Tablet, 100 MG PO DAILY, (Reported) Entered as Reported by: GERSON JONES on 07/18/16 0105 Nicotine (NICODERM CQ 21mg) 1 Each Patch.td24, 1 PATCH TP DAILY, #28 Ref 1 (Reported) Entered as Reported by: SAL CABALLERO on 05/06/172022 Prazosin Hcl (Minipress) 1 Mg Capsule, 1 MG PO QHS, (Reported) Entered as Reported by: MELISSA SILVER on 10/04/177 Rivaroxaban (Xarelto) 20 Mg Tablet, 20 MG PO DAILY, (Reported) Entered as Reported by: JENA SWANSON on 01/27/17 2306 Last Action: Converted on 08/09/19 1351 by TRISH BRAY Scheduled PRN Albuterol Sulfate (Proair Hfa Inhaler) 8.5 Gm Hfa.aer.ad, 1 PUFF INH PRN Q4-6HRS PRN for SHORTNESS OF BREATH, Ref 0 (Reported) Entered as Reported by: GERSON JONES on 07/18/16 0105 Justicifation of Admission Dx: Justifications for Admission: Justification of Admission Dx: N/A TRISH BRAY MD Aug 09, 2019 13:57
--- NOTE | 2019-08-09 14:50 | NUR ---
Discharge Note: DREA JOHNSTON [facility] Discharge instructions and discharge home medications reviewed with Patient and a copy given. All questions have been answered and understanding verbalized. The following instructions and handouts were given: malnutrition, overdose, amoxicillin Patient discharged to home with self care via wheelchair.
[2019-08-09] MEDS ORDERED: ALBUTEROL SULFATE 2.5 MG/3 ML NEBU. NEB SCH (16:00)
[2019-08-09] MEDS ORDERED: NON FORMULARY ITEM (Albuterol Sulfate (Ventolin Hfa Inhaler) 2 PUFF) INH SCH (16:00)
[2019-08-09] MEDS ORDERED: RIVAROXABAN 10 MG TABLET. PO SCH (17:00)
[2019-08-10] MEDS ORDERED: CITALOPRAM 20 MG TABLET. PO SCH (09:00)
== END 2019-08-09 15:00 | disposition home or self-care (01) ==
LOC: ER 02:15 → EEVIPCON 02:15 → 2 SOUTH 05:00 → EEVIPCON 05:00 → 2 SOUTH 06:45
PROVIDERS: ADMIT Internal Medicine; ATTEND Internal Medicine
DX: T40.2X1A Poisoning by other opioids, accidental (unintentional), initial encounter (principal); N39.0 Urinary tract infection, site not specified; F41.9 Anxiety disorder, unspecified; F33.1 Major depressive disorder, recurrent, moderate; F17.200 Nicotine dependence, unspecified, uncomplicated; G93.41 Metabolic encephalopathy; I10 Essential (primary) hypertension; J44.9 Chronic obstructive pulmonary disease, unspecified; Z90.710 Acquired absence of both cervix and uterus; Z98.51 Tubal ligation status; Z98.890 Other specified postprocedural states
CPT/HCPCS: 36415; 80053; 80307; 81001; 85025; 87086; 96361; 96372; 96374; 96375; 96376; 99284; G0378; J0696; J1200; J1650; J7030; G0379

== ENCOUNTER 2020-09-01 16:22 | Emergency (ER) | payer MEDICAID ==
[~2020-09-01 16:22] MED LIST changes: -CLIN300C8 PO; +CLIN300C9 PO; -LISI-338 PO; +LISI-517 PO; +SERT-267 PO; -SERT50TA8 PO
== END 2020-09-01 17:52 | disposition left against medical advice (07) ==
LOC: ER 16:22
DX: R10.9 Unspecified abdominal pain (principal); Z53.21 Procedure and treatment not carried out due to patient leaving prior to being seen by health care provider

== ENCOUNTER 2021-01-04 23:08 | Emergency (ER) | payer MEDICAID ==
[~2021-01-04] VITALS: Ht 167.6 cm; Wt 86.4 kg
[~2021-01-04 23:08] MED LIST changes: +CLIN-94 PO; -CLIN300C9 PO; +CYCL10TA19 PO; -CYCL10TA2 PO; -DOXY100C2 PO; +DOXY100C3 PO; -LISI-517 PO; +LISI5TAB15 PO; +METH-572 PO; -METH10TA2 PO
[2021-01-04] MEDS ORDERED: ONDANSETRON ODT 4 MG TAB.RAPDIS. PO ONE (23:30)
[2021-01-04] MEDS ORDERED: MORPHINE SULFATE 4 MG/ML INJ. IM ONE (23:30)
--- NOTE | 2021-01-05 00:23 | RAD ---
Exam: CT abdomen/pelvis without intravenous contrast Indication: Abdominal pain, ventral hernia Comparison: None Technique: Helical CT imaging performed of the abdomen and pelvis without the use of intravenous cont rast. Sagittal and coronal reformats were obtained. One or more of the following individualized dose reduction techniques were utilized for this examinat ion: 1. Automated exposure control 2. Adjustment of the mA and/or kV according to patient size 3. Use of iterative reconstruction technique. Findings: Inherently limited evaluation without intravenous contrast. Lower chest: Lung bases are clear. The heart is normal in size. Liver: Liver is mildly enlarged measuring 21 cm craniocaudally. Normal hepatic attenuation. Gallbladder/Biliary Tree: Normal. Pancreas: Normal Spleen: Normal. Adrenal Glands: Normal. Kidneys/Ureters/Bladder: Kidneys are normal in size. No nephrolithiasis or hydronephrosis. Ureters an d bladder are normal. Reproductive Organs: Uterus is surgically absent. No adnexal mass. Stomach, small bowel, and colon: The stomach, small bowel, colon, and appendix are normal. Vasculature: No aortic aneurysm. Mild calcified aortoiliac atherosclerosis. Lymph Nodes: There is no lymphadenopathy. Peritoneum and retroperitoneum: No free fluid or free air. Bones: No acute osseous abnormality. There is degenerative disc disease at L5-S1 and facet arthrosis at L4-L5 and L5-S1. Miscellaneous: There is a fat-containing ventral hernia. IMPRESSION: 1. No acute abnormality. 2. Fat-containing ventral hernia. 3. Mild hepatomegaly. Electronically signed by: Viv Malik MD (01/05/2021 12:20 AM) [facility]
--- NOTE | 2021-01-05 00:31 | PHYS DOC ---
Past Medical History Past Medical History: Anxiety, Asthma, COPD, Depression, DVT, Pneumonia Additional Past Medical Histor: back pain, PE, pneumonia, opioid dependency - methadone program (LIENKATELYNGUILLERMINA Maldonado RED CAP) Past Surgical History: Hysterectomy, Tubal ligation, Other Additional Past Surgical Histo: UMBILICAL HERNIA, BLADDER SLING (KASSANDRAGUILLERMINA Maldonado RED CAP) Smoking Status: Current Every Day Smoker Alcohol Use: None Drug Use: Opiates (GUILLERMINA HURLEY RED CAP) General Adult EDM: Chief Complaint: MULTIPLE COMPLAINTS HPI: HPI: Patient is a 45 year old female presenting to the ED today complaining of 7 out of 10 sharp intermittent upper abdominal pain from a ventral hernia that she has had for the last 9 months. Patient states she was supposed to have surgery on 8 9 months ago at [facility] but she developed a DVT and was put on Eliquis. She states she is supposed to follow-up and see if they can reschedule the surgery. She states today she tried taking her evening pills and they got stuck in her chest and believes this is due to the ventral hernia. Patient denies any difficulty breathing or swallowing. Denies any fever. Denies any vomiting or diarrhea. Denies anything specific and exacerbating or relieving her pain (LIENKATELYNGUILLERMINA Maldonado RED CAP) Review of Systems: Review of Systems: Constitutional: Denies fever or chills. [] Eyes: Denies change in visual acuity. [] HENT: Denies nasal congestion or sore throat. [] Respiratory: Denies cough or shortness of breath. [] Cardiovascular: Denies chest pain or edema. [] GI: Reports abdominal pain, denies nausea, vomiting, bloody stools or diarrhea. [] : Denies dysuria. [] Musculoskeletal: Denies back pain or joint pain. [] Integument: Denies rash. [] Neurologic: Denies headache, focal weakness or sensory changes. [] ] Psychiatric: Denies depression or anxiety. [] (GUILLERMINA HURELY RED CAP) Heart Score: C/O Chest Pain: N/A Risk Factors: Risk Factors: DM, Current or recent (<one month) smoker, HTN, HLP, family history of CAD, obesity. Risk Scores: Score 0 - 3: 2.5% MACE over next 6 weeks - Discharge Home Score 4 - 6: 20.3% MACE over next 6 weeks - Admit for Clinical Observation Score 7 - 10: 72.7% MACE over next 6 weeks - Early Invasive Strategies (GUILLERMINA HURLEY RED CAP) Current Medications: Current Medications Medications (Trade) Dose Ordered Sig/Georgette Start Time Stop Time Status Last Admin Dose Admin Morphine Sulfate (Morphine Sulfate) 4 mg 1X ONCE 01/04/21 23:30 01/04/21 23:33 DC 01/04/21 23:56 4 MG Ondansetron HCl (Zofran Odt) 4 mg 1X ONCE 01/04/21 23:30 01/04/21 23:33 DC 01/04/21 23:56 4 MG (GUILLERMINA HURLEY RED CAP) Allergies: Allergies: Allergies Coded Allergies Type Severity Reaction Last Updated Verified No Known Drug Allergies 01/19/13 No (GUILLERMINA HURLYE RED CAP) Physical Exam: PE: Constitutional: Well developed, well nourished, no acute distress, non-toxic appearance. [] HENT: Normocephalic, atraumatic, bilateral external ears normal, oropharynx moist, no oral exudates, nose normal. [] Eyes: PERRLA, EOMI, conjunctiva normal, no discharge. [] Neck: Normal range of motion, no tenderness, supple, no stridor. [] Cardiovascular:Heart rate regular rhythm, no murmur [] Lungs & Thorax: Bilateral breath sounds clear to auscultation [] Abdomen: Bowel sounds normal, soft, mild mid abdominal tenderness, no right upper quadrant or right lower quadrant tenderness, no masses, no pulsatile masses. [] Skin: Warm, dry, no erythema, no rash. [] Back: No tenderness, no CVA tenderness. [] Extremities: No tenderness, no cyanosis, no clubbing, ROM intact, no edema. [] Neurologic: Alert and oriented X 3, normal motor function, normal sensory function, no focal deficits noted. [] Psychologic: Affect normal, judgement normal, mood normal. [] (GUILLERMINA HURLEY RED CAP) Current Patient Data: Vital Signs: Vital Signs Date Time Temp Pulse Resp B/P (MAP) Pulse Ox O2 Delivery O2 Flow Rate FiO2 01/04/21 23:56 20 99 Room Air 01/04/21 23:20 98.7 86 151/102 (118) 98.7 (GUILLERMINA HURLEY Sean RED CAP) EKG: EKG: [] (GUILLERMINA HURLEY Sean RED CAP) Radiology/Procedures: Radiology/Procedures: []PROCEDURE: CT ABDOMEN PELVIS WO CONTRAST Exam: CT abdomen/pelvis without intravenous contrast Indication: Abdominal pain, ventral hernia Comparison: None Technique: Helical CT imaging performed of the abdomen and pelvis without the use of intravenous contrast. Sagittal and coronal reformats were obtained. One or more of the following individualized dose reduction techniques were utilized for this examination: 1. Automated exposure control 2. Adjustment of the mA and/or kV according to patient size 3. Use of iterative reconstruction technique. Findings: Inherently limited evaluation without intravenous contrast. Lower chest: Lung bases are clear. The heart is normal in size. Liver: Liver is mildly enlarged measuring 21 cm craniocaudally. Normal hepatic attenuation. Gallbladder/Biliary Tree: Normal. Pancreas: Normal Spleen: Normal. Adrenal Glands: Normal. Kidneys/Ureters/Bladder: Kidneys are normal in size. No nephrolithiasis or hydronephrosis. Ureters and bladder are normal. Reproductive Organs: Uterus is surgically absent. No adnexal mass. Stomach, small bowel, and colon: The stomach, small bowel, colon, and appendix are normal. Vasculature: No aortic aneurysm. Mild calcified aortoiliac atherosclerosis. Lymph Nodes: There is no lymphadenopathy. Peritoneum and retroperitoneum: No free fluid or free air. Bones: No acute osseous abnormality. There is degenerative disc disease at L5-S1 and facet arthrosis at L4-L5 and L5-S1. Miscellaneous: There is a fat-containing ventral hernia. IMPRESSION: 1. No acute abnormality. 2. Fat-containing ventral hernia. 3. Mild hepatomegaly. Electronically signed by: Jessica Malik MD (01/05/2021 12:20 AM) [facility] DICTATED and SIGNED BY: JESSICA MALIK MD DATE: 01/05/21 [id number] (GUILLERMINA HURLEY RED CAP) Course & Med Decision Making: Course & Med Decision Making Pertinent Labs and Imaging studies reviewed. (See chart for details) This is a 45-year-old female patient presented to the ED today complaining of mid abdominal pain from a ventral hernia she has had for the last [address] of the abdomen and pelvis is negative for any acute findings. Discharge to home. Follow-up with her surgeon at [facility] (GUILLERMINA HURLEY APRN) Course & Med Decision Making Patients Care and treatment plan provided by ER Nurse Practitioner. I was available for consult. Patient's chart reviewed. (RUTHIE SCHROEDER DO) May Disclaimer: May Disclaimer: This electronic medical record was generated, in whole or in part, using a voice recognition dictation system. (GUILLERMINA HURLEY APRN) Departure Departure Impression: Primary Impression: Abdominal pain Qualified Codes: R10.13 - Epigastric pain Disposition: HOME / SELF CARE / HOMELESS Condition: STABLE Referrals: PAU FRANKS MD (PCP) Follow-up in the next 7 days Patient Instructions: Abdominal Pain (Nonspecific) Additional Instructions: You were seen for abdominal pain. Your CT of the abdomen and pelvis is negative for any acute findings. Please follow-up with your surgeon in the next 7 days. GUILLERMINA HURLEY APRN Jan 05, 2021 00:31 RUTHIE SCHROEDER DO Jan 06, 2021 03:38
[2021-01-05 00:46] VITALS: BP 98/55
== END 2021-01-05 01:04 | disposition home or self-care (01) ==
LOC: ER 23:08
DX: R10.13 Epigastric pain (principal); J44.9 Chronic obstructive pulmonary disease, unspecified; F17.200 Nicotine dependence, unspecified, uncomplicated; Z86.718 Personal history of other venous thrombosis and embolism; Z90.710 Acquired absence of both cervix and uterus; Z98.51 Tubal ligation status; Z98.890 Other specified postprocedural states
CPT/HCPCS: 74176; 96372; 99285; J2270

== ENCOUNTER → 2021-01-14 | Outpatient (CLI) | payer MEDICAID ==
[2021-01-05 00:46] VITALS: BP 98/55
--- NOTE | 2021-01-14 12:08 | RAD ---
EXAMINATION: US DPLX VENOUS EXTREMITY LOWER LT, 01/14/2021 8:25 AM CLINICAL INDICATION: Left leg pain, history of DVT COMPARISON: None Available. PROCEDURE: Multiple grayscale, color Doppler and spectral Doppler sonographic images of the left lowe r extremity were obtained. FINDINGS: There is no evidence of deep venous thrombosis in the left lower extremity. The left common femoral, femoral and popliteal veins are echolucent with normal flow on color Doppler imaging. The v eins are fully compressible and show normal phasicity and reaction to augmentation. Visualized calf v eins are also normal in appearance. IMPRESSION: No evidence of deep venous thrombosis in the left lower extremity. Electronically signed by: Viv Malik MD (01/14/2021 12:05 PM) [id number]
== END ==
LOC: US 08:19 → EEVIPCON 08:19
PROVIDERS: ATTEND Nurse Practitioner Family
DX: M79.605 Pain in left leg (principal); Z86.718 Personal history of other venous thrombosis and embolism
CPT/HCPCS: 93971

== ENCOUNTER 2021-02-02 19:27 | Emergency (ER) | payer MEDICAID ==
[~2021-02-02] VITALS: Ht 167.6 cm; Wt 88.6 kg
--- NOTE | 2021-02-02 19:48 | PHYS DOC ---
Past Medical History Past Medical History: Anxiety, Asthma, COPD, Depression, DVT, Pneumonia Additional Past Medical Histor: back pain, PE, pneumonia, opioid dependency - methadone program Past Surgical History: Hysterectomy, Tubal ligation, Other Additional Past Surgical Histo: UMBILICAL HERNIA, BLADDER SLING Smoking Status: Current Every Day Smoker Alcohol Use: None Drug Use: Opiates General Adult EDM: Chief Complaint: CHEST PAIN HPI: HPI: Patient is a 45-year-old female presents with a chief complaint of chest pain. Patient states chest pain has been ongoing for 3 days it is in her left chest radiates to her left arm. In addition to the discomfort in her chest patient states she has had pain in her right arm and then her left suprapubic region. Chest pain right arm pain ongoing for 3 days on and off progressively coming worse. Patient suprapubic discomfort is been ongoing for greater than 1 week. No associated shortness of breath nausea vomiting urinary frequency urgency or diarrhea. Review of Systems: Review of Systems: Review of systems: Constitutional symptoms- No fever, no chills. Eyes- No Discharge, No Visual Loss Respiratory symptoms- No shortness of breath, No wheezing, No Dyspnea on Exertion Cardiovascular Systems; positive chest pain, No Palpitations, No syncope Gastrointestinal symptoms: Positive abdominal pain, no nausea, no vomiting or diarrhea. Genitourinary symptoms: No dysuria. Musculoskeletal symptoms: No back pain No extremity pain. NEUROLOGICAL Symptoms: No headache, no generalized weakness; No focal Weakness Skin: No rash. Heart Score: C/O Chest Pain: N/A Risk Factors: Risk Factors: DM, Current or recent (<one month) smoker, HTN, HLP, family histo ry of CAD, obesity. Risk Scores: Score 0 - 3: 2.5% MACE over next 6 weeks - Discharge Home Score 4 - 6: 20.3% MACE over next 6 weeks - Admit for Clinical Observation Score 7 - 10: 72.7% MACE over next 6 weeks - Early Invasive Strategies Allergies: Allergies: Allergies Coded Allergies Type Severity Reaction Last Updated Verified No Known Drug Allergies 01/19/13 No Physical Exam: PE: Constitutional: Well developed, well nourished, no acute distress, non-toxic appearance. [] HENT: Normocephalic, atraumatic, bilateral external ears normal, oropharynx moist, no oral exudates, nose normal. [] Eyes: PERRLA, EOMI, conjunctiva normal, no discharge. [] Neck: Normal range of motion, no tenderness, supple, no stridor. [] Cardiovascular:Heart rate regular rhythm, no murmur [] Lungs & Thorax: Bilateral breath sounds clear to auscultation [] Abdomen: Bowel sounds normal, soft, no tenderness, no masses, no pulsatile masses. [] Skin: Warm, dry, no erythema, no rash. [] Back: No tenderness, no CVA tenderness. [] Extremities: No tenderness, no cyanosis, no clubbing, ROM intact, no edema. [] Neurologic: Alert and oriented X 3, normal motor function, normal sensory function, no focal deficits noted. [] Psychologic: Affect normal, judgement normal, mood normal. [] EKG: EKG: Performed at 1942 Rate 79 Normal sinus rhythm No ST elevation No ST depression No acute DC [] Radiology/Procedures: Radiology/Procedures: [] Course & Med Decision Making: Course & Med Decision Making Pertinent Labs and Imaging studies reviewed. (See chart for details) [] Patient was evaluated for chief complaint. Work-up consisted of laboratory analysis radiologic imaging and EKG. Results reviewed and discussed with patient. Troponin x2 within normal limits. EKG without acute ischemic changes. Patient will be discharged home. May Disclaimer: May Disclaimer: This electronic medical record was generated, in whole or in part, using a voice recognition dictation system. Departure Departure Referrals: PAU FRANKS MD (PCP) RUTHIE SCHROEDER DO Feb 02, 2021 19:48
[2021-02-02] MEDS ORDERED: MORPHINE SULFATE 4 MG/ML INJ. IM ONE (20:00)
[2021-02-02 20:03] LABS: BASO # 0.1 x10^3/uL (0.0-0.2); BASO % 1 % (0-3); EOS # 0.2 x10^3/uL (0.0-0.7); EOS % 2 % (0-3); HEMATOCRIT 38.9 % (36.0-47.0); LYMPH # 1.7 x10^3/uL (1.0-4.8); LYMPH % 22 % (24-48); MEAN CORPUSCULAR HEMOGLOBIN 28 pg (25-35); MEAN CORPUSCULAR HGB CONC 34 g/dL (31-37); MEAN CORPUSCULAR VOLUME 83 fL (79-100); MONO # 0.5 x10^3/uL (0.0-1.1); MONO % 6 % (0-9); NEUT # 5.3 x10^3/uL (1.8-7.7); NEUT % 69 % (31-73); PLATELET COUNT 327 x10^3/uL (140-400); RED BLOOD COUNT 4.67 x10^6/uL (3.50-5.40); RED CELL DISTRIBUTION WIDTH 14.3 % (11.5-14.5); WHITE BLOOD COUNT 7.8 x10^3/uL (4.0-11.0)
[2021-02-02 20:16] LABS: CALCIUM 8.4 mg/dL (8.5-10.1); CREATININE 0.7 mg/dL (0.6-1.0); GFR 89.7; POTASSIUM 4.3 mmol/L (3.5-5.1)
[2021-02-02 20:18] LABS: ALBUMIN/GLOBULIN RATIO 0.6 (1.0-1.7); TOTAL BILIRUBIN 0.2 mg/dL (0.2-1.0); TOTAL PROTEIN 7.7 g/dL (6.4-8.2)
--- NOTE | 2021-02-02 20:35 | RAD ---
XR CHEST 1V Clinical Indication: Reason: chest pain / Spl. Instructions: / History: Comparison: Two-view chest October 04, 2017. Findings: Atherosclerotic aortic arch. The cardiomediastinal silhouette is normal. Lungs are clear. There is no pneumothorax. No pleural effusion is appreciated. No acute bone abnormality. IMPRESSION: No acute cardiopulmonary process. Electronically signed by: Abelardo Willson MD (02/02/2021 8:33 PM) [facility]
[2021-02-02 22:39] LABS: BILIRUBIN,URINE NEGATIVE (NEG); CLARITY,URINE CLEAR; COLOR,URINE YELLOW; NITRITE,URINE POSITIVE (NEG); PROTEIN,URINE NEGATIVE (NEG-TRACE); UROBILINOGEN,URINE 0.2 mg/dL (0.2 mg/dL)
[2021-02-02 22:49] LABS: BACTERIA,URINE MANY /HPF (0-FEW); RBC,URINE 0 /HPF (0-2)
[2021-02-03] MEDS ORDERED: PHEN-318 PO (01:17)
[2021-02-03] MEDS ORDERED: NITR100C62 PO (01:17)
[2021-02-03 01:18] VITALS: BP 99/58
--- NOTE | 2021-02-03 15:39 | NUR ---
IP: Informed pt of negative covid test. Pt verbalized understanding.
--- NOTE | 2021-02-03 16:01 | EKG ---
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
== END 2021-02-03 01:26 | disposition home or self-care (01) ==
LOC: ER 19:27
DX: R07.89 Other chest pain (principal); J44.9 Chronic obstructive pulmonary disease, unspecified; F17.200 Nicotine dependence, unspecified, uncomplicated; Z20.822 Contact with and (suspected) exposure to COVID-19; Z86.718 Personal history of other venous thrombosis and embolism; Z86.711 Personal history of pulmonary embolism
CPT/HCPCS: 36415; 71045; 80053; 81001; 84484; 85025; 87086; 87426; 93005; 96372; 99285; J2270; U0003; U0005

== ENCOUNTER 2021-03-05 03:48 | Emergency (ER) | payer MEDICAID ==
[~2021-03-05] VITALS: Ht 165.1 cm; Wt 91.0 kg
[~2021-03-05 03:48] MED LIST changes: +NITR100C62 PO; +PHEN-318 PO
[2021-03-05] MEDS ORDERED: ALBU2.5V8 IH (04:17)
--- NOTE | 2021-03-05 04:17 | PHYS DOC ---
Past Medical History Past Medical History: Anxiety, Asthma, COPD, Depression, DVT, Pneumonia Additional Past Medical Histor: HERNIA Past Surgical History: No Surgical History Additional Past Surgical Histo: UMBILICAL HERNIA, BLADDER SLING Smoking Status: Current Every Day Smoker Alcohol Use: None Drug Use: Opiates General Adult EDM: Chief Complaint: ABDOMINAL PAIN HPI: HPI: Patient is a 45 year old female presents via ems with the chief complaint of abdominal pain related to abdominal hernia. Patient arrived via ems and walked into the ER. Patient was in police custody when EMS was called. Per EMS-- Patient with initial complaint about shortness of breath then abdominal pain. Patient with cough and increased abdominal pain with cough. Exam patient with abdominal hernia which she has been scheduled for repair. Review of Systems: Review of Systems: Constitutional: Denies fever or chills. [] Eyes: Denies change in visual acuity. [] HENT: Denies nasal congestion or sore throat. [] Respiratory: Denies cough or shortness of breath. [] Cardiovascular: Denies chest pain or edema. [] GI: Denies abdominal pain, nausea, vomiting, bloody stools or diarrhea. [] : Denies dysuria. [] Musculoskeletal: Denies back pain or joint pain. [] Integument: Denies rash. [] Neurologic: Denies headache, focal weakness or sensory changes. [] Endocrine: Denies polyuria or polydipsia. [] Lymphatic: Denies swollen glands. [] Psychiatric: Denies depression or anxiety. [] Heart Score: C/O Chest Pain: N/A Risk Factors: Risk Factors: DM, Current or recent (<one month) smoker, HTN, HLP, family history of CAD, obesity. Risk Scores: Score 0 - 3: 2.5% MACE over next 6 weeks - Discharge Home Score 4 - 6: 20.3% MACE over next 6 weeks - Admit for Clinical Observation Score 7 - 10: 72.7% MACE over next 6 weeks - Early Invasive Strategies Allergies: Allergies: Allergies Coded Allergies Type Severity Reaction Last Updated Verified No Known Drug Allergies 01/19/13 No Physical Exam: PE: Constitutional: Well developed, well nourished, no acute distress, non-toxic appearance. [] HENT: Normocephalic, atraumatic, bilateral external ears normal, oropharynx moist, no oral exudates, nose normal. [] Eyes: PERRLA, EOMI, conjunctiva normal, no discharge. [] Neck: Normal range of motion, no tenderness, supple, no stridor. [] Cardiovascular:Heart rate regular rhythm, no murmur [] Lungs & Thorax: Bilateral breath sounds clear to auscultation [] Abdomen: Bowel sounds normal, soft, no tenderness, abdominal hernia presents Skin: Warm, dry, no erythema, no rash. [] Back: No tenderness, no CVA tenderness. [] Extremities: No tenderness, no cyanosis, no clubbing, ROM intact, no edema. [] Neurologic: Alert and oriented X 3, normal motor function, normal sensory function, no focal deficits noted. [] Psychologic: Affect normal, judgement normal, mood normal. [] Current Patient Data: Vital Signs: Vital Signs Date Time Temp Pulse Resp B/P (MAP) Pulse Ox O2 Delivery O2 Flow Rate FiO2 03/05/21 03:59 97.9 103 18 127/87 (100) 98 Room Air 97.9 EKG: EKG: [] Radiology/Procedures: Radiology/Procedures: [] Course & Med Decision Making: Course & Med Decision Making Pertinent Labs and Imaging studies reviewed. (See chart for details) [] Patient with known abdominal hernia. Hernia is chronic and patient is schedule from repair. Patient complained of abdominal pain while in police custody. I do not believe patients hernia is incarcerated. Patient has had no nausea or vomiting. Patient tolerated p.o. in the ER. Patient will be discharged with instructions to follow-up with her surgeon and have surgical procedure as scheduled. Patient requesting albuterol refill which was sent to her pharmacy. May Disclaimer: May Disclaimer: This electronic medical record was generated, in whole or in part, using a voice recognition dictation system. Departure Departure Impression: Primary Impression: Abdominal pain Additional Impression: Medication refill Disposition: HOME / SELF CARE / HOMELESS Condition: STABLE Referrals: PAU FRANKS MD (PCP) Patient Instructions: Hernia, Medication Refill, Emergency Department Scripts Albuterol Sulfate (PROAIR HFA INHALER) 8.5 Gm Hfa.aer.ad 2 PUFF IH PRN Q4-6HRS PRN for wheezing for 21 Days, #1 INHALER 0 Refills Prov: RUTHIE SCHROEDER I DO 03/05/21 RUTHIE SCHROEDER DO Mar 05, 2021 04:17
[2021-03-05 04:42] VITALS: BP 115/82
[2021-03-05] MEDS ORDERED: ACETAMINOPHEN 325 MG TABLET. PO ONE (05:00)
== END 2021-03-05 05:00 | disposition home or self-care (01) ==
LOC: ER 03:48
DX: R10.9 Unspecified abdominal pain (principal); J44.9 Chronic obstructive pulmonary disease, unspecified; F17.200 Nicotine dependence, unspecified, uncomplicated; Z86.718 Personal history of other venous thrombosis and embolism
CPT/HCPCS: 99283

== ENCOUNTER → 2021-06-18 | Outpatient (CLI) | payer MEDICAID ==
[~2021-06-18] MED LIST changes: +ALBU2.5V8 IH; +DIVA250T PO; +ENOX100D SQ; +LISI-130 PO; +OXYC1TAB15 PO; +QUET200T4 PO; +RIVA10TA PO
== END ==
LOC: LAB 14:44
PROVIDERS: ATTEND Surgery
DX: Z01.812 Encounter for preprocedural laboratory examination (principal); Z20.822 Contact with and (suspected) exposure to COVID-19; K43.9 Ventral hernia without obstruction or gangrene
CPT/HCPCS: U0003

== ENCOUNTER 2021-06-21 09:05 | Observation (INO) | payer MEDICAID ==
[2021-06-21] VITALS (10 sets, daily range): BP systolic 105–126; BP diastolic 72–87
[~2021-06-21] VITALS: Ht 167.6 cm; Wt 96.8 kg
[~2021-06-21 09:05] MED LIST changes: +DEXAMETHASONE SOD PHOS 4 MG/ML VIAL ONE; -ENOX100D SQ; +HYDROmorphone 2 MG/ML INJ. IVP PRN; +LIDOCAINE 2% PF 5 ML VIAL. ONE; +MIDAZOLAM HCL/PF 2 MG/2 ML VIAL. ONE; +MORPHINE SULFATE 2 MG/ML INJ. IVP PRN; +ONDANSETRON PF 4 MG/2 ML VIAL. ONE; -OXYC1TAB15 PO; +PROCHLORPERAZINE 10 MG/2 ML VIAL. IVP PRN; +PROPOFOL 10 MG/ML (20ML) VIAL. IV ONE; +ROCURONIUM 50 MG/5 ML VIAL. ONE; +fentaNYL PF VIAL 100 MCG/2 ML VIAL IVP PRN; +fentaNYL PF VIAL 100 MCG/2 ML VIAL ONE
[2021-06-21] MEDS ORDERED: BUPIVACAINE-EPI 0.25%-1:200000 MPF 30 ML VIAL. ONE (09:17)
--- NOTE | 2021-06-21 09:19 | PDOC1 ---
History and Physical Date of Admission Date of Admission DATE: 06/21/21 TIME: 09:15 History of Present Illness History of Present Illness The patient is a 46-year-old female who is referred due to an enlarging ventral hernia. She is interested in surgical repair. Past Medical History Past Medical History venous thromboembolism Cardiovascular: HTN Pulmonary: Asthma, Bronchitis, COPD Psych: Anxiety, Addictions, Depression Rheumatologic: No pertinent hx Renal/: No pertinent hx Endocrine: No pertinent hx Past Surgical History Past Surgical History: Hernia Repair, Tubal Ligation, Hysterectomy, Other Family History Family History: Hypertension Social History Smoke: <1 pack per day ALCOHOL: rare Drugs: None, Other Current Medications Current Medications Current Medications Fentanyl Citrate (Fentanyl 2ml Vial) 25 mcg PRN Q5MIN PRN IVP MILD PAIN 1-3; Start 06/21/21 at 06:00; Stop 06/22/21 at 05:59 Fentanyl Citrate (Fentanyl 2ml Vial) 50 mcg PRN Q5MIN PRN IVP MODERATE PAIN 4- 6; Start 06/21/21 at 06:00; Stop 06/22/21 at 05:59 Morphine Sulfate (Morphine Sulfate) 1 mg PRN Q10MIN PRN IVP SEVERE PAIN 7-10; Start 06/21/21 at 06:00; Stop 06/22/21 at 05:59 Ringer's Solution 1,000 ml @ 30 mls/hr Q24H IV ; Start 06/21/21 at 06:00; Stop 06/21/21 at 17:59 Hydromorphone HCl (Dilaudid) 0.5 mg PRN Q10MIN PRN IVP SEVERE PAIN 7-10, 2nd CHOICE; Start 06/21/21 at 06:00; Stop 06/22/21 at 05:59 Prochlorperazine Edisylate (Compazine) 5 mg PACU PRN PRN IVP NAUSEA, MRX1; Sta rt 06/21/21 at 06:00; Stop 06/22/21 at 05:59 Cefazolin Sodium/ Dextrose 50 ml @ 100 mls/hr 1X PREOP PRN IV PRIOR TO PROCEDURE; Start 06/21/21 at 06:00; Stop 06/21/21 at 18:00 Lidocaine HCl (Lidocaine Pf 2% Vial) 5 ml STK-MED ONCE .ROUTE ; Start 06/21/21 a t 08:07; Stop 06/21/21 at 08:08; Status DC Propofol (Diprivan) 200 mg STK-MED ONCE IV ; Start 06/21/21 at 08:07; Stop 06/21/21 at 08:08; Status DC Ondansetron HCl (Zofran) 4 mg STK-MED ONCE .ROUTE ; Start 06/21/21 at 08:07; Stop 06/21/21 at 08:08; Status DC Dexamethasone Sodium Phosphate (Decadron) 4 mg STK-MED ONCE .ROUTE ; Start 06/21/21 at 08:07; Stop 06/21/21 at 08:08; Status DC Rocuronium [place] (Zemuron) 50 mg STK-MED ONCE .ROUTE ; Start 06/21/21 at 08:08; Stop 06/21/21 at 08:08; Status DC Fentanyl Citrate (Fentanyl 2ml Vial) 100 mcg STK-MED ONCE .ROUTE ; Start 06/21/21 at 08:08; Stop 06/21/21 at 08:08; Status DC Midazolam HCl (Versed) 2 mg STK-MED ONCE .ROUTE ; Start 06/21/21 at 08:11; Stop 06/21/21 at 08:11; Status DC Active Scripts Active Proair Hfa Inhaler (Albuterol Sulfate) 8.5 Gm Hfa.aer.ad 2 Puff IH PRN Q4-6HRS PRN 21 Days Reported Seroquel (Quetiapine Fumarate) 200 Mg Tablet 200 Mg PO HS Lisinopril 40 Mg Tablet 40 Mg PO DAILY Depakote Er (Divalproex Sodium) 250 Mg Tab.er.24h 125 Mg PO DAILY Xarelto (Rivaroxaban) 10 Mg Tablet 10 Mg PO BID Lexapro (Escitalopram Oxalate) 20 Mg Tablet 30 Mg PO DAILY Klonopin (Clonazepam) 1 Mg Tablet 1 Mg PO TID Allergies Allergies: Coded Allergies: Iodinated Contrast Media (Verified Allergy, Intermediate, chills, headache, 06/16/21) ROS General: No: Chills, Night Sweats, Fatigue, Malaise, Appetite, Other PSYCHOLOGICAL ROS: YES: Anxiety Eyes: No Blurry vision, No Decreased vision, No Double vision, No Dry eyes, No Excessive tearing, No Eye Pain, No Itchy Eyes, No Loss of vision, No Photophobia, No Scotomata, No Uses contacts, No Uses glasses, No Other HEENT: No: Heacaches, Visual Changes, Hearing change, Nasal congestion, Nasal discharge, Oral lesions, Sinus pain, Sore Throat, Epistaxis, Sneezing, Snoring, Tinnitus, Vertigo, Vocal changes, Other ENDOCRINE: No: Breast Changes, Galactorrhea, Hair Pattern Changes, Hot Flashes, Malaise/lethargy, Mood Swings, Palpitations, Polydipsia/polyuria, Skin Changes, Temperature Intolerance, Unexpected Weight Changes, Other Respiratory: No: Cough, Hemoptysis, Orthopnea, Pleuritic Pain, Shortness of breath, SOB with excertion, Sputum Changes, Stridor, Tachypnea, Wheezing, Other Cardiovascular: No Chest Pain, No Palpitations, No Orthopnea, No Paroxysmal Noc. Dyspnea, No Edema, No Lt Headedness, No Other Gastrointestinal: No Nausea, No Vomiting, No Abdominal Pain, No Diarrhea, No Constipation, No Melena, No Hematochezia, No Other Genitourinary: No Dysuria, No Frequency, No Incontinence, No Hematuria, No Retention, No Discharge, No Urgency, No Pain, No Flank Pain, No Other, No , No , No , No , No , No , No Musculoskeletal: No Gait Disturbance, No Joint Pain, No Joint Stiffness, No Joint Swelling, No Muscle Pain, No Muscular Weakness, No Pain In:, No Swelling In:, No Other Neurological: No Behavorial Changes, No Bowel/Bladder ControlChng, No Confusion, No Dizziness, No Gait Disturbance, No Headaches, No Impaired Coord/balance, No Memory Loss, No Numbness/Tingling, No Seizures, No Speech Problems, No Tremors, No Visual Changes, No Weakness, No Other Skin: No Dry Skin, No Eczema, No Hair Changes, No Lumps, No Mole Changes, No Mottling, No Nail Changes, No Pruritus, No Rash, No Skin Lesion Changes, No Other, No Acne Physical Exam General: Alert, Oriented X3, Cooperative HEENT: Atraumatic Lungs: Clear to auscultation Abdomen: Soft (obese), Other (hernia palpable superior to umbilicus, upper mid abdomen) Rectal Exam: not examined PELVIC: Examination not indicated Extremities: No clubbing, No cyanosis Skin: No rashes, No breakdown Neuro: Normal speech Psych/Mental Status: Mental status NL VTE Prophylaxis Ordered VTE Prophylaxis Devices: No VTE Pharmacological Prophylaxi: Yes Assessment/Plan Assessment/Plan Plan for ventral hernia repair with mesh. The details and risks of surgery were discussed with the patient. In addition we emphasized weight loss and smoking c essation to lower surgical risks and improve outcomes. She understands and would like to proceed. Justifications for Admission Other Justification ADONIS ROBIN MD June 21, 2021 09:19
[2021-06-21] MEDS ORDERED: ENOX100D SQ (09:40)
[2021-06-21] MEDS: IV RINGERS,LACTATED 1000ML 1,000 ML IV SCH ×2 (09:40→13:13)
[2021-06-21 10:05] LABS: PROTHROMBIN TIME PATIENT 12.6 SEC (11.7-14.0)
[2021-06-21] MEDS ORDERED: NEOSTIGMINE METHYLSULFATE 5 MG/5 ML SYRINGE. ONE (10:20)
[2021-06-21] MEDS ORDERED: GLYCOPYRROLATE 1 MG/5 ML VIAL. ONE (10:20)
[2021-06-21] MEDS ORDERED: HYDROmorphone 2 MG/ML INJ. ONE (10:29)
--- NOTE | 2021-06-21 11:59 | PDOC4 ---
Operative Note Operative Note Operative Note: Preoperative Diagnosis: Ventral hernia Postoperative Diagnosis: Same Procedure: Ventral hernia repair with mesh Surgeon: Gurmeet Perfume Maker: Sole Goode MS 3; Regan ANDREA Anesthesia: General EBL: 20 mL Specimen: None Drains: None Complications: None Indication: The patient is a 46-year-old female who is referred due to an enlarging upper abdominal ventral hernia. She was offered surgical repair. The risks of surgery were discussed which include bleeding, infection, recurrence, pain, anesthetic risk, mesh reaction, visceral injury, potential need for additional surgery procedure. She understands and would like to proceed Description: The patient was taken to the operating room and placed supine on the operating table. General anesthesia was performed. The abdomen was prepped with ChloraPrep and draped with sterile towels, sheets, and an Ioban. An upper vertical midline incision was made in the skin with a scalpel. Cautery dissection was carried down to the fascia. The hernia sac was fairly large and we clarified the fascial edges. A retro-fascial plane was developed circumferentially with a combination of cautery and blunt dissection. A circular ventral EO ST mesh was then placed in this newly formed plane. There was good overlap of mesh in all directions of the fascial defect. The mesh was sutured at the 12, 3, 6, 9:00 positions using 0 Prolene in a horizontal fashion. Additional dissolvable tacks were placed in between to assist in fixation. The fascial edges were closed over the mesh with 0 Prolene. The deep subcutaneous tissues were approximated with 0 Vicryl. The more superficial subcutaneous tissue was closed with 3-0 Vicryl. Skin was closed with 4-0 Monocryl and infiltrated with quarter percent Marcaine with epinephrine. Steri-Strips and a sterile dressing were applied. The patient tolerated the procedure well and was sent to the recovery room in stable condition. At the end the case all counts were correct. ADONIS ROBIN MD June 21, 2021 11:59
[2021-06-21] MEDS ORDERED: NALOXONE 0.4 MG/ML VIAL. IV PRN (12:00)
[2021-06-21] MEDS: IV NORMAL SALINE 1000ML BAG 1,000 ML IV SCH (12:00)
[2021-06-21] MEDS ORDERED: MORPHINE SULFATE 2 MG/ML INJ. IV PRN (12:00)
[2021-06-21] MEDS ORDERED: oxyCODONE/APAP 5/325 1 TAB TABLET PO PRN (12:00)
[2021-06-21] MEDS ORDERED: ONDANSETRON PF 4 MG/2 ML VIAL. IVP PRN (12:00)
[2021-06-21] MEDS ORDERED: 0.9 % SODIUM CHLORIDE 10 ML DISP.SYRIN. IV PRN (12:00)
[2021-06-21] MEDS: clonazePAM 0.5 MG TABLET PO SCH ×2 (13:45→21:12)
--- NOTE | 2021-06-21 13:46 | NUR ---
pt arrived on unit very lethargic from surgery/anesthesia. pt in room moaning and groaning. held scheduled Klonopin for anxiety
[2021-06-21] MEDS: IV 1/2 NORMAL SALINE 1,000 ML IV SCH (13:54)
--- NOTE | 2021-06-21 15:30 | NUR ---
pt is still very lethargic from surgery. admission still needing to be done. 2 family members in the room at time of transport, tried to ask them the admission questions and they said they don't know alot of her history and it is best to wait to do her admission when she is more awake. pt is still sleeping, vitals stable.
--- NOTE | 2021-06-21 16:55 | NUR ---
Assumed care of patient at this time. Patient resting comfortably at this time.
[2021-06-21] MEDS: oxyCODONE/APAP 5/325 1 TAB TABLET PO PRN ×2 (17:43→22:15)
[2021-06-21] MEDS: QUEtiapine 100 MG TABLET. PO SCH (21:00)
[2021-06-22] MEDS: IV 1/2 NORMAL SALINE 1,000 ML IV SCH ×2 (03:00→13:00)
[2021-06-22 07:00] VITALS: BP 134/90
[2021-06-22] MEDS: oxyCODONE/APAP 5/325 1 TAB TABLET PO PRN ×4 (08:05→23:05)
[2021-06-22] MEDS: clonazePAM 0.5 MG TABLET PO SCH ×3 (08:06→20:32)
[2021-06-22] MEDS: DIVALPROEX EXTENDED RELEASE 250 MG TAB.ER.24H. PO SCH (08:06)
[2021-06-22] MEDS: CITALOPRAM 20 MG TABLET. PO SCH (08:07)
--- NOTE | 2021-06-22 08:48 | PDOC ---
SURGICAL PROGRESS NOTE DATE: 06/22/21 TIME: 08:47 Subjective reports significant pain taking few clears Vital Signs Vital Signs Date Time Temp Pulse Resp B/P (MAP) Pulse Ox O2 Delivery O2 Flow Rate FiO2 06/22/21 08:05 16 97 Nasal Cannula 1.0 06/21/21 19:00 97.8 78 105/80 (88) 97.8 I&O Intake and Output 06/22/21 07:00 Intake Total 1050 ml Output Total 20 ml Balance 1030 ml Intake IV Total 1050 ml Output Estimated Blood Loss 20 ml General: Alert, Cooperative Abdomen: Soft, Other (binder in place) Labs Laboratory Tests Test 06/21/21 09:15 06/21/21 09:40 POC SARS CoV-2 Antigen Negative (NEGATIVE) Prothrombin Time 12.6 SEC (11.7-14.0) Prothromb Time International Ratio 1.0 (0.8-1.1) Activated Partial Thromboplast Time 32 SEC (24-38) Laboratory Tests Test 06/21/21 09:15 06/21/21 09:40 POC SARS CoV-2 Antigen Negative (NEGATIVE) Prothrombin Time 12.6 SEC (11.7-14.0) Prothromb Time International Ratio 1.0 (0.8-1.1) Activated Partial Thromboplast Time 32 SEC (24-38) Assessment/Plan [facility] out of bed today Justicifation of Admission Dx: Justifications for Admission: Justification of Admission Dx: N/A PARMJIT MIX APRN June 22, 2021 08:48
[2021-06-22] MEDS: LISINOPRIL 20 MG TABLET PO SCH (09:00)
[2021-06-22 11:00] VITALS: BP 140/89
[2021-06-22] MEDS: IV NORMAL SALINE 1000ML BAG 1,000 ML IV SCH ×2 (12:00→14:49)
[2021-06-22 15:00] VITALS: BP 132/69
[2021-06-22 19:00] VITALS: BP 100/64
[2021-06-22] MEDS: QUEtiapine 100 MG TABLET. PO SCH (20:32)
[2021-06-22 23:00] VITALS: BP 170/119
[2021-06-23] MEDS: IV 1/2 NORMAL SALINE 1,000 ML IV SCH (01:59)
[2021-06-23 03:00] VITALS: BP 81/49
[2021-06-23 07:00] VITALS: BP 83/53
[2021-06-23] MEDS: clonazePAM 0.5 MG TABLET PO SCH ×2 (08:38→13:15)
[2021-06-23] MEDS: CITALOPRAM 20 MG TABLET. PO SCH (08:38)
[2021-06-23] MEDS: DIVALPROEX EXTENDED RELEASE 250 MG TAB.ER.24H. PO SCH (08:38)
--- NOTE | 2021-06-23 09:28 | PDOC ---
SURGICAL PROGRESS NOTE DATE: 06/23/21 TIME: 09:27 Subjective not up much yet pain issues no nausea Vital Signs Vital Signs Date Time Temp Pulse Resp B/P (MAP) Pulse Ox O2 Delivery O2 Flow Rate FiO2 06/23/21 08:25 Room Air 06/23/21 07:00 97.1 79 18 83/53 (63) 91 97.1 06/22/21 17:21 1.0 I&O Intake and Output 06/23/21 07:00 Intake Total 480 ml Output Total 1 ml Balance 479 ml Intake Oral 480 ml Output Urine Total 1 ml # Voids 5 # Bowel Movements 1 General: Oriented X3, Cooperative, Other (drowsy) Abdomen: Soft, Other (binder in place) Labs Laboratory Tests Test 06/21/21 09:40 Prothrombin Time 12.6 SEC (11.7-14.0) Prothromb Time International Ratio 1.0 (0.8-1.1) Activated Partial Thromboplast Time 32 SEC (24-38) Problem List VIH ambulate, oral pain meds, advance diet home later today or AM Justicifation of Admission Dx: Justifications for Admission: Justification of Admission Dx: N/A 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
--- NOTE | 2021-06-23 10:20 | NUR ---
Ate !00% regular breakfast, ambulated to bathroom and voided. Then ambulated down hallway with standby assist. Return to room and up in chair. Requested coffee. Cont. monitor.
[2021-06-23 11:00] VITALS: BP 97/63
[2021-06-23 13:00] VITALS: BP 92/54
[2021-06-23] MEDS: LISINOPRIL 20 MG TABLET PO SCH (13:00)
[2021-06-23] MEDS ORDERED: OXYC1TAB15 PO (13:42)
--- NOTE | 2021-06-23 13:45 | DISCH ---
DISCHARGE INSTRUCTIONS Condition on Discharge Condition on Discharge: Stable Activity After Discharge Activity Instructions for Disc: Activity as tolerated Lifting Instructions after Dis: No heavy lifting, No pulling or pushing Driving Instructions after Dis: Do not drive Weight Bearing Status after Di: As tolerated Diet after Discharge Diet after Discharge: Regular Diet Texture: Regular Wound Incision Care Wound/Incision Care: May get incision wet, No wound care needed Other wound/incision instructi: wear abdominal binder at all times, can remove to shower Checks after Discharge Checks after discharge: Check blood press - daily, Check your Temp as needed Contacting the DRAntonette after DC Call your doctor for: If your condition worsens Follow-Up Follow up with: Dr Levi 2 weeks, call to schedule [phone] Treatment/Equipment after DC Adaptive Equipment Issued: None PARMJIT MIX MUTUAL FUND MANAGER June 23, 2021 13:45
--- NOTE | 2021-06-23 14:51 | NUR ---
Discharged instructions given. Answered questions and concerns. Verbalized understanding. Pt discharged home. Escorted out by w/c. Accompanied by daughter.
--- NOTE | 2021-06-24 11:24 | PDOC3 ---
Discharge Summary Visit Information Date of Admission: June 21, 2021 Date of Discharge: June 23, 2021 Admitting Diagnosis: Ventral hernia Final Diagnosis Ventral hernia Brief Hospital Course Allergies Allergies Coded Allergies Type Severity Reaction Last Updated Verified Iodinated Contrast Media Allergy Intermediate chills, headache 06/21/21 Yes Vital Signs Vital Signs Date Time Temp Pulse Resp B/P (MAP) Pulse Ox O2 Delivery O2 Flow Rate FiO2 06/23/21 13:45 Room Air 06/23/21 13:00 81 92/54 06/23/21 11:00 98.7 16 93 98.7 Brief Hospital Course Ms. Montgomery is a 46 old female who underwent Ventral hernia repair with mesh. postoperatively pain slowly improved, tolerating diet, and ambulating better at discharge. Discharge Information Condition at Discharge: Stable Follow Up: Weeks (2) Disposition/Orders: D/C to Home Scheduled Clonazepam (Klonopin) 1 Mg Tablet, 1 MG PO TID for ANXIETY, (Reported) Entered as Reported by: GERSON JONES on 07/18/16 0105 Last Taken: Unknown Dose on 06/20/21 Last Action: Converted on 06/21/21 1154 by ADONIS ROBIN Divalproex Sodium (Depakote Er) 250 Mg Tab.er.24h, 125 MG PO DAILY for DEPRESSION , (Reported) Entered as Reported by: DREA JASON on 06/18/21 1703 Last Taken: Unknown Dose on 06/20/21 Last Action: Continued on 06/21/21 1154 by ADONIS ROBIN Enoxaparin Sodium (Lovenox) 100 Mg/1 Ml Disp.syrin, 100 MG SQ DAILY for ANTI- COAGULANT, (Reported) Entered as Reported by: DREA JASON on 06/21/21 0940 Last Taken: Unknown Dose on 06/20/21 1200 Last Action: HELD on 06/21/21 1154 by ADONIS ROBIN Escitalopram Oxalate (Lexapro) 20 Mg Tablet, 30 MG PO DAILY for ANTI-DEPRESSANT, Ref 0 (Reported) Entered as Reported by: MELISSA SILVER on 10/04/17 2345 Last Taken: Unknown Dose on 06/20/21 Last Action: Converted on 06/21/21 1154 by ADONIS ROBIN Lisinopril (Lisinopril) 40 Mg Tablet, 40 MG PO DAILY for FOR HYPERTENSION, #30 Ref 0 (Reported) Entered as Reported by: DREA JASON on 06/18/211702 Last Taken: Unknown Dose on 06/20/21 Last Action: Continued on 06/21/211153 by ADONIS ROBIN Quetiapine Fumarate (Seroquel) 200 Mg Tablet, 200 MG PO HS for SLEEP, (Reported) Entered as Reported by: DREA JASON on 06/18/211702 Last Taken: Unknown Dose on 06/11/21 Last Action: Converted on 06/21/211153 by ADONIS ROBIN Rivaroxaban (Xarelto) 10 Mg Tablet, 10 MG PO BID for BLOOD THINNER, (Reported) Entered as Reported by: DREA JASON on 06/18/211702 Last Taken: Unknown Dose on 06/18/21 Last Action: HELD on 06/21/211153 by ADONIS ROBIN Scheduled PRN Albuterol Sulfate (Proair Hfa Inhaler) 8.5 Gm Hfa.aer.ad, 2 PUFF IH PRN Q4-6HRS PRN for wheezing for 21 Days, #1 Ref 0 Prescribed by: RUTHIE SCHROEDER D.O. 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
== END 2021-06-23 14:51 | disposition home or self-care (01) ==
LOC: SURG 09:05 → 4 NORTH 11:50
PROVIDERS: ADMIT Surgery; ATTEND Surgery
DX: K43.9 Ventral hernia without obstruction or gangrene (principal); Z20.822 Contact with and (suspected) exposure to COVID-19; I10 Essential (primary) hypertension; J44.9 Chronic obstructive pulmonary disease, unspecified; F41.9 Anxiety disorder, unspecified; F17.200 Nicotine dependence, unspecified, uncomplicated; Z90.710 Acquired absence of both cervix and uterus; Z98.51 Tubal ligation status; Z79.899 Other long term (current) drug therapy
CPT/HCPCS: 36415; 49560; 49568; 85610; 85730; 96374; A4364; A4930; A6402; C1781; G0378; G0379; J0690; J1100; J1170; J2250; J2270; J2405; J2704; J2710; J3010; J3490; J7030; A4452